=== PATIENT | male | born 1965 | race Caucasian/White ===

== ENCOUNTER 2021-05-10 18:03 | Inpatient (IN) | payer MEDICAID, SELFPAY ==
[2021-05-10] VITALS (11 sets, daily range): BP systolic 119–144; BP diastolic 87–104; PULSE 82–101; RESP 16–24; TEMP 36.2–36.8; O2SAT 92–96; BMI 36.2; BMI 36.5
--- NOTE | 2021-05-10 18:19 | EKG12_ITS ---
Test Reason : CP Blood Pressure : / mmHG Vent. Rate : 095 BPM Atrial Rate : 095 BPM P-R Int : 182 ms QRS Dur : 116 ms QT Int : 374 ms P-R-T Axes : 058 -02 045 degrees QTc Int : 469 ms Normal sinus rhythm Lateral infarct , age undetermined Abnormal ECG Confirmed by PIPER ROBISON, PEPITO ([id number]), editor department CURLY GRIMES ([id number]) on 05/13/2021 10:02:13 AM Referred By: BRI Confirmed By:PEPIOT SALDAÑA MD
[2021-05-10 18:27] LABS: Absolute Lymphocyte Count 2.35 X10^3/uL (0.83-4.51); Absolute Neutrophil Count 8.5 X10^3/uL (2.0-7.7); Basophil# 0.07 X10^3/uL; Basophil% 0.6 % (0-1); Eosinophil# 0.06 X10^3/uL; Eosinophils% 0.5 % (0-5); Hematocrit 50.5 % (40-54); Hemoglobin 16.5 g/dL (13.0-16.5); Lymphocyte # 2.35 X10^3/ul (0.83-4.51); Lymphocyte % 20.1 % (19-41); Mean Corp Hgb Conc 32.7 g/dL (32-36); Mean Corpuscular Hgb 29.9 pg (27.0-32.0); Mean Corpuscular Volume 91.5 fL (80-94); Mean Platelet Vol. 8.3 fl (6.2-12.0); Monocyte# 0.72 X10^3/uL; Monocyte% 6.1 % (0-10); NRBC Flagged by Analyzer 0 % (0-5); Neutrophil # 8.48 X10^3/uL (2.7-7.7); Neutrophil % 72.4 % (47-70); Platelet Count 366 K/mm3 (150-450); RBC Distribution Width CV 13.3 % (11.6-14.6); RBC Distribution Width SD 45.1 fl (35.1-43.9); Red Blood Count 5.52 M/mm3 (4.6-6.2); White Blood Count 11.7 K/mm3 (4.4-11.0)
--- NOTE | 2021-05-10 18:27 | RAD_ITS ---
STUDY: X-RAY CHEST REASON FOR EXAM: Male, 56 years old. chest pain TECHNIQUE: 1 view COMPARISON: None. FINDINGS: Cardiomediastinal silhouette is unremarkable. Costophrenic angles are sharp. Patchy opacities are noted in the bilateral mid to lower lung zones. The trachea is midline. There is no pneumothorax. There are degenerative changes of the bilateral shoulders and the thoracic spine. RAD/Chest 1 View (Portable) IMPRESSION: Patchy opacities in the bilateral mid to lower lung zones, due to pneumonia or aspiration. Electronically Signed: Elton Villareal MD at 19:18 EDT Tel , Service support ,
--- NOTE | 2021-05-10 18:33 | EDS_ITS ---
HPI History of Present Illness Chief Complaint: Chest Pain Informant: patient Narrative Narrative: 56-year-old male presenting with chest pain. Patient states this started this morning while he was working. He states he had persistent pain throughout the day that has been waxing and waning. He has associated shortness of breath, diaphoresis, nausea. He states pain is 10 out of 10. He has not had these symptoms in the past. He is a smoker. He admits to methamphetamine use. Prior similar symptoms: No Recent Illness/Hospitalization: No [facility] Medical History (Updated 05/10/21 @ 19:[address] Sylvie Terry MD) Alcohol abuse Chronic pain Smoker Substance abuse Home Medications NK 05/10/21 [History Last Taken Unknown] Allergy/AdvReac Type Severity Reaction Status Date / Time No Known Allergies Allergy Verified 05/10/21 18:04 Social History Smoking Status: Current every day smoker tobacco type: cigarettes ROS ROS ED Constitutional Constitutional ED: Denies fever(s) Eyes Eyes: Denies change in vision ENT ENT ED: Denies rhinorrhea or sore throat Cardiovascular Cardiovascular: Reports chest pain; Denies palpitations Respiratory/Chest Respiratory/Chest: Reports dyspnea; Denies cough Gastrointestinal Gastrointestinal: Reports nausea; Denies abdominal pain, diarrhea or vomiting Genitourinary Genitourinary ED: Denies dysuria Musculoskeletal Musculoskeletal: Denies myalgias Integumentary Denies rash Neurologic Neurologic: Denies headache(s) Psychiatric Psychiatric: Denies suicidal thoughts EXAM Physical Exam Const Vital Signs: 05/10/21 18:04 05/10/21 18:12 05/10/21 18:43 Temperature 97.4 F L Temperature Source Oral Pulse Rate 97 Respiratory Rate 16 Respiratory Effort Normal Blood Pressure 144/104 H Blood Pressure Mean 117 Pulse Ox 96 94 Oxygen Delivery Method Room Air Nasal Cannula Oxygen Flow Rate (L/min) 2 05/10/21 19:13 Temperature Temperature Source Pulse Rate 89 Respiratory Rate 19 H Respiratory Effort Blood Pressure 138/102 H Blood Pressure Mean 114 Pulse Ox 92 Oxygen Delivery Method Room Air Oxygen Flow Rate (L/min) Positive well nourished and well developed General Appearance ED: well developed HEENT Reports normocephalic and head/scalp atraumatic Eyes PERRL and EOMs intact bilaterally Neck supple General: Negative for tenderness Chest Wall inspection of chest normal Resp normal respiratory effort and clear to auscultation bilaterally Cardio regular rate and regular rhythm GI non-tender and non-distended Palpation: soft; Negative for guarding or rebound tenderness present no CVA tenderness Extremity normal to inspection Neuro oriented x3 Sensorium / Orientation: alert Psych mental status grossly normal MDM MDM MDM Narrative Medical decision making narrative: Patient was given aspirin, morphine, Zofran. On reevaluation, he is feeling improved, chest pain is down to 1 out of 10. Discussed with Dr. Hernandez, patient was given Brilinta and Lovenox. Chest x- ray read by radiology as patchy opacities bilateral mid to lower lungs. Patient has no cough or fever. Procalcitonin and Covid test were ordered and are pending. Discussed with hospitalist for admission. Lab Data Attestation: I reviewed the patient's lab results. Labs: Laboratory Results - last 24 hr 05/10/21 05/10/21 18:21 18:21 WBC 11.7 H RBC 5.52 Hgb 16.5 Hct 50.5 MCV 91.5 MCH 29.9 MCHC 32.7 RDW Std Deviation 45.1 H RDW Coeff of Jayna 13.3 Plt Count 366 MPV 8.3 Immature Gran % (Auto) 0.300 Neut % (Auto) 72.4 H Lymph % (Auto) 20.1 [place] % (Auto) 6.1 Eos % (Auto) 0.5 Baso % (Auto) 0.6 Absolute Neuts (auto) 8.5 H Absolute Lymphs (auto) 2.35 Nucleated RBC % 0 Sodium 134 L Potassium 4.1 Chloride 100 Carbon Dioxide 27.0 Anion Gap 7 BUN 13 Creatinine 0.93 Estim Creat Clear Calc 84.78 Est GFR (MDRD) Af Amer 107 Est GFR (MDRD) Non-Af 89 BUN/Creatinine Ratio 13.9 Glucose 120 H Calcium 9.0 Troponin I High Sens 5677.0 H* Radiography Chest X-Ray - ED: 1 View, Read by ED Physician and Read by Radiologist Diagnostic Testing: Radiology Impression Chest X-Ray 05/10/21 18:27 IMPRESSION: Patchy opacities in the bilateral mid to lower lung zones, due to pneumonia or aspiration. Electronically Signed: Elton Villareal MD at 19:18 EDT Tel , Service support , EKG Initial EKG: Attestation: I personally reviewed and interpreted this EKG as follows: Interpretation: Sinus Rhythm Comments: Slight ST elevation in lead V5 only Discharge Plan Triage Chief Complaint: Chest Pain ED Provider: Sylvie Terry Dx/Rx/DC Orders Clinical Impression: Non-ST elevation [place] (NSTEMI) Prescriptions: No Action NK RF: 0 Primary Care Provider: Tosha Russell NP Referrals: Tosha Russell NP, CONTRACTS ADMINISTRATOR-C [Primary Care Provider] - Disposition Disposition: Acute Care Hospital [facility]
[2021-05-10] MEDS: Aspirin 81 MG TAB.CHEW 324 MG PO (18:40)
[2021-05-10] MEDS: Morphine 4 MG/ML Syringe IV (18:40)
[2021-05-10] MEDS: Ondansetron 4 MG/2 ML Vial IV (18:40)
[2021-05-10 18:48] LABS: Anion Gap 7 (5-15); BUN 13 mg/dL (7-18); BUN/Creat Ratio 13.9 RATIO (10-20); Chloride 100 mmol/L (98-107); Creatinine, Serum 0.93 mg/dL (0.70-1.30); EST Glomerular Filtration Rate 89 mL/min (>60); Est Glom Filt Rate - Afr Amer 107 mL/min (>60); Estimated Creatinine Clearance 84.78 ml/min; Glucose 120 mg/dL (74-106); Potassium 4.1 mmol/L (3.5-5.1); Sodium Level 134 mmol/L (136-145)
[2021-05-10] MEDS: TICAGRELOR 90 MG TABLET 180 MG PO (19:24)
[2021-05-10] MEDS: Enoxaparin 100 MG/ML Syringe SC (19:24)
--- NOTE | 2021-05-10 20:04 | PCM.HP.STD ---
Documented by User: ELVIRA Barba 05/10/21 20:15 HPI - General General Date of Admission: 05/10/21 HPI Narrative KOURTNEY ELIZABETH, is a 56 M who presents with complaints of chest pain. 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 Patient states that he has no medical history and that he has never had chest pain like this before. Patient states the chest pain was sudden onset with a sharp stabbing sensation. Patient denies radiation to arm neck or jaw. Patient does report shortness of breath concurrent with chest pain. Patient denies fever, chills, cough, nausea, vomiting, diarrhea, constipation. [facility]LY [facility], LAT[facility] Medical History (Updated 05/10/21 @ 22:[address] David Hernandez MD) Alcohol abuse Chronic pain Illicit drug use Smoker Substance abuse Home Medications NK 05/10/21 [History Last Taken Unknown] Allergy/AdvReac Type Severity Reaction Status Date / Time No Known Allergies Allergy Verified 05/10/21 18:04 Family History (Updated 05/10/21 @ 20:05 by ELVIRA Barba) Father COPD (chronic obstructive pulmonary disease) Mother Heart disease Hypertension no surgical history Social History (Updated 05/10/21 @ 20:54 by Franny Olmstead) Smoking Status: Heavy Smoker (>10/day) alcohol intake: current alcohol intake frequency: 3 or more drinks per day Alcohol type: beer details: 12 pack/day- beer substance use type: methamphetamine ROS Constitutional Constitutional: Denies anorexia, change in weight, chills, fatigue, fever(s), malaise or weakness Cardiovascular Cardiovascular: Reports chest pain and dyspnea; Denies edema, palpitations or radiating jaw, neck or arm pain Respiratory/Chest Respiratory/Chest: Denies cough or hemoptysis Gastrointestinal Gastrointestinal: Denies abdominal pain, constipation, diarrhea, nausea or vomiting Genitourinary Genitourinary: Denies dysuria Musculoskeletal Musculoskeletal: Denies back pain, extremity pain, joint pain or joint stiffness Integumentary Integumentary: Denies dry skin Neurologic Neurologic: Denies abnormal gait, abnormal speech, confusion, dizziness, focal weakness or headache(s) Psychiatric Psychiatric: Denies anxiety or depression Endocrine Endocrinology: Denies change in body appearance Hematologic/Lymphatic Hematologic/Lymphatic: Denies easy bleeding or easy bruising Vital Signs Vital Signs Vital Signs: 05/10/21 18:04 05/10/21 18:12 05/10/21 18:43 Temperature 97.4 F L Temperature Source Oral Pulse Rate 97 Respiratory Rate 16 Respiratory Effort Normal Blood Pressure 144/104 H Blood Pressure Mean 117 Pulse Ox 96 94 Oxygen Delivery Method Room Air Nasal Cannula Oxygen Flow Rate (L/min) 2 05/10/21 19:13 05/10/21 19:54 Temperature 97.1 F L Temperature Source Temporal Pulse Rate 89 89 Respiratory Rate 19 H 22 H Respiratory Effort Blood Pressure 138/102 H 137/103 H Blood Pressure Mean 114 114 Pulse Ox 92 94 Oxygen Delivery Method Room Air Nasal Cannula Oxygen Flow Rate (L/min) 2 Weight Weight: 238 lb 8.642 oz Body Mass Index (BMI) 36.2 Physical Exam Const alert and oriented x3 General Appearance: cooperative HEENT normocephalic and head/scalp atraumatic Eyes conjunctivae normal and no scleral icterus Neck supple and no JVD General: trachea midline Resp normal respiratory effort and normal air movement Effort and Inspection: tachypneic Auscultation: diminished lung sounds diffuse Cardio regular rate, regular rhythm, S1 normal heart sound and S2 normal heart sound GI normal to inspection, nondistended, normoactive bowel sounds, soft to palpation and non-tender Extremity normal capillary refill and no clubbing, cyanosis or edema General Extremity: no tenderness to palpation of joints or extremities Skin General Skin Exam: no breakdown and turgor normal Lesions: no lesions Rashes: no rashes Neuro no focal motor deficits and no sensory deficits noted Speech: speech normal Motor Exam: Negative for general weakness Psych thought process normal Attitude: agitated Mood & Affect: flat affect Results Lab / Micro Data Result Diagrams: 05/10/21 18:21 05/10/21 18:21 Labs: Laboratory Results - last 24 hr 05/10/21 18:21: WBC 11.7 H, RBC 5.52, Hgb 16.5, Hct 50.5, MCV 91.5, MCH 29.9, MCHC 32.7, RDW Std Deviation 45.1 H, RDW Coeff of Jayna 13.3, Plt Count 366, MPV 8.3, Immature Gran % (Auto) 0.300, Neut % (Auto) 72.4 H, Lymph % (Auto) 20.1, [place] % (Auto) 6.1, Eos % (Auto) 0.5, Baso % (Auto) 0.6, Absolute Neuts (auto) 8.5 H, Absolute Lymphs (auto) 2.35, Nucleated RBC % 0 05/10/21 18:21: Sodium 134 L, Potassium 4.1, Chloride 100, Carbon Dioxide 27.0, Anion Gap 7, BUN 13, Creatinine 0.93, Estim Creat Clear Calc 84.78, Est GFR (MDRD) Af Amer 107, Est GFR (MDRD) Non-Af 89, BUN/Creatinine Ratio 13.9, Glucose 120 H, Calcium 9.0, Troponin I High Sens 5677.0 H* Radiology Impression Chest X-Ray 05/10/21 18:27 IMPRESSION: Patchy opacities in the bilateral mid to lower lung zones, due to pneumonia or aspiration. Electronically Signed: Elton Villareal MD at 19:18 EDT Tel , Service support , Assessment & Plan Assessment/Plan (1) Non-ST elevation [place] (NSTEMI): PLAN: 1. Chest pain -Admit patient to PCU for cardiac monitoring -Cardiology consulted, patient discussed with Dr. Hernandez who plans to take patient to Computer Systems Designer first thing in the morning. -Trend cardiac enzymes, initial value 5677 -CBC and CMP ordered for a.m. -Daily weights -Cardiac diet ordered, n.p.o. at midnight -Encourage incentive spirometry -oxygen per protocol -EKG upon arrival to floor, as needed EKG ordered for arrhythmia or chest pain -Loading dose of Brilinta received in ER along with therapeutic subcu Lovenox, will continue Brilinta 90 mg twice daily 2. Possible pneumonia -Chest x-ray shows possible pneumonia versus aspiration -Due to patient presentation and denial of fever, chills, cough will obtain procalcitonin and Covid test prior to initiation of antibiotics -CBC in a.m., trend white blood cell count 3. Alcohol abuse -CIWA protocol with as needed Ativan per protocol -Multivitamin, folic acid, thiamine ordered 4. Tobacco abuse -Inpatient smoking cessation ordered DVT prophylaxis-SCDs, would recommend starting subcu Lovenox following heart catheterization This patient was seen by ELVIRA Barba under the supervision of Dr. Abreu. Documented by User: Dr. Ángel Abreu MD 05/11/21 00:27 HPI - General General Date of Admission: 05/10/21 [facility] Medical History (Updated 05/10/21 @ 22:[address] David Hernandez MD) Alcohol abuse Chronic pain Illicit drug use Smoker Substance abuse Home Medications NK 05/10/21 [History Last Taken Unknown] Allergy/AdvReac Type Severity Reaction Status Date / Time No Known Allergies Allergy Verified 05/10/21 18:04 Family History (Updated 05/10/21 @ 20:05 by ELVIRA Barba) Father COPD (chronic obstructive pulmonary disease) Mother Heart disease Hypertension Social History (Updated 05/10/21 @ 20:54 by Franny Olmstead) Smoking Status: Heavy Smoker (>10/day) alcohol intake: current alcohol intake frequency: 3 or more drinks per day Alcohol type: beer details: 12 pack/day- beer substance use type: methamphetamine Results Lab / Micro Data Result Diagrams: 05/10/21 18:21 05/10/21 18:21 Charges/Coding Addendum Addendum: Patient was seen and examined independently. I agree with assessment and plan by ELVIRA Barba Patient is a 56-year-old male with a significant history of alcoholism; methamphetamine abuse; and tobacco abuse who presents emergency department with persistent intermittent severe chest pain. A chest pain is located under his left breast. His chest pain does not radiate. He described the chest pain as sharp, pushing and dull. His chest pain started after working. His chest pain was so severe that he left work. 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 Associated with his symptom is shortness of breath lightheadedness and diaphoresis. Physical exam: General: Well-nourished, well-developed, no acute distress Head: Normocephalic, atraumatic, no tenderness Eyes: PERRLA, EOMI ENT, no trauma, moist mucous membranes, no rhinorrhea Neck: Nontender, full range of motion, no spinal tenderness, deformities, step-off CVS: Regular rate and rhythm Respiratory no acute distress, clear to auscultation bilaterally, chest wall nontender, no wheezing Abdomen: Soft, nontender, nondistended, normal bowel sounds, no masses : Deferred Extremities: Nontender full range of motion, no trauma Skin: Normal color, no trauma, abrasions Neuro: Alert, oriented, cranial nerves II through XII grossly intact. Non-STEMI Place on a monitored bed at PCU Impression of chest x-ray by radiology patchy opacities in the bilateral mid to lower lung zones, due to pneumonia or aspiration .Actual CXR image was independently visualized. Diffuse patchy opacities seen. Actual EKG tracing was independently visualized. EKG tracing showed Q waves in lateral leads. Received aspirin 324 mg at the emergency department. Also he received therapy dose of Lovenox and Brilinta. Per cardiology recommendation patient will be started on Brilinta. ASA 81 mg p.o. daily ordered SL NTG 0.4 mg prn as needed for chest pain ordered Morphine as needed for pain ordered We will check lipid panel. ED labs reviewed showed severely elevated high-sensitivity troponin. Serial cardiac enzymes ordered Stat EKG as needed for chest pain We will keep n.p.o. after midnight. Cardiology consult. Elevated blood pressure without diagnosis of hypertension His blood pressure is not within goal. Trend blood pressures for now. Tobacco abuse Counseled Alcohol abuse Counseled. Folic acid; thiamine; multivitamins ordered. Placed on CIWA protocol as needed Ativan. Methamphetamine abuse Counselled Abnormal x-ray No clinical symptoms of pneumonia. Review of Emergency department labs showed only mild elevated white counts. Discussed with ED doc to get procalcitonin and Covid screen. DVT prophylaxis: Not indicated since patient received therapeutic dose of Lovenox. Visit Charges Inpatient E&M: 51933 Init Hosp L3
[2021-05-10 20:39] LABS: Procalcitonin 0.06 ng/mL (0.00-0.09)
--- NOTE | 2021-05-10 20:43 | EKG12_ITS ---
Test Reason : CP ADMIT Blood Pressure : / mmHG Vent. Rate : 097 BPM Atrial Rate : 097 BPM P-R Int : 170 ms QRS Dur : 112 ms QT Int : 378 ms P-R-T Axes : 063 -16 029 degrees QTc Int : 480 ms Normal sinus rhythm Lateral infarct , age undetermined Inferior infarct , age undetermined Abnormal ECG Confirmed by PIPER ROBISON, PEPITO ([id number]), development editor CURLY GRIMES ([id number]) on 05/13/2021 10:20:03 AM Referred By: Confirmed By:PEPITO SALDAÑA MD
[2021-05-10] MEDS: Nitroglycerin (INPATIENT USE) 0.4 MG TAB.SUBL SL (21:52)
--- NOTE | 2021-05-10 22:07 | CM.ED ---
SW Note Referral Source: STEMI Alert Referral Reason: STEMI alert SW responded to STEMI alert for patient. Patient was alert and oriented. Per staff no family present. RN called patient's significant other and updated about patient's procedure. SW offered any additional support or assistance to family. SW will remain available for family if needs arise. Plan: Product Applications Engineer for STEMI and then ICU Dania ACUÑA
--- NOTE | 2021-05-10 22:23 | PCM.CONS.C ---
Assessment & Plan Assessment/Plan (1) Chest pain, unspecified: QUALIFIERS: Ischemic chest pain type: unstable angina pectoris PLAN: He does have chest discomfort which is waxed and waned. It is concerning for unstable angina pectoris. He was noted to have an abnormal troponin I level and abnormal ECGs. Initially at the time of his original emergency department cardiovascular consultation he appeared to be resting comfortably. At that time the plan was to continue to monitor the patient, follow his cardiac enzymes and his ECGs, and subsequently obtain further evaluation was left ventricular wall motion systolic function with a transthoracic echocardiogram as well as obtain further evaluation of his coronary anatomy with a diagnostic cardiac catheterization. He was to continue medical therapy in the interim. However, after being admitted the PCU, he had recurrence of his chest discomfort. A follow-up ECG demonstrated the aforementioned changes concerning for an evolving acute inferior lateral MO/STEMI. Thus after discussion with interventional cardiology a STEMI alert was initiated. The patient has subsequently been brought to the cardiac catheterization laboratory for further evaluation and care. (2) Non-ST elevation MO (NSTEMI): PLAN: The patient does have findings initially thought compatible with a non-ST segment elevation MO. There would be concerns that his original event may have been brought on by a type I event secondary to underlying CAD versus a type II event secondary to supply demand mismatch potentially exacerbated by the use of illicit drugs such as his methamphetamine. As his clinical course has progressed, as noted above, he now appears to have evolved to an ST segment elevation MO. Thus he is continuing medical therapy and has been brought to the cardiac catheterization laboratory for further evaluation and care under the direction of interventional cardiology. (3) HTN (hypertension): QUALIFIERS: Hypertension type: unspecified Qualified Code(s): I10 - Essential (primary) hypertension PLAN: His blood pressure was elevated in the emergency department. He states he has no history of hypertension. His blood pressure will need to be followed and treated accordingly. 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 Again it is unclear whether this may be a contributing factor to his ongoing cardiovascular findings. Addt'l Comments The patient's case has been previously discussed with the patient, his female significant other, Dr. Terry of the [facility] emergency department staff, Dr. Abreu of the [facility] staff, and Dr. Lynch of interventional cardiology. This note was generated using a voice recognition system and there may be incorrect words, spelling or punctuation that were not noted when reviewing the office note prior to saving. HPI Consult Data Date of Consult: 05/10/21 HPI Narrative HPI Narrative: KOURTNEY ELIZABETH, is a 56 year old white male who presents for cardiovascular consultation for evaluation of chest discomfort, abnormal troponin I levels, and an abnormal ECG. The patient states the best of his knowledge she has no cardiovascular history and he does not recall ever undergoing any cardiovascular evaluation. He states today he developed chest discomfort which was substernal. He stated he had numbness in both upper extremities. He felt somewhat short of breath. He was also somewhat diaphoretic. He believes he may have been somewhat nauseated but did not have emesis. He does admit to using methamphetamine yesterday as recreational use. He subsequently presented to the emergency department for further evaluation. There he was noted to have an abnormal troponin I level. His ECG demonstrated sinus rhythm with a lateral MO pattern of indeterminate age. A chest x-ray was performed which demonstrated bilateral lower lobe patchy changes per radiology (please see official report). He was treated by the emergency room staff with a combination of aspirin, morphine sulfate, and Zofran. Status post evaluation of his cardiovascular status he received additional medical therapy with ticagrelor/Brilinta as well as enoxaparin/Lovenox. At the time of the emergency department cardiovascular consultation he appeared to be resting comfortably. Thus, he was subsequently was placed in the PCU for further evaluation and care which was to include from a cardiovascular standpoint transthoracic echocardiogram and diagnostic cardiac catheterization. After he was admitted to the PCU he noted recurrence of his chest discomfort. A repeat ECG was obtained. Based upon the repeat ECG there was concerns of sinus rhythm with ST segment changes concerning for an acute inferior lateral MO/STEMI. He was reevaluated at the bedside. His case was reviewed with Dr. Lynch of interventional cardiology. He concurred with the aforementioned findings. A STEMI alert was subsequently initiated. The patient was recommended for further evaluation with diagnostic cardiac catheterization per the STEMI protocol and he was in agreement with this. Thus he was subsequently taken to the cardiac catheterization laboratory for further evaluation and care under the direction of Dr. Lynch. [facility] Medical History (Updated 05/10/21 @ 22:[address] David Hernandez MD) Alcohol abuse Chronic pain Illicit drug use Smoker Substance abuse Home Medications NK 05/10/21 [History Last Taken Unknown] Allergy/AdvReac Type Severity Reaction Status Date / Time No Known Allergies Allergy Verified 05/10/21 18:04 Family History (Updated 05/10/21 @ 20:05 by Janett Martin NP-C) Father COPD (chronic obstructive pulmonary disease) Mother Heart disease Hypertension Social History (Updated 05/10/21 @ 20:54 by Franny Olmstead) Smoking Status: Heavy Smoker (>10/day) alcohol intake: current alcohol intake frequency: 3 or more drinks per day Alcohol type: beer details: 12 pack/day- beer substance use type: methamphetamine ROS Constitutional Constitutional: Reports as per HPI Eyes Eyes: Reports as per HPI ENT HEENT: Reports as per HPI Cardiovascular Cardiovascular: Reports chest pain, chest pain at rest, diaphoresis, dyspnea and nausea Respiratory/Chest Respiratory/Chest: Reports dyspnea Gastrointestinal Gastrointestinal: Reports as per HPI Genitourinary Genitourinary: Reports as per HPI Musculoskeletal Musculoskeletal: Reports as per HPI Neurologic Neurologic: Reports as per HPI Physical Exam Const alert and oriented x3 Orientation / Consciousness: awake HEENT normocephalic, head/scalp atraumatic and hearing grossly normal bilaterally Eyes PERRL and EOMs intact bilaterally Neck full ROM, supple and no JVD Chest inspection of chest normal Chest Narrative: Palpation of chest: Tenderness to palpation over the left precordial area Resp normal respiratory effort and clear to auscultation bilaterally Cardio regular rate, regular rhythm, S1 normal heart sound and S2 normal heart sound GI normal to inspection, nondistended, normoactive bowel sounds Extremity no pedal edema Skin Skin Narrative: No obvious rash Neuro oriented x3, moves all extremities, no focal motor deficits and no sensory deficits noted Psych mental status grossly normal Procedure Criteria Type of Procedure Procedure Type: Elective Elective Risks - COVID COVID Risk Discussion: The surgeon/proceduralist and patient have discussed in detail the risk of exposure to and/or potential harm posed by the COVID-19 virus with having a surgery/procedure at this time versus the risk of delaying the surgery/procedure. It is not possible to know either the risk of delaying the surgery or procedure or chance of getting an infection with perfect accuracy, but a joint decision was made between the patient and the surgeon/proceduralist to proceed at this time with the scheduled surgery/procedure as indicated on the consent form. Objective Data Vital Signs: Vital Signs Temp Pulse Resp BP Pulse Ox 97.7 F L 101 H 20 H 132/97 H 93 05/10/21 21:56 05/10/21 21:56 05/10/21 21:56 05/10/21 21:56 05/10/21 21:56 Oxygen Flow Rate (L/min) 2 Oxygen Delivery Method Nasal Cannula Weight: 240 lb 4.862 oz Body Mass Index (BMI) 36.5 Lab / Micro Data Result Diagrams: 05/10/21 18:21 05/10/21 18:21 Labs: Laboratory Results - last 24 hr 05/10/21 18:21: WBC 11.7 H, RBC 5.52, Hgb 16.5, Hct 50.5, MCV 91.5, MCH 29.9, MCHC 32.7, RDW Std Deviation 45.1 H, RDW Coeff of Jayna 13.3, Plt Count 366, MPV 8.3, Immature Gran % (Auto) 0.300, Neut % (Auto) 72.4 H, Lymph % (Auto) 20.1, [place] % (Auto) 6.1, Eos % (Auto) 0.5, Baso % (Auto) 0.6, Absolute Neuts (auto) 8.5 H, Absolute Lymphs (auto) 2.35, Nucleated RBC % 0 05/10/21 18:21: Sodium 134 L, Potassium 4.1, Chloride 100, Carbon Dioxide 27.0, Anion Gap 7, BUN 13, Creatinine 0.93, Estim Creat Clear Calc 84.78, Est GFR (MDRD) Af Amer 107, Est GFR (MDRD) Non-Af 89, BUN/Creatinine Ratio 13.9, Glucose 120 H, Calcium 9.0, Troponin I High Sens 5677.0 H* 05/10/21 20:03: Procalcitonin 0.06 Micro: Microbiology 05/10/21 19:25 Mucosa - Nose SARS-CoV-2 Antigen (Rapid) - Final Cardiology Labs/Tests 05/10/21 18:21: WBC 11.7 H, RBC 5.52, Hgb 16.5, Hct 50.5, MCV 91.5, MCH 29.9, MCHC 32.7, Plt Count 366, MPV 8.3, Immature Gran % (Auto) 0.300, Neut % (Auto) 72.4 H, Lymph % (Auto) 20.1, [place] % (Auto) 6.1, Eos % (Auto) 0.5, Baso % (Auto) 0.6, Absolute Neuts (auto) 8.5 H, Nucleated RBC % 0 05/10/21 18:21: Sodium 134 L, Potassium 4.1, Chloride 100, Carbon Dioxide 27.0, Anion Gap 7, BUN 13, Creatinine 0.93, Est GFR (MDRD) Af Amer 107, Est GFR (MDRD) Non-Af 89, BUN/Creatinine Ratio 13.9, Glucose 120 H, Calcium 9.0 Rhythm: Sinus rhythm EKG: As noted above Radiography Diagnostic Testing: Radiology Impression Chest X-Ray 05/10/21 18:27 IMPRESSION: Patchy opacities in the bilateral mid to lower lung zones, due to pneumonia or aspiration. Electronically Signed: Elton Villareal MD at 19:18 EDT Tel , Service support ,
--- NOTE | 2021-05-10 22:42 | NURSING ---
Called report to GREER Morel in ICU.
--- NOTE | 2021-05-10 23:11 | EKG12_ITS ---
Test Reason : CP ADMIT Blood Pressure : / mmHG Vent. Rate : 094 BPM Atrial Rate : 094 BPM P-R Int : 186 ms QRS Dur : 114 ms QT Int : 360 ms P-R-T Axes : 060 011 085 degrees QTc Int : 450 ms Normal sinus rhythm Lateral infarct , age undetermined Inferior infarct , possibly acute ACUTE TX / STEMI Consider right ventricular involvement in acute inferior infarct Abnormal ECG Confirmed by PIPER ROBISON, PEPITO ([id number]), assistant film editor CURLY GRIMES ([id number]) on 05/13/2021 10:20:27 AM Referred By: Confirmed By:PEPITO SALDAÑA MD
--- NOTE | 2021-05-10 23:18 | PCIREPORT_ITS ---
PCI Cardiac Cath Report PCI Report: Procedure performed; 1. Successful percutaneous core intervention of the culprit lesion occluded proximal LAD left circumflex with predilatation and placement of a drug-eluting stent 3 x 26 overlapped by 3 x 18 and achieved excellent result With reduction of stenosis from 100% to 0 and initial GABRIELA 0 flow followed post PCI by GABRIELA III. 2. Placement of TR band to close the right radial artery arteriotomy site 3. Left heart catheterization 4. Use of Integrilin 2 bolus followed by Integrilin infusion for 18 hours/for thrombus in the proximal left circumflex. Preprocedure diagnosis; This patient was seen by Dr. Luciano dowling today when he presented to the ER having symptoms of chest pain typical retrosternal with elevated high sensitive troponin diagnosed with non-ST elevation MT and was taken to the progressive care unit started on Lovenox given 1 mg/kg a total of 100 mg of Lovenox nitroglycerin aspirin Brilinta and while he was in PCU he developed recurrent chest pain EKG showed significant change with ST elevation noted in the inferolateral lead and ST depression was noted in the anterior lead. Based on this clinical presentation and change in the EKG and ongoing symptoms of chest pain was taken as an emergency to the [facility] with a clinical diagnosis of STEMI. From the EKG change likely the lesion could be in the left circumflex. Access; Right radial artery approach with placement of 6 Kazakh Terumo sheath Diagnostic catheter and interventional equipment; 1. 5 Kazakh JL 3.5 2. 5 Kazakh JR4 catheter 3. 3.5 EBU guide catheter 6 Kazakh. 4. 0.014 BMW universal straight 190 cm 5. 0.014 run-through extra floppy 180 cm straight. 6. 2.5 x 15 mm emerge MR balloon 7. 3 x 26 +3 x 18 mm drug-eluting stent/Orsiro Procedure in detail; Patient brought as an emergency to [facility] Access obtained from the right radial artery and a cocktail of verapamil, heparin as well as nitroglycerin was given through the right radial artery The new proceed with the 5 Kazakh JL 3.5 advanced ascending aorta cannulated the left main multiple views of the left coronary system obtained including ST LUCIAN, WRIGHT cranial and caudal views followed by [place] JR4 catheter and selective angiography of right consumer obtained following this cholangiography were studied Culprit lesion identified as occluded proximal left circumflex we proceed with the guide catheter 3.5 EBU guide catheter cannulated the left main angiographic view obtained followed by crossing the lesion using run-through 0.014 wire, predilated the lesion using 2.5 x 50 mm balloon followed by placement of a drug- eluting stent 3 x 26 mm noted there is a thrombus in the distal portion of the stent overlap 3 x 18 stent postdilated up to 16 CELIA and achievement of excellent result angiographically. Symptoms of chest pain resolved and patient remained stable hemodynamically. Please note this patient received 100 mg of Lovenox around 7:00 PM and then taken to the [facility] around 10:00 less than 8-hour there is no indication to add any further anticoagulation at this point and we use Integrilin in this case due to the thrombus at the distal portion of the stent. Findings; 1. Left main normal angiographically bifurcating into LAD and the left circumflex. 2. LAD large vessel reach all the way to the apex, mid LAD there is a sidebranch which is moderate in size with 70% stenosis mid LAD itself has no o bstructive atherosclerosis of around 30% it reach all the way to the apex and has abundant septal branches 3. Left circumflex occluded proximally/culprit lesion for STEMI with successful PCI as described. 4. RCA moderate sized vessel angiographically mid RCA had around 20-30% stenosis 5. Left ventriculogram was performed, EF around 35% with inferobasal and apical hypokinesia, no systolic gradient across aortic valve and no mitral regurgitation. Conclusion; This patient has culprit lesion of occluded proximal circumflex with successful percutaneous catheterization as described The LV systolic function severely reduced which is out of proportion to his coronary lesions. Recommendations; 1. To continue DAPT/Brilinta 90 mg twice daily in addition to low-dose aspirin 81 mg for 1 year 2. Case discussed with the primary regulated program manager Dr. Hernandez will start patient on treatment with a statin, carvedilol, MARY inhibitor in addition to dual antiplatelet therapy 3. Patient advised lifestyle change 4. If he remains stable clinically to consider PCI of the sidebranch diagonal proximal around 70% which can be done as an outpatient in 2 to 3 weeks. Ghada Lycnh MD,FACC,[facility] Interventional cardiology
--- NOTE | 2021-05-10 23:45 | NURSING ---
231- [facility]. Patient assessed and settled. Integrilin drip is on and to run at 2mcg/kg/min according to dr. Lynch. Post cardiac cath EKG is done and sent to Dr. Lynch.
[2021-05-10] MEDS: 0.9% Normal Saline 1,000 ML 150 ML IV (23:54)
[2021-05-10] MEDS: Morphine 2 MG/ML Syringe IV (23:57)
[2021-05-11] VITALS (24 sets, daily range): BP systolic 108–152; BP diastolic 65–104; PULSE 80–99; RESP 12–25; TEMP 36.2–36.9; O2SAT 90–97
[2021-05-11 00:33] LABS: Absolute Lymphocyte Count 2.23 X10^3/uL (0.83-4.51); Absolute Neutrophil Count 12.5 X10^3/uL (2.0-7.7); Basophil# 0.06 X10^3/uL; Basophil% 0.4 % (0-1); Eosinophil# 0.09 X10^3/uL; Eosinophils% 0.6 % (0-5); Hematocrit 49.7 % (40-54); Hemoglobin 16.3 g/dL (13.0-16.5); Lymphocyte # 2.23 X10^3/ul (0.83-4.51); Lymphocyte % 14.1 % (19-41); Mean Corp Hgb Conc 32.8 g/dL (32-36); Mean Corpuscular Hgb 30.4 pg (27.0-32.0); Mean Corpuscular Volume 92.6 fL (80-94); Mean Platelet Vol. 8.4 fl (6.2-12.0); Monocyte# 0.84 X10^3/uL; Monocyte% 5.3 % (0-10); NRBC Flagged by Analyzer 0 % (0-5); Neutrophil # 12.51 X10^3/uL (2.7-7.7); Neutrophil % 79.2 % (47-70); Platelet Count 374 K/mm3 (150-450); RBC Distribution Width CV 13.4 % (11.6-14.6); RBC Distribution Width SD 45.8 fl (35.1-43.9); Red Blood Count 5.37 M/mm3 (4.6-6.2); White Blood Count 15.8 K/mm3 (4.4-11.0)
[2021-05-11 01:15] LABS: Anion Gap 9 (5-15); BUN 12 mg/dL (7-18); BUN/Creat Ratio 13.6 RATIO (10-20); Calcium,Total 8.9 mg/dL (8.5-10.1); Chloride 98 mmol/L (98-107); Creatinine, Serum 0.88 mg/dL (0.70-1.30); EST Glomerular Filtration Rate 94 mL/min (>60); Est Glom Filt Rate - Afr Amer 114 mL/min (>60); Glucose 117 mg/dL (74-106); Potassium 3.9 mmol/L (3.5-5.1); Sodium Level 136 mmol/L (136-145)
--- NOTE | 2021-05-11 02:18 | NURSING ---
Physician Notifications: Dr. Lynch Notifications: [id number]: Post cardiac cath sent to Dr. Lynch 0021: Dr. Lynch responded noted and to hold Lovenox. 0043: Patient is threatening to leave AMA 0045: Dr. Lynch responded to let Dr. Hernandez know due to being a high risk patient 0053: Dr. Hernandez notified and message left on significant other's voicemail 0052: Dr. Lynch responded noted 0151: Patient has agreed to stay until mid morning. Dr. Hernandez Notifications: 0048: Patient threatening to leave AMA after TR band is removed. Will most likely be able to me removed at 1am. Janett Carmona CNP is coming to bedside to speak with patient. 0049: Dr. Hernandez responded all you can do is encourage patient to stay, maybe try to speak with spouse 0052: I called and left message with Franny the significant other. 0137: Patient's TR band is off and dressing applied. I stressed to patient how dangerous it is to leave at this time and that he could bleed out and . Patient states that he is still leaving regardless of risks. 0139: Dr. Hernandez responded patient's decision and thank you for your efforts 0140: Patient's post cath troponin came back >125,000 0150: Patient has now agreed to stay until mid morning 0150: Dr. Hernandez responded noted Dr. Abreu Notifications: 0002: Post Cardiac Cath EKG sent 0002: Dr. Abreu responded noted 0139: Patient states he is leaving AMA now that the TR band is off and dressing is applied. I called and left message for Franny the significant other and notified Dr. Hernandez. I stressed how dangerous it is for him to leave and how he could bleed out and but patient says he is still leaving. 0139: Dr. Abreu responded to let him know when patient leaves. Janett Martin CNP Notifications: 0043: Could you call so I can speak with you about ICU 5 0045: Janett called and I stated that patient is wanting to leave AMA. I stressed the danger of leaving and he still is persitent on leaving. Janett stated that she would be up to assess. 0050: Janett is at bedside assessing and speaking with patient stressing the risks of leaving AMA. 0135: Patient states that he is ready to leave but wants to speak with doctor first 0136: Janett calls back and states she will be up to speak with patient once again. 0145: Janett is at bedside talking with patient once again. Patient has agreed to stay until mid morning 0130: TR band is off and dressing is applied. Site looks good, no drainage, brill, or hematoma. Patient states now that the band is off he is ready to leave. I stated that there are a lot of risks if he were to leave. Risks including bleeding out from puncture site with being on anticoagulants including the Integrilin drip or having a heart attack after his cardiac procedure. I also informed him that he needs to sign AMA form and needs to find his own transportation but should speak with physician about leaving. He agreed to speak with physician before leaving. Janett Martin CNP spoke with patient more in depth about risks and patient agreed to stay until mid morning. Will continue to encourage benefits of staying and continue to monitor closely.
[2021-05-11] MEDS: 0.9% Normal Saline 1,000 ML 150 ML IV (03:07)
[2021-05-11 05:39] LABS: Absolute Lymphocyte Count 2.35 X10^3/uL (0.83-4.51); Absolute Neutrophil Count 7.5 X10^3/uL (2.0-7.7); Basophil# 0.05 X10^3/uL; Basophil% 0.5 % (0-1); Eosinophil# 0.09 X10^3/uL; Eosinophils% 0.8 % (0-5); Hematocrit 47.8 % (40-54); Hemoglobin 16.2 g/dL (13.0-16.5); Lymphocyte # 2.35 X10^3/ul (0.83-4.51); Lymphocyte % 21.7 % (19-41); Mean Corp Hgb Conc 33.9 g/dL (32-36); Mean Corpuscular Volume 91.4 fL (80-94); Mean Platelet Vol. 8.3 fl (6.2-12.0); Monocyte# 0.79 X10^3/uL; Monocyte% 7.3 % (0-10); NRBC Flagged by Analyzer 0 % (0-5); Neutrophil # 7.51 X10^3/uL (2.7-7.7); Neutrophil % 69.2 % (47-70); Platelet Count 361 K/mm3 (150-450); RBC Distribution Width CV 13.5 % (11.6-14.6); RBC Distribution Width SD 45.7 fl (35.1-43.9); Red Blood Count 5.23 M/mm3 (4.6-6.2); White Blood Count 10.8 K/mm3 (4.4-11.0)
[2021-05-11 05:57] LABS: ALB/GLOB Ratio 0.7 RATIO (0.9-2.4); AST(SGOT) 957 U/L (15-37); Alanine Aminotransfer ALT/SGPT 132 U/L (16-61); Albumin, Serum 3.2 g/dL (3.2-5.0); Alkaline Phosphatase 100 U/L (45-117); Anion Gap 7 (5-15); BUN 12 mg/dL (7-18); BUN/Creat Ratio 14.3 RATIO (10-20); Bilirubin, Direct 0.16 mg/dL (0.00-0.30); Calcium,Total 8.3 mg/dL (8.5-10.1); Chloride 96 mmol/L (98-107); Creatinine, Serum 0.84 mg/dL (0.70-1.30); EST Glomerular Filtration Rate 100 mL/min (>60); Est Glom Filt Rate - Afr Amer 122 mL/min (>60); Estimated Creatinine Clearance 93.87 ml/min; Globulin 4.6 g/dL (2.2-4.2); Glucose 112 mg/dL (74-106); Potassium 4.2 mmol/L (3.5-5.1); Protein, Total 7.8 g/dL (6.4-8.2); Sodium Level 133 mmol/L (136-145)
--- NOTE | 2021-05-11 06:00 | EKG12_ITS ---
Test Reason : AM EKG Blood Pressure : / mmHG Vent. Rate : 083 BPM Atrial Rate : 083 BPM P-R Int : 156 ms QRS Dur : 100 ms QT Int : 414 ms P-R-T Axes : 054 -58 066 degrees QTc Int : 486 ms Normal sinus rhythm Left axis deviation Lateral infarct , age undetermined Abnormal ECG Confirmed by JARAD ROBISON, JOSE ([id number]), acquisition editor CURLY GRIMES ([id number]) on 05/13/2021 10:26:56 AM Referred By: AMBER Confirmed By:JOSE ABRAHAM MD
--- NOTE | 2021-05-11 06:05 | NURSING ---
0600- Spoke with significant other Franny on the phone about patient wanting to leave AMA and all the risks of doing so. She asked if she could come in and speak with him and try to get him to stay. I stated that she was welcome to come and speak with him. She stated she was on her way.
[2021-05-11 08:02] LABS: Cholesterol 162 mg/dL (200); High Density Lipoprotein 47 mg/dL; Triglycerides 122 mg/dL; Very Low Density Lipoprotein 24 mg/dL (5-40)
--- NOTE | 2021-05-11 08:30 | PN.CARD_ITS ---
Subjective Subjective Patient seen and evaluated today at bedside, and discussed with the nursing staff and the primary tanyard worker Dr. Hernandez Spouse was at bedside patient is 59 of discharge AGAINST MEDICAL ADVICE Patient had a history of illicit drug use, alcohol abuse and smoking He had no symptoms of active chest pain. Objective Data Vital Signs: Vital Signs Temp Pulse Resp BP Pulse Ox 98.5 F 88 21 H 116/78 94 05/11/21 04:00 05/11/21 07:00 05/11/21 07:00 05/11/21 07:00 05/11/21 07:17 Oxygen Flow Rate (L/min) 2 Oxygen Delivery Method Room Air Weight: 238 lb 12.17 oz Body Mass Index (BMI) 36.5 Intake & Output: Intake and Output for Last 24 Hours 05/09/21 05/10/21 05/11/21 23:59 23:59 23:59 Intake Total 549.2 / 549.2 Output Total 2600 / 2600 Balance -2050.8 / -2050.8 Lab / Micro Data Result Diagrams: 05/11/21 05:30 05/11/21 05:30 Labs: Laboratory Results - last 24 hr 05/10/21 18:21: WBC 11.7 H, RBC 5.52, Hgb 16.5, Hct 50.5, MCV 91.5, MCH 29.9, MCHC 32.7, RDW Std Deviation 45.1 H, RDW Coeff of Jayna 13.3, Plt Count 366, MPV 8.3, Immature Gran % (Auto) 0.300, Neut % (Auto) 72.4 H, Lymph % (Auto) 20.1, Villalba % (Auto) 6.1, Eos % (Auto) 0.5, Baso % (Auto) 0.6, Absolute Neuts (auto) 8.5 H, Absolute Lymphs (auto) 2.35, Nucleated RBC % 0 05/10/21 18:21: Sodium 134 L, Potassium 4.1, Chloride 100, Carbon Dioxide 27.0, Anion Gap 7, BUN 13, Creatinine 0.93, Estim Creat Clear Calc 84.78, Est GFR (MDRD) Af Amer 107, Est GFR (MDRD) Non-Af 89, BUN/Creatinine Ratio 13.9, Glucose 120 H, Calcium 9.0, Troponin I High Sens 5677.0 H* 05/10/21 20:03: Procalcitonin 0.06 05/10/21 21:45: Troponin I High Sens 03780.1 H* 05/11/21 00:25: Sodium 136, Potassium 3.9, Chloride 98, Carbon Dioxide 29.0, Anion Gap 9, BUN 12, Creatinine 0.88, Estim Creat Clear Calc 89.60, Est GFR (MDRD) Af Amer 114, Est GFR (MDRD) Non-Af 94, BUN/Creatinine Ratio 13.6, Glucose 117 H, Calcium 8.9, Troponin I High Sens > 045862.0 H* 05/11/21 00:25: WBC 15.8 H, RBC 5.37, Hgb 16.3, Hct 49.7, MCV 92.6, MCH 30.4, MCHC 32.8, RDW Std Deviation 45.8 H, RDW Coeff of Jayna 13.4, Plt Count 374, MPV 8.4, Immature Gran % (Auto) 0.400, Neut % (Auto) 79.2 H, Lymph % (Auto) 14.1 L, Villalba % (Auto) 5.3, Eos % (Auto) 0.6, Baso % (Auto) 0.4, Absolute Neuts (auto) 12.5 H, Absolute Lymphs (auto) 2.23, Nucleated RBC % 0 05/11/21 05:30: WBC 10.8, RBC 5.23, Hgb 16.2, Hct 47.8, MCV 91.4, MCH 31.0, MCHC 33.9, RDW Std Deviation 45.7 H, RDW Coeff of Jayna 13.5, Plt Count 361, MPV 8.3, Immature Gran % (Auto) 0.500, Neut % (Auto) 69.2, Lymph % (Auto) 21.7, Villalba % (Auto) 7.3, Eos % (Auto) 0.8, Baso % (Auto) 0.5, Absolute Neuts (auto) 7.5, Absolute Lymphs (auto) 2.35, Nucleated RBC % 0 05/11/21 05:30: Sodium 133 L, Potassium 4.2, Chloride 96 L, Carbon Dioxide 30.0, Anion Gap 7, BUN 12, Creatinine 0.84, Estim Creat Clear Calc 93.87, Est GFR (MDRD) Af Amer 122, Est GFR (MDRD) Non-Af 100, BUN/Creatinine Ratio 14.3, Glucose 112 H, Calcium 8.3 L, Total Bilirubin 0.90, Direct Bilirubin 0.16, AST 957 H, ALT 132 H, Alkaline Phosphatase 100, Total Protein 7.8, Albumin 3.2, Globulin 4.6 H, Albumin/Globulin Ratio 0.7 L 05/11/21 05:30: Triglycerides 122, Cholesterol 162, LDL Cholesterol 91, VLDL Cholesterol 24, HDL Cholesterol 47 Micro: Microbiology 05/10/21 19:25 Mucosa - Nose SARS-CoV-2 Antigen (Rapid) - Final Cardiology Labs/Tests 05/10/21 18:21: WBC 11.7 H, RBC 5.52, Hgb 16.5, Hct 50.5, MCV 91.5, MCH 29.9, MCHC 32.7, Plt Count 366, MPV 8.3, Immature Gran % (Auto) 0.300, Neut % (Auto) 72.4 H, Lymph % (Auto) 20.1, Villalba % (Auto) 6.1, Eos % (Auto) 0.5, Baso % (Auto) 0.6, Absolute Neuts (auto) 8.5 H, Nucleated RBC % 0 05/10/21 18:21: Sodium 134 L, Potassium 4.1, Chloride 100, Carbon Dioxide 27.0, Anion Gap 7, BUN 13, Creatinine 0.93, Est GFR (MDRD) Af Amer 107, Est GFR (MDRD) Non-Af 89, BUN/Creatinine Ratio 13.9, Glucose 120 H, Calcium 9.0 05/11/21 00:25: Sodium 136, Potassium 3.9, Chloride 98, Carbon Dioxide 29.0, Anion Gap 9, BUN 12, Creatinine 0.88, Est GFR (MDRD) Af Amer 114, Est GFR (MDRD) Non-Af 94, BUN/Creatinine Ratio 13.6, Glucose 117 H, Calcium 8.9 05/11/21 00:25: WBC 15.8 H, RBC 5.37, Hgb 16.3, Hct 49.7, MCV 92.6, MCH 30.4, MCHC 32.8, Plt Count 374, MPV 8.4, Immature Gran % (Auto) 0.400, Neut % (Auto) 79.2 H, Lymph % (Auto) 14.1 L, Villalba % (Auto) 5.3, Eos % (Auto) 0.6, Baso % (Auto) 0.4, Absolute Neuts (auto) 12.5 H, Nucleated RBC % 0 05/11/21 05:30: WBC 10.8, RBC 5.23, Hgb 16.2, Hct 47.8, MCV 91.4, MCH 31.0, MCHC 33.9, Plt Count 361, MPV 8.3, Immature Gran % (Auto) 0.500, Neut % (Auto) 69.2, Lymph % (Auto) 21.7, Villalba % (Auto) 7.3, Eos % (Auto) 0.8, Baso % (Auto) 0.5, Absolute Neuts (auto) 7.5, Nucleated RBC % 0 05/11/21 05:30: Sodium 133 L, Potassium 4.2, Chloride 96 L, Carbon Dioxide 30.0, Anion Gap 7, BUN 12, Creatinine 0.84, Est GFR (MDRD) Af Amer 122, Est GFR (MDRD) Non-Af 100, BUN/Creatinine Ratio 14.3, Glucose 112 H, Calcium 8.3 L, Total Bilirubin 0.90, Direct Bilirubin 0.16 05/11/21 05:30: Triglycerides 122, Cholesterol 162, LDL Cholesterol 91, VLDL Cholesterol 24, HDL Cholesterol 47 Rhythm: EKG: Evidence of ST elevation noted initially in the inferior leads and lateral. With ST depression noted in V2 V3. Radiography Diagnostic Testing: Radiology Impression Chest X-Ray 05/10/21 18:27 IMPRESSION: Patchy opacities in the bilateral mid to lower lung zones, due to pneumonia or aspiration. Electronically Signed: Elton Villareal MD at 19:18 EDT Tel , Service support , Physical Exam Narrative Patient alert and orientated x3 hall monitor showed underlying normal sinus rhythm with PACs Cardiac examination; S1-S2 regular, no murmur, no systolic or diastolic murmur, no pericardial rub Chest examination; Clear to auscultation bilaterally Examination abdomen; soft no palpable mass Examination lower extremity no clubbing no cyanosis no extremity edema. Assessment & Plan Assessment/Plan (1) Non-ST elevation CO (NSTEMI): PLAN: Patient 56-year-old patient with illicit drug use presented to the ER with symptoms of chest pain has a elevation of cardiac biomarkers and was transferred to PCU where he had worsening of his symptoms of chest pain with significant change in the EKG with ST elevation in the inferior Seen and evaluated by Dr. Hernandez and we brought him to the Immigration Coordinator for cardiac catheterization showed occlusion of a large proximal left circumflex underwent PCI and stenting of the left circumflex On the angiographic film he had LV dysfunction with dilated cardiomyopathy, eje ction fraction around 35% likely alcoholic cardiomyopathy On review of the angiogram also had a lesion in the diagonal branch which is proximal at least 70%. Recommendation plan; 1. Patient to continue on DAPT/Brilinta/low-dose aspirin for 1 year 2. Advised cessation of alcohol and lifestyle change patient also had illicit drug abuse 3. Problem with compliance as patient is insisting of discharge AGAINST MEDICAL ADVICE 4. To set up as an outpatient for PCI of the sidebranch diagonal and also to start on phase 1 of cardiac rehab. 5. Follow-up with the primary tanyard worker Dr. Luciano pena for continuation of cardiac care plan. 6. All cardiac care plan discussed in detail with the patient, nursing staff and spouse. (2) HTN (hypertension): QUALIFIERS: Hypertension type: unspecified Qualified Code(s): I10 - Essential (primary) hypertension (3) Chest pain, unspecified: QUALIFIERS: Ischemic chest pain type: unstable angina pectoris (4) Illicit drug use: (5) STEMI (ST elevation myocardial infarction):
--- NOTE | 2021-05-11 09:08 | PCM.DC ---
Discharge Instructions Diet Discharge Diet: No restrictions Activity Discharge Activity: Return to Normal Activity Weight Bearing Status: Full weight bearing Follow Up Care Test Results: Test results from this visit will be discussed in further detail at your follow-up appointment, if applicable. Discharge Plan Admission Admit Date/Time: 05/10/21 20:03 Primary Reason for Your Visit: acute LA Attending Provider: Donnie Yu Primary Care Provider: Tosha Russell NP Consulting Providers: David Hernandez Instructions Patient Instructions: ED Chest Pain, Noncardiac Discharge Orders/Prescriptions Prescriptions: No Action NK RF: 0 Referrals / Follow Up: Tosha Russell NP, EMPLOYMENT SERVICE SPECIALIST-C [Primary Care Provider] - Disposition Disposition (needs filled in before D/C Order can be placed): Against Medical Advice
--- NOTE | 2021-05-11 09:14 | CRPHASE1 ---
Patient Communication PHII Cardiac Rehab Discussed with Patient:: Yes Guide to Cardiac Rehab Given to Patient:: Yes Cardiac Rehab Facility Choice List Given to Patient:: Yes Choice Program [facility] PHII:: Communication Given to CR Information Technology Auditor:: Ghada Lynch Phase II Cardiac Rehab:: Yes Sessions:: 36 sessions - 3 days/wk, 12 weeks Cardiac Rehabilitation Info Cardiac Rehabilitation Program Information: Cardiac Rehabilitation is important for patients like you who are recovering from a heart problem. Cardiac rehabilitation programs are recognized as integral to the continued care of the patient with coronary heart disease. The cardiac rehabilitation program is designed to optimize a patient's physical, psychological, and social functioning. Health rn transitional care work in cardiac rehabilitation programs and assist you with getting the treatments you need to get stronger and healthier - like exercise, healthy eating habits, and medications. Cardiac rehabilitation has been show to help people with heart problems live longer and have better life enjoyment than people who do not go to cardiac rehabilitation. Please contact the Cardiac Rehabilitation Program at [facility] at in two weeks if you have not heard from them.
--- NOTE | 2021-05-11 09:14 | CRPH1.INSTRU ---
General Education CAD and cardiac anatomy and function:: Patient communicates acknowledgment, Family communicates acknowledgment Explanation of diagnoses and procedures:: Patient communicates acknowledgment, Family communicates acknowledgment Sign/Symptoms of UT:: Patient communicates acknowledgment, Family communicates acknowledgment Antiplatelet therapy: Patient communicates acknowledgment, Family communicates acknowledgment Smoking Patient Nicotine/Smoking Risk Factors Are:: Cigarettes, Illicit drug use Recommendations Include:: Smoking cessation strategies/Smoking packet, Participation in a smoking cessation program, Previous smoker; encourage continued cessation Nicotine/Smoking Response Code:: Patient communicates acknowledgment, Family communicates acknowledgment Dyslipidemia Patient Dyslipidemia Risk Factors Are:: Total Cholesterol, Triglycerides, HDL, LDL Recommendations Include:: Lipid profile provided, Reviewed NCEP/ATP guidelines, Therapeutic Lifestyle Change dietary guidelines Dyslipidemia Response Code:: Patient communicates acknowledgment, Family communicates acknowledgment Overweight/Obesity Patient Overweight/Obesity Risk Factors Are:: Obesity - > or = 30 Recommendations Include:: Weight loss of 5-10%, Reduced calorie diet, Exercise 5-7 times/week Overweight/Obesity:: Patient communicates acknowledgment, Family communicates acknowledgment Hypertension Recommendations Include:: Maintain BP <130/85, DASH dietary guidelines, Decrease/maintain normal body weight, Moderation of ETOH Hypertension:: Patient communicates acknowledgment Diabetes Patient Diabetes Risk Factors Are:: No documented hx of diabetes Metabolic Syndrome Patient Metabolic Syndrome Risk Factors Are [3 of 5]:: Fasting blood sugar > 100 mg/dL, Waist circumference > 35 [female] or 40 [male], Hypertension Recommendations Include:: Reinforce compliance to risk factor modifications, Encouraged follow-up with Primary Care Physician Metabolic Syndrome Response Code:: Patient communicates acknowledgment, Family communicates acknowledgment Sedentary Patient Sedentary Risk Factors Are:: Lack of regular exercise Recommendations Include:: Aerobic exercise 5-7 times/week for 20-30 minutes continuously, Benefits of regular exercise, Discussed home walking program, Monitored Outpatient Cardiac Rehab Sedentary Response Code:: Patient communicates acknowledgment, Family communicates acknowledgment Stress Patient Stress Risk Factors Are:: Patient denies stress as a risk factor
--- NOTE | 2021-05-11 09:15 | NURSING ---
Addendum entered by Alka Solomon 05/11/21 10:26: 0845: Patient refused echo as well Original Note: 05/11/21 0830: Patient and Dr. Lynch spoke about leaving AMA. Patient agreed to stay only if allowed to smoke a cigarette. 0845: This RN spoke to patient and informed him that he is not permitted to smoke on hospital grounds, he would need to sign out AMA if he wants to do that. Patient stated to this RN get this shit off me I am leaving. This RN offered patient a nicotine patch, patient refused. Dr. Yu, Dr. Hernandez both notified of patient leaving AMA. Patient refused to wait for prescriptions to be filled before he leaves, stating I'll wait if I can go smoke. This RN stated that is not possible, he will have to pick them up once they are filled. This RN informed patient it is in his best interest to hop picker the medications and take as prescribed to prevent further heart attacks and reclosure of stented artery. Patient signed AMA forms. 0850: Dr. Yu at bedside to also confirm patient still wants to leave AMA and understand his risks of doing so. Patient still wants to leave. Patient then escorted out by security.
--- NOTE | 2021-05-16 07:35 | DS.PCM_ITS ---
Providers Date of Admission: 05/10/21 Date of Discharge: 05/11/21 Primary Care Physician: ELVIRA Allen Consultations 05/10/21 20:43 Consult: Cardiology Routine Consulting Provider: David Hernandez Reason for Consult: Chest pain EMERGENT Consult: No MD Notified: Yes Date Notified: 05/10/21 Time Notified: 19:58 Method of Notification: Provider Initiated Reason For Visit: NSTEMI Diagnosis Discharge Diagnosis (1) Non-ST elevation [place] (NSTEMI): Status: Acute Code(s): I21.4 - Non-ST elevation (NSTEMI) myocardial infarction (2) HTN (hypertension): Status: Chronic Code(s): I10 - Essential (primary) hypertension Qualifiers: Hypertension type: unspecified Qualified Code(s): I10 - Essential (primary) hypertension (3) Chest pain, unspecified: Status: Acute Code(s): R07.9 - Chest pain, unspecified Qualifiers: Ischemic chest pain type: unstable angina pectoris (4) Illicit drug use: Status: Chronic Code(s): F19.90 - Other psychoactive substance use, unspecified, uncomplicated (5) STEMI (ST elevation myocardial infarction): Status: Acute Code(s): I21.3 - ST elevation (STEMI) myocardial infarction of unspecified site Plan: 1. Acute STEMI #2 occlusive coronary artery disease proximal LAD left circumflex, mid LAD sidebranch #3 nonocclusive coronary artery disease right coronary artery, mid LAD #4 illicit drug use (methamphetamines) #5 noncompliance with medical regimen #6 unspecified personality disorder #7 ischemic cardiomyopathy #8 probable alcohol abuse #9 essential hypertension Medications at Discharge Home Medications NK 05/10/21 Hospital Course Operations None Procedures Cardiac catheterization (With placement of drug-eluting stent in LAD left circumflex artery) Summary of Care Provided Minutes Spent on Discharge: 31 Hospital Course: This 56-year-old white male presented to the emergency room at [facility] with a chief complaint of chest pain, work-up in the emergency room included labs which showed a slightly elevated white blood cell count at 11.7, patient's troponin was elevated at 5677, patient's EKG did not sh ow an acute injury pattern. Patient's chest x-ray showed patchy opacities in the bilateral mid to lower lung zones. The case was discussed with cardiology, patient was admitted to PCU, however patient had recurrence of his chest discomfort and a follow-up EKG demonstrated changes concerning for an evolving acute inferior lateral STEMI, STEMI alert was initiated and the patient went to cardiac [employer] where he was noted to have occlusive coronary artery disease in the circumflex coronary artery along with occlusive disease in the mid LAD sidebranch which was not felt to be a culprit lesion. Patient underwent insertion of a SRINATH in the circumflex artery, he was then admitted to ICU, the following morning, patient became belligerent and demanded to be allowed to smoke outside, when he was told he could not, he decided to sign out AGAINST MEDICAL ADVICE. Patient knew that it was hazardous to do this and I talked with him myself and confirmed that that was his intention. Patient's significant other was in the room with him at the time he made the decision. On 05/11/2021, patient was seen and examined: On examination he appeared in no distress. Vital signs as documented. Skin warm and dry and without overt rashes. Neck without JVD, neck was supple, trachea midline, thyroid was normal. Lungs clear bilaterally, normal air movement was noted. Heart exam notable for regular rhythm, normal sounds and absence of murmurs, rubs or gallops. Abdomen unremarkable and without evidence of organomegaly, masses, or abdominal aortic enlargement. Bowel sounds are present, abdomen is not distended. Extremities nonedematous, no cyanosis was noted, no clubbing was noted. Neuro: Cranial ner ves II through XII are grossly intact, no focal motor deficits were noted, sensation to light touch and pinprick intact, motor exam 5/5 throughout. Psych: Patient is alert and oriented x3, patient appears angry Patient's prescriptions were phoned into [employer] in [facility], the following prescriptions were phoned in: Aspirin 81 mg 1 daily, Brilinta 90 mg 1 twice a day, Lipitor 80 mg 1 daily, lisinopril 10 mg daily, and metoprolol succinate 50 mg daily Additionally, I called the patient's PCP and talked to his nurse practitioner (Tosha Russell) about the patient's hospitalization and the fact that he checked out AMA. Weight / BMI Weight Weight: 108.3 kg Body Mass Index (BMI) 36.5 ABG / Lab / Microbiology Data Result Diagrams: 05/11/21 05:30 05/11/21 05:30 Microbiology: Microbiology 05/10/21 19:25 Mucosa - Nose SARS-CoV-2 Antigen (Rapid) - Final D/C Instructions Discharge Diet: No restrictions Weight Bearing Status: Full weight bearing Meaningful Use Info Meaningful Use Diagnoses (Choose all that apply): AMI AMI/Post PCI/Angioplasty Aspirin given w/in 24hrs of arrival?: Yes ASA at discharge?: Yes Antiplatelet Therapy at Discharge:: Yes Statins at discharge?: Yes Mati/ARB at discharge?: Yes Beta Trini at discharge?: Yes Done w/ Acute OH measure.: Yes Documented LVEF (%): 35 Discharge Plan Admission Admit Date/Time: 05/10/21 20:03 Primary Reason for Your Visit: acute OH Attending Provider: Donnie Yu Primary Care Provider: Tosha Russell NP Consulting Providers: David Hernandez Instructions Patient Instructions: ED Chest Pain, Noncardiac Discharge Orders/Prescriptions Prescriptions: No Action NK RF: 0 Referrals / Follow Up: Tosha Russell NP, [employer]INE [employer]AD[facility] [Primary Care Provider] - Disposition Disposition (needs filled in before D/C Order can be placed): Against Medical Advice Charges/Coding Visit Charges Inpatient E&M: [id number] Disch Hosp
== END 2021-05-11 08:58 | disposition left against medical advice (07) | DRG 174 ==
LOC: ED 19:37 → PCU 20:52 → ICU 05-11 04:14
PROVIDERS: Internal Medicine Cardiovascular Disease; Internal Medicine Interventional Cardiology; Nurse Practitioner Family; Admitting Provider Hospitalist; Emergency Provider Emergency Medicine; PCP Nurse Practitioner Adult Health; Visit Provider Internal Medicine
DX: I21.19 ST elevation (STEMI) myocardial infarction involving other coronary artery of inferior wall (principal); I10 Essential (primary) hypertension; I25.5 Ischemic cardiomyopathy; F17.210 Nicotine dependence, cigarettes, uncomplicated; Z91.19 Patient's noncompliance with other medical treatment and regimen; F10.20 Alcohol dependence, uncomplicated; F15.10 Other stimulant abuse, uncomplicated; I25.10 Atherosclerotic heart disease of native coronary artery without angina pectoris
CPT/HCPCS: 36415; 71045; 80048; 80053; 80061; 80076; 84145; 84484; 85025; 87426; 92941; 93005; 93458; 99152; 99153; 99251; 99285; C1874; J7030; Q9967; A4216; C1725; C1769; C1887; C1894; C9606; G0463; J1327; J1940; J2405

== ENCOUNTER 2021-05-12 13:41 | Observation (INO) | payer MEDICAID, SELFPAY ==
[2021-05-10 20:44] VITALS: BMI 36.5
[2021-05-12] VITALS (23 sets, daily range): BP systolic 70–130; BP diastolic 52–109; PULSE 78–99; RESP 8–24; TEMP 36.6–36.7; O2SAT 92–100; BMI 32.5
--- NOTE | 2021-05-12 13:43 | ED.VIS.CHEST ---
HPI History of Present Illness Chief Complaint: Chest Pain Informant: patient and EMS Onset/Context/Timing Onset: Today (Onset of pain 0500) Activity at onset: sudden and rest Timing: Continuous Quality: Positive for Aching and Pressure Location: Substernal Current Severity: 10 Maximum Severity: 10/10 Worsened By: Exertion Relieved By: Nothing Associated Symptoms: Positive for Nausea, Diaphoresis and Dyspnea Narrative Narrative: Patient is a middle-age male who was seen last week for ST elevation IN involving the circumflex vessel. He reports chest pain started 0500. He had associated symptoms. Squad noted he was in V. tach. They administered Versed and cardioverted him with 100 J. Patient repeat EKG reveals ST elevation inferior leads with depression V2 consistent with a circumflex lesion and concerned he may have occluded his stent. He apparently is not always compliant with his meds. Prior Similar Symptoms: Yes and With Prior IN Recent Illness/Hospitalization: Yes CVD Risk Factors: Positive for Hypertension, Hypercholesterolemia and Smoking; Negative for Diabetes PE Risk Factors: Negative for Recent Travel/Surgery, Recent Immobilization and Prior DVT or PE TAD Risk Factors: Positive for Hypertension; Negative for Marfan's Syndrome and Family History [facility] Medical History Alcohol abuse Chronic pain Illicit drug use Smoker Substance abuse Home Medications NK 05/10/21 [History Last Taken Unknown] Allergy/AdvReac Type Severity Reaction Status Date / Time No Known Allergies Allergy Verified 05/10/21 18:04 Family History Father COPD (chronic obstructive pulmonary disease) Mother Heart disease Hypertension Social History (Updated 05/12/21 @ 13:[address] Morro Marrufo MD) household members: none Smoking Status: Heavy Smoker (>10/day) alcohol intake: current alcohol intake frequency: 3 or more drinks per day Alcohol type: beer details: 12 pack/day- beer substance use type: methamphetamine ROS ROS ED Constitutional Constitutional ED: Denies chills, fever(s), subjective or sweats Eyes Eyes: Denies none, blurry vision or change in vision ENT ENT ED: Denies ear pain or rhinorrhea Cardiovascular Cardiovascular: Denies as per HPI, chest pain, orthopnea or palpitations Respiratory/Chest Respiratory/Chest: Denies cough, dyspnea or orthopnea Gastrointestinal Gastrointestinal: Denies abdominal pain, nausea or vomiting Genitourinary Genitourinary ED: Denies dysuria, hematuria or urinary frequency Musculoskeletal Musculoskeletal: Denies arthralgias, back pain, myalgias or neck pain Integumentary Denies Abrasions or rash Neurologic Neurologic: Denies paresthesias or weakness Hematologic/Lymphatic Hematologic/Lymphatic: Denies easy bleeding or easy bruising EXAM Physical Exam Const Positive well nourished, well developed and obese General Appearance ED: well developed Nutritional Appearance: obese HEENT Reports moist mucous membranes normocephalic Eyes PERRL and EOMs intact bilaterally General Eye ED: Negative for pale conjunctiva or scleral icterus Neck no lymphadenopathy, supple and no JVD Resp normal respiratory effort Effort and Inspection: respiratory distress Cardio regular rate, regular rhythm, S1 normal heart sound and S2 normal heart sound GI normal to inspection, nondistended, normoactive bowel sounds and soft to palpation Back/Spine no CVA tenderness Extremity normal to inspection General Extremety ED: Negative for edema or tenderness General Extremity: Negative for edema Neuro oriented x3, CN's II-XII intact bilaterally and no sensory deficits noted Sensorium / Orientation: awake and alert Psych mental status grossly normal Mood & Affect: depressed Skin no rashes or lesions noted and no wounds Heart Score History: Highly Suspicious ECG: Significant ST-Depression Age: >45 - <65 years Risk Factors: >/= 3 Risk Factors or History of CAD Score: 7 MDM MDM MDM Narrative Medical decision making narrative: First KG there was transmitted field a wide-complex tachycardia suspicious for V. tach. Patient was cardioverted. Repeat EKG reveals concern for circumflex lesion with depression in V2 and ST elevation in lead II, III and aVF. Patient received aspirin 3 hospital Brilinta and heparin. Uncertain how much heparin received C because the IV infused. The field associate was in the ER when patient arrived. He was taken to the County Court Judge. Lab Data Lab results narrative: Labs to be ordered by cardiology Critical Care Time Critical care time (excluding procedures): 30-74 minutes (5 minutes), Including time spent: (History, physical, documentation, review of prehospital EKGs x2), Discussing w/Patient &/or Family/Photo Graphics Librarian, Discussing w/Consultants and Arranging Admission or Transfer Discharge Plan Dx/Rx/DC Orders Clinical Impression: STEMI (ST elevation myocardial infarction) Disposition Disposition: Acute Care Hospital [facility]
--- NOTE | 2021-05-12 13:44 | ED.RN ---
EMS REPORTS UPON ARRIVAL PT WAS IN V-TACH, PT WAS CARDIOVERTED ON SCENE, STEMI SHOWED ON ECG AFTERWARD IN LATERAL LEAD.
--- NOTE | 2021-05-12 13:52 | CM.ED ---
SOCIAL WORK Responded to STEMI alert. Patient taken straight to Policeman. No family present at this time. Will remain available for needs. Doug Hess, CNA PER DIEM, SIEVE MAKER
--- NOTE | 2021-05-12 15:32 | PCIREPORT_ITS ---
PCI Cardiac Cath Report PCI Report: Procedure performed; 1. Left heart catheterization 2. IVUS of the left circumflex 3. PTCA of left circumflex stent using 3.5 x 15 mm, followed by 4 x 20 mm emerge NC balloon. 4. Placement of Perclose to close the right common femoral artery arteriotomy site 5. Placement of TR band to maintain hemostasis of the right radial artery 6. Moderate sedation. Consent; Risk and benefits procedure explained in detail to the patient elected to proceed informed consent obtained. Preprocedure diagnosis; This patient is a 56-year-old, discharged yesterday from [facility] AGAINST MEDICAL ADVICE, patient has STEMI yesterday with occluded proximal circumflex next underwent PCI and stent using drug-eluting stent/Orsiro. According to spouse patient had a fall in the kitchen and she called EMS Has episode of V. tach shocked 1 time and brought into the hospital. Access; 1. Right radial artery approach 2. Right common femoral artery approach. Interventional equipments and catheters; 1. 6 Ghanaian 3.5 EBU guide 2. Run-through wire 3. 5 Ghanaian JR4 diagnostic catheter 4. 0.014 run-through 180 cm wire 5. 3.5 x 15 mm NC emerge balloon 6. 4 x 15 mm NC balloon Procedure in detail; Patient brought as an emergency to the Net Software Architect using 6 Ghanaian 3.5 EBU guide cannulated the left main without difficulty, angiographic view of the left colostomy obtained catheter exchanged for JR4 angiographic view of the right coronary artery. Patency of the left circumflex stent noted, patient had no symptoms of chest pain and remained stable with no evidence of V. tach or ST elevation on the air sampling and monitoring His blood pressure on the lower side he was given bolus of IV fluid which improved the blood pressure and started on a low-dose Levophed Patient was given heparin as well he was given 2 boluses of Integrilin and Integrilin infusion From the history according to the spouse she did not recall that the patient was taken his Brilinta this morning. We will proceed with intravascular ultrasound to the left circumflex stent noted patency of the stent with no evidence of dissection proximally or distally, then will proceed with the balloon dilatation using 3.5 followed by 4.0 x 20 mm emerge NC balloon. Perclose used to close the right common femoral artery arteriotomy site and TR band used to maintain hemostasis of the right radial artery. Patient was given Brilinta 180 mg as well as aspirin Conclusion recommendation; This patient has episode of V. tach, patency of the stent was noted He was started on Integrilin infusion and advised to stay over the night to monitor the medication Also please note this patient has cardiomyopathy with EF in the range of around 35 which is disproportionate to his coronary anatomy. Likely alcoholic cardiomyopathy as he consume alcohol and illicit substance abuse 1. Dual antiplatelet therapy with Brilinta/aspirin for 1 year 2. Patient has episode of V. tach and would recommend to maintain in-hospital monitoring and will need LifeVest prior to discharge 3. Medical therapy in the form of high-dose statin, beta-zakia carvedilol and MARY inhibitor. Ghada Lynch MD,FACC,[facility] etcher machine
--- NOTE | 2021-05-12 15:45 | EKG12_ITS ---
Test Reason : RIGHT-SIDED EKG Blood Pressure : / mmHG Vent. Rate : 093 BPM Atrial Rate : 093 BPM P-R Int : 150 ms QRS Dur : 118 ms QT Int : 404 ms P-R-T Axes : 061 048 -32 degrees QTc Int : 502 ms Sinus rhythm with Premature atrial complexes Low voltage QRS Lateral infarct , age undetermined Inferior-posterior infarct , age undetermined Prolonged QT Abnormal ECG Confirmed by JARAD ROBISON, JOSE ([id number]), deputy editor in chief CRULY GRIMES ([id number]) on 05/13/2021 12:46:59 PM Referred By: Ghada Lynch Confirmed By:JOSE ABRAHAM MD
--- NOTE | 2021-05-12 16:37 | CHAPLAIN ---
Type of Pastoral Visit ___ Initial Visit ___ Follow-up Visit ___ On-call Visit ___ General Patient Visit ___ Spiritual Assessment ___ Family Conference ___ Bereavement _x__ Rapid Response ___ Code Blue ___ Other (describe below) Pastoral Care Referral From ___ Patient ___ Family ___ Nurse ___ Physician ___ Prime Minister ___ Air Pumper _x__ Other (describe below) Sacrament/Intervention ___ Active listening ___ Anointing ___ Sabianism ___ Bereavement ___ Communion ___ Shilpa exploration ___ ___ Life review ___ Prayer ___ Reconciliation ___ Sacrament of Sick ___ Supportive presence ___ Wedding _x__ Other (describe below) Pastoral Comments responded to the stemi alert; patient was taken to Doll Repairer; family was not present at the time; SW was on the unit to follow up
[2021-05-12] MEDS: 0.9% Normal Saline 1,000 ML 75 ML IV (16:40)
--- NOTE | 2021-05-12 16:47 | CRPHASE1 ---
Patient Communication PHII Cardiac Rehab Discussed with Patient:: Yes Guide to Cardiac Rehab Given to Patient:: Yes Cardiac Rehab Facility Choice List Given to Patient:: Yes Choice Program [facility] CR PHII:: Communication Given to CR Choice Program Other:: Communication Given to CR [facility]:: Ghada Lynch Phase II Cardiac Rehab:: Yes Sessions:: 36 sessions - 3 days/wk, 12 weeks - PT RETURN FOR ANGIOPLASTY- IN STENT RESTENOSIS Cardiac Rehabilitation Info Cardiac Rehabilitation Program Information: Cardiac Rehabilitation is important for patients like you who are recovering from a heart problem. Cardiac rehabilitation programs are recognized as integral to the continued care of the patient with coronary heart disease. The cardiac rehabilitation program is designed to optimize a patient's physical, psychological, and social functioning. Health rn progressive care unit work in cardiac rehabilitation programs and assist you with getting the treatments you need to get stronger and healthier - like exercise, healthy eating habits, and medications. Cardiac rehabilitation has been show to help people with heart problems live longer and have better life enjoyment than people who do not go to cardiac rehabilitation. Please contact the Cardiac Rehabilitation Program at [facility] at in two weeks if you have not heard from them.
--- NOTE | 2021-05-12 16:47 | CRPH1.INSTRU ---
General Education CAD and cardiac anatomy and function:: Patient communicates acknowledgment Explanation of diagnoses and procedures:: Patient communicates acknowledgment Sign/Symptoms of W[place]:: Patient communicates acknowledgment Antiplatelet therapy: Patient communicates acknowledgment Smoking Patient Nicotine/Smoking Risk Factors Are:: Cigarettes Recommendations Include:: Smoking cessation strategies/Smoking packet, Participation in a smoking cessation program, Previous smoker; encourage continued cessation Nicotine/Smoking Response Code:: Patient communicates acknowledgment Dyslipidemia Patient Dyslipidemia Risk Factors Are:: Total Cholesterol, Triglycerides, HDL, LDL Recommendations Include:: Lipid profile not available, Reviewed NCEP/ATP guidelines, Therapeutic Lifestyle Change dietary guidelines Dyslipidemia Response Code:: Patient communicates acknowledgment Overweight/Obesity Patient Overweight/Obesity Risk Factors Are:: Obesity - > or = 30 Recommendations Include:: Weight loss of 5-10%, Reduced calorie diet, Exercise 5-7 times/week Overweight/Obesity:: Patient communicates acknowledgment Hypertension Recommendations Include:: DASH dietary guidelines, Decrease/maintain normal body weight, Moderation of ETOH Hypertension:: Patient communicates acknowledgment Heart Disease Patient Heart Disease Risk Factors Are:: Previous cardiac event Heart Disease Response Code:: Patient communicates acknowledgment Diabetes Patient Diabetes Risk Factors Are:: No documented hx of diabetes Metabolic Syndrome Patient Metabolic Syndrome Risk Factors Are [3 of 5]:: Fasting blood sugar > 100 mg/dL, Waist circumference > 35 [female] or 40 [male], Hypertension Recommendations Include:: Encouraged follow-up with Primary Care Physician Metabolic Syndrome Response Code:: Patient communicates acknowledgment Sedentary Patient Sedentary Risk Factors Are:: Lack of regular exercise Recommendations Include:: Aerobic exercise 5-7 times/week for 20-30 minutes continuously, Benefits of regular exercise, Discussed home walking program, Monitored Outpatient Cardiac Rehab Sedentary Response Code:: Patient communicates acknowledgment Stress Patient Stress Risk Factors Are:: Patient denies stress as a risk factor
--- NOTE | 2021-05-12 19:09 | PCM.HP.STD ---
HPI - General General Date of Admission: 05/12/21 HPI Narrative KOURTNEY ELIZABETH, is a 56 M who presented to [facility] on 05/12/2021 complaining of chest pain. He was admitted on 05/10/2021 and had a cardiac stent placed in his circumflex. Today he reports that his chest pain started approximately 5 AM and when the squad arrived he was in V. tach. He was cardioverted with 100 J and a repeat EKG showed ST elevation in the inferior leads with depression in V2 and there was concern that he may have occluded his stent. It appears that he was not compliant with his medications upon discharge. Of note he threatened to leave AGAINST MEDICAL ADVICE multiple times during his initial admission. He was taken emergently to the [facility] during this admission and his circumflex stent was completely patent. He is EF via LV gram was 35%. Per discussion with Dr. Canela they will discharge him with a LifeVest and reevaluate him for an ICD after he has been on appropriate goal-directed therapy. When I attempted the take the history the patient would not interact much and just told me he was feeling like shit and wanted to go home. He was admitted to the ICU for further evaluation. [facility] Medical History Alcohol abuse Chronic pain Illicit drug use Smoker Substance abuse Home Medications NK 05/10/21 [History Last Taken Unknown] Allergy/AdvReac Type Severity Reaction Status Date / Time No Known Allergies Allergy Verified 05/10/21 18:04 Family History Father COPD (chronic obstructive pulmonary disease) Mother Heart disease Hypertension Social History household members: none Smoking Status: Heavy Smoker (>10/day) alcohol intake: current alcohol intake frequency: 3 or more drinks per day Alcohol type: beer details: 12 pack/day- beer substance use type: methamphetamine ROS Review of Systems ROS Unobtainable: other Details: Patient uncooperative Vital Signs Vital Signs Vital Signs: 05/12/21 13:42 05/12/21 15:40 05/12/21 15:45 Temperature 98.0 F Temperature Source Temporal Pulse Rate 97 Respiratory Rate 24 H Respiratory Effort Blood Pressure 114/91 H Blood Pressure Mean 98 Blood Pressure Source Monitor Blood Pressure Position Semi-Fowlers Blood Pressure Location Left Arm Pulse Ox 95 Oxygen Delivery Method Nasal Cannula Nasal Cannula Oxygen Flow Rate (L/min) 2 4 05/12/21 16:00 05/12/21 16:15 05/12/21 16:30 Temperature Temperature Source Pulse Rate 92 90 88 Respiratory Rate 8 L 17 Respiratory Effort Blood Pressure 130/109 H 109/74 98/71 Blood Pressure Mean 116 85 80 Blood Pressure Source Monitor Monitor Monitor Blood Pressure Position Semi-Fowlers Semi-Fowlers Semi-Fowlers Blood Pressure Location Left Arm Left Arm Left Arm Pulse Ox 96 99 100 Oxygen Delivery Method Nasal Cannula Nasal Cannula Nasal Cannula Oxygen Flow Rate (L/min) 4 4 4 05/12/21 16:45 05/12/21 17:00 05/12/21 17:15 Temperature Temperature Source Pulse Rate 88 Respiratory Rate Respiratory Effort Blood Pressure 97/60 Blood Pressure Mean 72 Blood Pressure Source Monitor Monitor Monitor Blood Pressure Position Semi-Fowlers Semi-Fowlers Semi-Fowlers Blood Pressure Location Left Arm Left Arm Left Arm Pulse Ox 99 Oxygen Delivery Method Nasal Cannula Nasal Cannula Nasal Cannula Oxygen Flow Rate (L/min) 4 4 4 05/12/21 17:30 05/12/21 18:00 Temperature Temperature Source Pulse Rate 85 78 Respiratory Rate 17 Respiratory Effort Normal Blood Pressure 95/64 Blood Pressure Mean 74 Blood Pressure Source Monitor Blood Pressure Position Semi-Fowlers Blood Pressure Location Left Arm Pulse Ox 100 96 Oxygen Delivery Method Nasal Cannula Nasal Cannula Oxygen Flow Rate (L/min) 4 4 Weight Weight: 108.86 kg Body Mass Index (BMI) 32.5 Physical Exam Const alert, oriented x3 and well nourished Constitutional Narrative: Obese white male who appears older than stated age, lying in bed, appears comfortable, nontoxic General Appearance: cooperative HEENT normocephalic, head/scalp atraumatic, hearing grossly normal bilaterally and oropharynx normal HEENT Narrative: Moist mucous membranes, Mallampati 3 Eyes PERRL and EOMs intact bilaterally Neck supple Neck Narrative: Trachea midline Resp normal respiratory effort, no retractions and no use of accessory muscles Resp Narrative: Diffusely diminished but clear Cardio regular rate, regular rhythm, S1 normal heart sound, S2 normal heart sound, no murmurs, no rub, no gallops, no clicks and no JVD GI normal to inspection, nondistended, normoactive bowel sounds, soft to palpation, non-tender and non-distended Extremity normal to inspection and no clubbing, cyanosis or edema Peripheral Pulses: Yes pulses 2+ throughout Skin no rashes or lesions noted, no wounds, skin turgor normal, no jaundice, no petechiae and no mottling Skin Narrative: Compression device remains on right forearm status post cath Neuro oriented x3, CN's II-XII intact bilaterally and moves all extremities Sensorium / Orientation: awake and alert Speech: speech normal Psych Psych Narrative: Agitated Assessment & Plan Assessment/Plan (1) Chest pain, unspecified: QUALIFIERS: Ischemic chest pain type: unstable angina pectoris (2) Ventricular tachycardia: (3) CAD (coronary artery disease): (4) Illicit drug use: PLAN: Assessment: Ventricular tachycardia HFrEF-compensated -EF 35% CAD status post circumflex stent 05/10/2021 Illicit drug use Tobacco abuse Plan: -Patient was taken to the [facility]--> circumflex stent patent--> with EF depression plan is for LifeVest at baseline and treatment with goal-directed therapy--> reevaluate EF in 6 weeks as an outpatient--> ICD placement if EF still depressed despite goal-directed therapy -Continue Brilinta and aspirin -Recommend discontinuation of illicit substances -Recommend tobacco cessation -Enoxaparin for DVT prophylaxis -Patient high risk for leaving AMA Charges/Coding Visit Charges Inpatient E&M: 05035 Init Hosp L2
[2021-05-12 20:45] LABS: Absolute Lymphocyte Count 2.84 X10^3/uL (0.83-4.51); Absolute Neutrophil Count 7.2 X10^3/uL (2.0-7.7); Basophil# 0.06 X10^3/uL; Basophil% 0.5 % (0-1); Eosinophil# 0.06 X10^3/uL; Eosinophils% 0.5 % (0-5); Hematocrit 42.6 % (40-54); Hemoglobin 14.2 g/dL (13.0-16.5); Lymphocyte # 2.84 X10^3/ul (0.83-4.51); Lymphocyte % 25.2 % (19-41); Mean Corp Hgb Conc 33.3 g/dL (32-36); Mean Corpuscular Hgb 30.9 pg (27.0-32.0); Mean Corpuscular Volume 92.6 fL (80-94); Mean Platelet Vol. 8.5 fl (6.2-12.0); Monocyte# 0.99 X10^3/uL; Monocyte% 8.8 % (0-10); NRBC Flagged by Analyzer 0 % (0-5); Neutrophil # 7.24 X10^3/uL (2.7-7.7); Neutrophil % 64.4 % (47-70); Platelet Count 307 K/mm3 (150-450); RBC Distribution Width CV 13.8 % (11.6-14.6); RBC Distribution Width SD 46.6 fl (35.1-43.9); White Blood Count 11.3 K/mm3 (4.4-11.0)
--- NOTE | 2021-05-12 20:47 | CT_ITS ---
STUDY: CT CHEST, ABDOMEN T PELVIS WITH CONTRAST REASON FOR EXAM: Male, 56 years old. Condition change RADIATION DOSAGE (If Supplied By Facility): CTDIvol = ( 26.57 ) mGy, DLP = ( 2546.82 ) mGycm TECHNIQUE: Transaxial imaging was performed following intravenous administration of IV 100mL Isovue-370. Multiplanar coronal and sagittal images were reformatted. Individualized dose optimization techniques were used for this CT. COMPARISON: Portable chest exam of 05/10/2021 FINDINGS: CHEST Mild generalized posterior atelectatic changes. Otherwise negative for major consolidation. Interstitial opacities are mildly increased. 5 mm noncalcified nodule of the lingula, image 87 series 2. Negative for pleural effusion. Normal heart and pericardium. Primarily left-sided coronary calcifications. Shotty middle mediastinal and aortopulmonary window lymph nodes. Bilateral shotty hilar lymph nodes which are larger in the inferior right hilum. Negative for pulmonary embolus. Mild calcific plaque and elongation of the thoracic aorta without aneurysm or dissection. There are multi-level degenerative changes of the thoracic spine. ABDOMEN AND PELVIS Normal liver. Normal gallbladder and extrahepatic biliary system. Normal spleen. Normal pancreas. Normal bilateral adrenal glands. Normal right kidney. Normal left kidney. Normal visualized stomach. Normal small intestine. Normal colon. The appendix is visualized and appears normal. Mild calcific plaque of the aorta without aneurysm. Normal inferior vena cava. Normal retroperitoneum. Normal abdominal wall. There are diffuse degenerative changes of the visualized lumbar spine. Normal urinary bladder. There is no pelvic fluid. There is no pelvic lymphadenopathy or mass lesion. There is diffuse atherosclerotic calcification of the pelvic arteries. Normal abdominal wall. No acute bone findings concerning the sacrum, pelvis or hips. Degenerative changes of the hips and sacroiliac joints. CT/CT Chest, Abd, Pel w/Contrast IMPRESSION: Generalized posterior atelectatic changes otherwise negative for consolidation, pleural effusion or other infiltrates. 5 mm noncalcified nodule in the lingula. Nodules of this size require no specific follow-up imaging in a low risk patient. 6-12 months follow-up in a high risk patient. Normal heart size without pericardial effusion. Left-sided coronary calcifications. Negative for pulmonary embolus. Mild atherosclerotic changes without aneurysm. No acute bowel related findings. Negative for obstruction, perforation or inflammatory bowel changes. A normal appendix is identified. No acute renal findings. Negative for hydronephrosis, renal or ureteral stones. Nondistended unremarkable urinary bladder. Unremarkable liver, spleen and pancreas within the nondistended gallbladder. Atherosclerotic changes are mild without aneurysm. Electronically Signed: Jazmín Lawson MD at 22:22 EDT , Service support ,
--- NOTE | 2021-05-12 20:53 | ECHOL_ITS ---
Reason For Study: S/P STEMI Procedure This was a limited 2D transthoracic echocardiogram. The study was technically limited. Exam performed portable in ICU/CCU. Left Ventricle Mildly dilated left ventricle. The 3D full volume ejection fraction is EF 35%-40% %. Right Ventricle Mildly dilated right ventricle. Mild global right ventricular systolic dysfunction. Atria The left atrium is mildly enlarged. Normal right atrium. Mitral Valve The mitral valve is structurally normal. No prolapse or stenosis seen. Trivial mitral valve insufficiency. Tricuspid Valve Normal tricuspid valve. Mild (1+) eccentric tricuspid valve insufficiency. Aortic Valve Normal aortic valve. Pulmonic Valve The pulmonic valve is not well visualized. Great Vessels Normal aortic root. Pericardium/Pleural Trivial pericardial effusion. MMode/2D Measurements & Calculations LVIDd: 5.3 cm IVSd: 0.98 cm LVIDs: 4.5 cm LVPWd: 1.0 cm FS: 14.2 % Doppler Measurements & Calculations TR max nash: 398.7 cm/sec TR max P.6 mmHg ECHO/Echo, Limited Study Interpretation Summary The 3D full volume ejection fraction is EF 35%-40% %. Inferolateral Hypokinesia Mild RV dilatation withmild RV systolic function Mild TR Trivial MR Trivial pericardial effusion Ordering Physician: Ghada Lynch Referring Physician: DAVID ROBERTSON Performed By: Amber Sandoval, RDCS, RVT
[2021-05-12 22:45] LABS: Absolute Neutrophil Count 9.1 X10^3/uL (2.0-7.7); Basophil# 0.07 X10^3/uL; Basophil% 0.5 % (0-1); Eosinophil# 0.08 X10^3/uL; Eosinophils% 0.6 % (0-5); Hematocrit 38.5 % (40-54); Hemoglobin 12.9 g/dL (13.0-16.5); Lymphocyte % 23.3 % (19-41); Mean Corp Hgb Conc 33.5 g/dL (32-36); Mean Corpuscular Hgb 31.1 pg (27.0-32.0); Mean Corpuscular Volume 92.8 fL (80-94); Mean Platelet Vol. 8.6 fl (6.2-12.0); Monocyte# 1.23 X10^3/uL; NRBC Flagged by Analyzer 0 % (0-5); Neutrophil # 9.08 X10^3/uL (2.7-7.7); Platelet Count 327 K/mm3 (150-450); RBC Distribution Width CV 13.8 % (11.6-14.6); RBC Distribution Width SD 46.8 fl (35.1-43.9); Red Blood Count 4.15 M/mm3 (4.6-6.2); White Blood Count 13.7 K/mm3 (4.4-11.0)
--- NOTE | 2021-05-12 23:05 | EKG12_ITS ---
Test Reason : AM EKG LEFT-SIDED Blood Pressure : / mmHG Vent. Rate : 098 BPM Atrial Rate : 098 BPM P-R Int : 148 ms QRS Dur : 118 ms QT Int : 404 ms P-R-T Axes : 061 058 -31 degrees QTc Int : 515 ms Poor data quality, interpretation may be adversely affected Sinus rhythm with Premature atrial complexes Low voltage QRS Lateral infarct , age undetermined Inferior-posterior infarct , age undetermined Confirmed by JARAD ROBISON, JOSE ([id number]), slot editor CURLY GRIMES ([id number]) on 05/13/2021 12:47:22 PM Referred By: Ghada Lynch Confirmed By:JOSE ABRAHAM MD
[2021-05-12 23:32] LABS: Amphetamine Urine VISTA POSITIVE (<1000 ng/mL); Barbiturate Urine VISTA NEGATIVE (< 200 ng/mL); Benzodiazepine Urine VISTA POSITIVE (< 200 ng/mL); Cocaine Urine VISTA NEGATIVE (< 300 ng/mL); Ecstacy Urine VISTA NEGATIVE (< 500 ng/mL); Methadone Urine VISTA NEGATIVE (< 300 ng/mL); PCP Urine VISTA NEGATIVE (< 25 ng/mL); THC Urine VISTA NEGATIVE (< 50 ng/mL); Vista UDS pH Range 6
[2021-05-13] VITALS (11 sets, daily range): BP systolic 103–129; BP diastolic 65–102; PULSE 79–115; RESP 15–29; TEMP 36.8–37; O2SAT 90–97
[2021-05-13] MEDS: MELATONIN 3 MG TABLET PO (01:40)
--- NOTE | 2021-05-13 02:51 | NURSING ---
Pt. to CT from 2129 to 2149
--- NOTE | 2021-05-13 02:54 | NURSING ---
05/13/21 2330 bedside cardiac echo started. Dr. Hernandez and Dr. Lynch also at bedside.
[2021-05-13 04:34] LABS: Hematocrit 35.6 % (40-54); Hemoglobin 11.6 g/dL (13.0-16.5); Mean Corp Hgb Conc 32.6 g/dL (32-36); Mean Corpuscular Hgb 30.5 pg (27.0-32.0); Mean Corpuscular Volume 93.7 fL (80-94); Mean Platelet Vol. 8.8 fl (6.2-12.0); Platelet Count 268 K/mm3 (150-450); RBC Distribution Width CV 13.7 % (11.6-14.6); RBC Distribution Width SD 46.7 fl (35.1-43.9)
[2021-05-13 05:08] LABS: ALB/GLOB Ratio 0.7 RATIO (0.9-2.4); AST(SGOT) 114 U/L (15-37); Alanine Aminotransfer ALT/SGPT 49 U/L (16-61); Alkaline Phosphatase 60 U/L (45-117); Anion Gap 9 (5-15); BUN 17 mg/dL (7-18); BUN/Creat Ratio 27.7 RATIO (10-20); Calcium,Total 5.5 mg/dL (8.5-10.1); Chloride 112 mmol/L (98-107); Cholesterol 79 mg/dL (200); Creatinine, Serum 0.61 mg/dL (0.70-1.30); EST Glomerular Filtration Rate 144 mL/min (>60); Est Glom Filt Rate - Afr Amer 174 mL/min (>60); Estimated Creatinine Clearance 146.65 ml/min; Glucose 70 mg/dL (74-106); High Density Lipoprotein 25 mg/dL; Potassium 2.8 mmol/L (3.5-5.1); Sodium Level 140 mmol/L (136-145); Triglycerides 62 mg/dL; Very Low Density Lipoprotein 12 mg/dL (5-40)
--- NOTE | 2021-05-13 05:55 | RAD_ITS ---
STUDY: X-RAY CHEST REASON FOR EXAM: Male, 56 years old. Post heart cath TECHNIQUE: AP COMPARISON: 05/10/2021 FINDINGS: EKG leads project over the chest. Interstitial and groundglass opacities in the mid-lower lung zones stable since the prior study. No sizable effusion or pneumothorax. There is borderline cardiomegaly. Normal mediastinum and abelardo. Normal visualized pulmonary arteries. Normal visualized aortic arch and descending thoracic aorta. No acute bony process. There is no demonstrated abnormality of the visualized soft tissue structures of the upper abdomen. RAD/Chest 1 View (Portable) IMPRESSION: 1. Stable patchy mid to lower lung zone infiltrates suggesting pneumonia or pulmonary edema. Electronically Signed: Artie Copeland MD (Brooks) at 7:53 EDT , Service support ,
--- NOTE | 2021-05-13 07:24 | EKG12_ITS ---
Test Reason : Blood Pressure : / mmHG Vent. Rate : 121 BPM Atrial Rate : 136 BPM P-R Int : 000 ms QRS Dur : 122 ms QT Int : 404 ms P-R-T Axes : 000 052 -17 degrees QTc Int : 573 ms Poor data quality, interpretation may be adversely affected Atrial fibrillation Lateral infarct , age undetermined-possibly acute/recent Inferior infarct , age undetermined-possibly acute/recent Abnormal ECG Consider Repeat ECG Confirmed by PIPER ROBISON, PEPITO ([id number]), video tape editor CURLY GRIMES ([id number]) on 05/18/2021 1:24:50 PM Referred By: Ghada Lynch Confirmed By:PEPITO SALDAÑA MD
--- NOTE | 2021-05-13 07:47 | NURSING ---
Addendum entered by Robin Quiñones RN 05/13/21 07:48: 05/12/21 at 2350 Original Note: 05/12/[address] Lynch he stated to keep patient on levophed till morning
--- NOTE | 2021-05-13 08:06 | NURSING ---
education provided to patient regarding atrial fibrillation, amiodarone, lovenox, the need for second IV, close cardiac monitoring, and risks of leaving. Patient stated I am going home today, you arent doing anything until I talk to the care program resident, I want to leave. This RN educated patient that if he leaves now he is at risk for developing a clot, which could lead to a stroke and could have cardiac arrest and . Patient stated I understand that, at least I would be at home. This RN paged care program resident at this time.
--- NOTE | 2021-05-13 08:44 | PN.CARD_ITS ---
Subjective Subjective This patient seen this morning at bedside along with the nursing staff in ICU and the medical team Very high risk patient with recurrent MO. 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 fib with RVR. No symptoms of chest pain. Patient is very noncooperative and decided, to discharge himself, AGAINST MEDICAL ADVICE. Repeated advice by myself, medical team and nursing staff regarding the high risk of stroke, recurrent MO, were explained in detail to the patient. Patient pulled out all the wedding transportation driver strips and IV lines and woke out from the intensive care unit. This patient very high risk had a history of alcohol use, smoker and illicit drug abuse. Objective Data Vital Signs: Vital Signs Temp Pulse Resp BP Pulse Ox 98.2 F 105 H 20 H 103/65 95 05/13/21 04:00 05/13/21 07:00 05/13/21 07:00 05/13/21 07:00 05/13/21 07:04 Oxygen Flow Rate (L/min) 4 Oxygen Delivery Method Room Air Weight: 239 lb 6.752 oz Body Mass Index (BMI) 32.5 Intake & Output: Intake and Output for Last 24 Hours 05/11/21 05/12/21 05/13/21 23:59 23:59 23:59 Intake Total 1466.58 / 1480.68 1208.7 / 1208.7 Output Total 2250 / 2250 675 / 675 Balance -783.42 / -769.32 533.7 / 533.7 Lab / Micro Data Result Diagrams: 05/13/21 04:20 05/13/21 04:20 Labs: Laboratory Results - last 24 hr 05/12/21 20:34: WBC 11.3 H, RBC 4.60, Hgb 14.2, Hct 42.6, MCV 92.6, MCH 30.9, MCHC 33.3, RDW Std Deviation 46.6 H, RDW Coeff of Jayna 13.8, Plt Count 307, MPV 8.5, Immature Gran % (Auto) 0.600, Neut % (Auto) 64.4, Lymph % (Auto) 25.2, Rhea % (Auto) 8.8, Eos % (Auto) 0.5, Baso % (Auto) 0.5, Absolute Neuts (auto) 7.2, Absolute Lymphs (auto) 2.84, Nucleated RBC % 0 07/22/21 22:38: WBC 13.7 H, RBC 4.15 L, Hgb 12.9 L, Hct 38.5 L, MCV 92.8, MCH 31.1, MCHC 33.5, RDW Std Deviation 46.8 H, RDW Coeff of Jayna 13.8, Plt Count 327, MPV 8.6, Immature Gran % (Auto) 0.600, Neut % (Auto) 66.0, Lymph % (Auto) 23.3, Rhea % (Auto) 9.0, Eos % (Auto) 0.6, Baso % (Auto) 0.5, Absolute Neuts (auto) 9.1 H, Absolute Lymphs (auto) 3.20, Nucleated RBC % 0 05/12/21 22:55: Urine Opiates Screen NEGATIVE, Urine Methadone Screen NEGATIVE, Ur Barbiturates Screen NEGATIVE, Ur Phencyclidine Scrn NEGATIVE, Ur Amphetamines Screen POSITIVE H, U Methamphetamin-MDMA NEGATIVE, U Benzodiazepines Scrn POSITIVE H, Urine Cocaine Screen NEGATIVE, U Cannabinoids Screen NEGATIVE, Ur Drug Screen Comment 05/13/21 04:20: WBC 11.0, RBC 3.80 L, Hgb 11.6 L, Hct 35.6 L, MCV 93.7, MCH 30.5, MCHC 32.6, RDW Std Deviation 46.7 H, RDW Coeff of Jayna 13.7, Plt Count 268, MPV 8.8 05/13/21 04:20: Sodium 140, Potassium 2.8 L, Chloride 112 H, Carbon Dioxide 19.0 L, Anion Gap 9, BUN 17, Creatinine 0.61 L, Estim Creat Clear Calc 146.65, Est GFR (MDRD) Af Amer 174, Est GFR (MDRD) Non-Af 144, BUN/Creatinine Ratio 27.7 H, Glucose 70 L, Calcium 5.5 L*, Total Bilirubin 0.90, AST 114 H, ALT 49, Alkaline Phosphatase 60, Total Protein 5.0 L, Albumin 2.0 L, Globulin 3.0, Albumin/Globulin Ratio 0.7 L, Triglycerides 62, Cholesterol 79, LDL Cholesterol 42, VLDL Cholesterol 12, HDL Cholesterol 25 L Cardiology Labs/Tests 05/12/21 20:34: WBC 11.3 H, RBC 4.60, Hgb 14.2, Hct 42.6, MCV 92.6, MCH 30.9, MCHC 33.3, Plt Count 307, MPV 8.5, Immature Gran % (Auto) 0.600, Neut % (Auto) 64.4, Lymph % (Auto) 25.2, Rhea % (Auto) 8.8, Eos % (Auto) 0.5, Baso % (Auto) 0.5, Absolute Neuts (auto) 7.2, Nucleated RBC % 0 05/12/21 22:38: WBC 13.7 H, RBC 4.15 L, Hgb 12.9 L, Hct 38.5 L, MCV 92.8, MCH 31.1, MCHC 33.5, Plt Count 327, MPV 8.6, Immature Gran % (Auto) 0.600, Neut % (Auto) 66.0, Lymph % (Auto) 23.3, Rhea % (Auto) 9.0, Eos % (Auto) 0.6, Baso % (Auto) 0.5, Absolute Neuts (auto) 9.1 H, Nucleated RBC % 0 05/13/21 04:20: WBC 11.0, RBC 3.80 L, Hgb 11.6 L, Hct 35.6 L, MCV 93.7, MCH 30.5, MCHC 32.6, Plt Count 268, MPV 8.8 05/13/21 04:20: Sodium 140, Potassium 2.8 L, Chloride 112 H, Carbon Dioxide 19.0 L, Anion Gap 9, BUN 17, Creatinine 0.61 L, Est GFR (MDRD) Af Amer 174, Est GFR (MDRD) Non-Af 144, BUN/Creatinine Ratio 27.7 H, Glucose 70 L, Calcium 5.5 L*, Total Bilirubin 0.90, Triglycerides 62, Cholesterol 79, LDL Cholesterol 42, VLDL Cholesterol 12, HDL Cholesterol 25 L Rhythm: This morning underlying cardiac rhythm is A. fib with RVR EKG: Patient brought in yesterday with episode of V. tach, ST elevation in the inferior and ST-T changes noted in V1 V2 ECHO: Bedside echocardiogram last night showed inferolateral hypokinesia with ejection fraction in the range of around 35% Mild RV dilatation and mild RV systolic dysfunction Stress Test: Cardiac Cath: Chest CT Scan: Patient had CT chest, abdomen and pelvis no evidence of retroperitoneal hematoma or pericardial effusion on the CT chest. Radiography Diagnostic Testing: Radiology Impression Chest/Abdomen/Pelvis CT 05/12/21 20:47 IMPRESSION: Generalized posterior atelectatic changes otherwise negative for consolidation, pleural effusion or other infiltrates. 5 mm noncalcified nodule in the lingula. Nodules of this size require no specific follow-up imaging in a low risk patient. 6-12 months follow-up in a high risk patient. Normal heart size without pericardial effusion. Left-sided coronary calcifications. Negative for pulmonary embolus. Mild atherosclerotic changes without aneurysm. No acute bowel related findings. Negative for obstruction, perforation or inflammatory bowel changes. A normal appendix is identified. No acute renal findings. Negative for hydronephrosis, renal or ureteral stones. Nondistended unremarkable urinary bladder. Unremarkable liver, spleen and pancreas within the nondistended gallbladder. Atherosclerotic changes are mild without aneurysm. Electronically Signed: Jazmín Lawson MD at 22:22 EDT , Service support , Chest X-Ray 05/13/21 05:55 IMPRESSION: 1. Stable patchy mid to lower lung zone infiltrates suggesting pneumonia or pulmonary edema. 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 fib with RVR Cardiac examination S1-S2 is regular there is no murmur Chest examination minimal basilar rales Abdomen soft Right common femoral artery area no hematoma or bruises Right radial artery is patent and palpable No lower extremity edema. Assessment & Plan Assessment/Plan (1) Ventricular tachycardia: PLAN: 56-year-old patient who was initially admitted with non-ST elevation MO and developed symptoms of chest pain, with change in the electrocardiogram/ST?T abnormality and was taken to the [facility] where he had occluded left circumflex underwent PCI and stenting Patient discharged AGAINST MEDICAL ADVICE 2 days and Developed V. tach and brought back to the [facility] where the left circumflex stent is patent underwent intravascular ultrasound and PTCA of the stent And was been monitored in the intensive care unit, has episode of hypotension last night had full work-up with a CT abdomen, pelvis and chest which showed no evidence of a PE, no retroperitoneal hematoma and no evidence of cardiac tamponade This morning his wedding transportation driver showed underlying atrial fibrillation with RVR and very high risk patient with high risk for stroke recommended to start on anticoagulation with Eliquis continue on dual antiplatelet therapy with Brilinta and aspirin and collected in electrolyte because his potassium level was low 2.8. Recommendation and plan; 1. Very high risk patient very uncooperative patient decided discharged AGAINST MEDICAL ADVICE 2. Recommendation was to apply LifeVest due to the risk of sudden cardiac and to reevaluate for ICD implant 3. Patient refused all the cardiac care plan which was set up for him in the intensive care unit and signed for discharged AGAINST MEDICAL ADVICE. 4. Is extremely high risk patient with a risk of sudden cardiac is cardiopulmonary arrest, stroke, high risk for acute in-stent thrombosis due to noncompliance. 5. Primary student union consultant of this patient is Dr. Hernandez (2) CAD (coronary artery disease): (3) STEMI (ST elevation myocardial infarction): (4) Illicit drug use: (5) Chest pain, unspecified: QUALIFIERS: Ischemic chest pain type: unstable angina pectoris (6) HTN (hypertension): QUALIFIERS: Hypertension type: unspecified Qualified Code(s): I10 - Essential (primary) hypertension (7) Non-ST elevation MO (NSTEMI): (8) Atrial fibrillation with RVR:
--- NOTE | 2021-05-13 08:57 | DS.PCM_ITS ---
Providers Date of Admission: 05/12/21 Date of Discharge: 05/13/21 Primary Care Physician: ELVIRA Allen Consultations 05/13/21 07:39 Consult: Manager Knowledge / Pulmonary Medicine Routine Consulting Provider: [facility] Reason for Consult: Afib with RVR, SOB EMERGENT Consult: No MD Notified: Yes Date Notified: 05/13/21 Time Notified: 07:39 Method of Notification: Verbal Reason For Visit: STEMI Diagnosis Discharge Diagnosis (1) Ventricular tachycardia: Status: Acute Code(s): I47.2 - Ventricular tachycardia (2) CAD (coronary artery disease): Status: Acute Code(s): I25.10 - Atherosclerotic heart disease of [place] coronary artery without angina pectoris (3) STEMI (ST elevation myocardial infarction): Status: Acute Code(s): I21.3 - ST elevation (STEMI) myocardial infarction of unspecified site (4) Illicit drug use: Status: Chronic Code(s): F19.90 - Other psychoactive substance use, unspecified, uncomplicated (5) Chest pain, unspecified: Status: Acute Code(s): R07.9 - Chest pain, unspecified Qualifiers: Ischemic chest pain type: unstable angina pectoris (6) HTN (hypertension): Status: Chronic Code(s): I10 - Essential (primary) hypertension Qualifiers: Hypertension type: unspecified Qualified Code(s): I10 - Essential (primary) hypertension (7) Non-ST elevation MT (NSTEMI): Status: Acute Code(s): I21.4 - Non-ST elevation (NSTEMI) myocardial infarction (8) Atrial fibrillation with RVR: Status: Acute Code(s): I48.91 - Unspecified atrial fibrillation Medications at Discharge Home Medications NK 05/10/21 Hospital Course Summary of Care Provided Minutes Spent on Discharge: 50 Hospital Course: 56-year-old male with past medical history of polysubstance use disorder, previously admitted to the hospital on 05/10/21 with chest pain for which he was found to have an inferior STEMI. He underwent cardiac catheterization showed occlusion of large proximal left circumflex for which underwent PCI and stenting of the left circumflex with SRINATH. His EF was 35%, likely secondary to alcoholic cardiomyopathy. Patient signed out AMA on 05/11/21. He presented yesterday, 05/12/21 with chest pain. EMS found him to be in V-tach. He was cardioverted. He was found to have depression in V2. Patient was taken t o the cardiac cath emergently. Left circumflex stent was said to be patent. He had an IVUS of the left circumflex. Patient was brought back to the ICU and monitored overnight. This morning, he was found to be in A. fib with RVR. His potassium was 2.8. Patient was to be started on amiodarone, potassium replaced. He however signed out AMA. Patient was seen at the bedside by myself and Dr. Lynch. We had a long talk with him, advised him to stay to have his electrolytes replaced. We explained that he was currently in A. fib with RVR. I asked patient to tell me about what he thought was a state of condition of his heart. He stated that he knew his heart was 'F... up. Patient ripped out his leads and his IV access from his left wrist, whilst we were in the room talking to him. He signed his AMA forms and walked out. I called his pharmacy- [facility] in [place] to confirm that patient has his medications. He picked up his dual antiplatelets and statin, and beta- zakia on 05/12/21. Physical Exam Narrative Physical exam: General: Alert, Oriented x3, Cooperative, No apparent distress, Well developed HEENT: Atraumatic Oral: Moist Mucosa Neck: Supple Lungs: Clear to auscultation Cardiovascular: HS I+II, regular, no murmurs Abdomen: Bowel Sounds Present, Soft, Non Tender Extremities: No edema Weight / BMI Weight Weight: 108.6 kg Body Mass Index (BMI) 32.5 ABG / Lab / Microbiology Data Result Diagrams: 05/13/21 04:20 05/13/21 04:20 Laboratory: Laboratory Results - last 24 hr 05/12/21 20:34: WBC 11.3 H, RBC 4.60, Hgb 14.2, Hct 42.6, MCV 92.6, MCH 30.9, MCHC 33.3, RDW Std Deviation 46.6 H, RDW Coeff of Jayna 13.8, Plt Count 307, MPV 8.5, Immature Gran % (Auto) 0.600, Neut % (Auto) 64.4, Lymph % (Auto) 25.2, Terrell % (Auto) 8.8, Eos % (Auto) 0.5, Baso % (Auto) 0.5, Absolute Neuts (auto) 7.2, Absolute Lymphs (auto) 2.84, Nucleated RBC % 0 05/12/21 22:38: WBC 13.7 H, RBC 4.15 L, Hgb 12.9 L, Hct 38.5 L, MCV 92.8, MCH 31.1, MCHC 33.5, RDW Std Deviation 46.8 H, RDW Coeff of Jayna 13.8, Plt Count 327, MPV 8.6, Immature Gran % (Auto) 0.600, Neut % (Auto) 66.0, Lymph % (Auto) 23.3, Terrell % (Auto) 9.0, Eos % (Auto) 0.6, Baso % (Auto) 0.5, Absolute Neuts (auto) 9.1 H, Absolute Lymphs (auto) 3.20, Nucleated RBC % 0 05/12/21 22:55: Urine Opiates Screen NEGATIVE, Urine Methadone Screen NEGATIVE, Ur Barbiturates Screen NEGATIVE, Ur Phencyclidine Scrn NEGATIVE, Ur Amphetamines Screen POSITIVE H, U Methamphetamin-MDMA NEGATIVE, U Benzodiazepines Scrn POSITIVE H, Urine Cocaine Screen NEGATIVE, U Cannabinoids Screen NEGATIVE, Ur Drug Screen Comment 05/13/21 04:20: WBC 11.0, RBC 3.80 L, Hgb 11.6 L, Hct 35.6 L, MCV 93.7, MCH 30.5, MCHC 32.6, RDW Std Deviation 46.7 H, RDW Coeff of Jayna 13.7, Plt Count 268, MPV 8.8 05/13/21 04:20: Sodium 140, Potassium 2.8 L, Chloride 112 H, Carbon Dioxide 19.0 L, Anion Gap 9, BUN 17, Creatinine 0.61 L, Estim Creat Clear Calc 146.65, Est GFR (MDRD) Af Amer 174, Est GFR (MDRD) Non-Af 144, BUN/Creatinine Ratio 27.7 H, Glucose 70 L, Calcium 5.5 L*, Total Bilirubin 0.90, AST 114 H, ALT 49, Alkaline Phosphatase 60, Total Protein 5.0 L, Albumin 2.0 L, Globulin 3.0, Albumin/Globulin Ratio 0.7 L, Triglycerides 62, Cholesterol 79, LDL Cholesterol 42, VLDL Cholesterol 12, HDL Cholesterol 25 L Radiography Diagnostic Testing: Radiology Impression Chest/Abdomen/Pelvis CT 05/12/21 20:47 IMPRESSION: Generalized posterior atelectatic changes otherwise negative for consolidation, pleural effusion or other infiltrates. 5 mm noncalcified nodule in the lingula. Nodules of this size require no specific follow-up imaging in a low risk patient. 6-12 months follow-up in a high risk patient. Normal heart size without pericardial effusion. Left-sided coronary calcifications. Negative for pulmonary embolus. Mild atherosclerotic changes without aneurysm. No acute bowel related findings. Negative for obstruction, perforation or inflammatory bowel changes. A normal appendix is identified. No acute renal findings. Negative for hydronephrosis, renal or ureteral stones. Nondistended unremarkable urinary bladder. Unremarkable liver, spleen and pancreas within the nondistended gallbladder. Atherosclerotic changes are mild without aneurysm. Electronically Signed: Jazmín Lawson MD at 22:22 EDT , Service support , Chest X-Ray 05/13/21 05:55 IMPRESSION: 1. Stable patchy mid to lower lung zone infiltrates suggesting pneumonia or pulmonary edema. Electronically Signed: Artie Copeland MD ([place]) at 7:53 EDT , Service support , Meaningful Use Info Meaningful Use Diagnoses (Choose all that apply): None applicable Discharge Plan Admission Admit Date/Time: 05/12/21 17:45 Attending Provider: Ghada Lynch Primary Care Provider: Tosha Russell NP Consulting Providers: Yony Lamar ; Brian Stephens ; Mena De Jesus AGRICULTURAL SYSTEMS SPECIALIST Instructions Patient Instructions: ED Chest Pain, Noncardiac Discharge Orders/Prescriptions Prescriptions: No Action NK RF: 0 Referrals / Follow Up: Tosha Russell NP, AGRICULTURAL SYSTEMS SPECIALIST-C [Primary Care Provider] - Charges/Coding Visit Charges Inpatient E&M: 42597 Disch Hosp
--- NOTE | 2021-05-13 09:03 | NURSING ---
0816 Dr. Lynch and this RN at bedside extensively explaining critical condition and the need to stay in ICU. This patient stated I dont give a F I am not staying here I can't sleep in this bed and want the F out of here. No one will make me stay. 0820 This RN, Dr. Morgan, and Dr. Lynch at bedside extensively educating patient on POC, new atrial fibrillation, need for cardiac medication-amiodarone, potassium chloride, magnesium, and blood thinner medications. Patient pulling off EKG leads, pulse ox, and pulled out IV while this RN and Drs at bedside, Patient verbalizes understanding, states I know I know I am going home I know my risks I know I could stroke and . Patient signed AMA form. Patient walked to main entrance and cab was called by volunteers.
--- NOTE | 2021-05-13 10:00 | EKG12_ITS ---
Test Reason : POST CATH Blood Pressure : / mmHG Vent. Rate : 076 BPM Atrial Rate : 076 BPM P-R Int : 170 ms QRS Dur : 100 ms QT Int : 418 ms P-R-T Axes : 052 -33 036 degrees QTc Int : 470 ms Normal sinus rhythm Left axis deviation Low voltage QRS Lateral infarct , age undetermined Inferior infarct , age undetermined Abnormal ECG No previous ECGs available Confirmed by JARAD ROBISON, JOSE ([id number]), senior technical editor CURLY GRIMES ([id number]) on 05/13/2021 12:50:12 PM Referred By: Ghada Lynch Confirmed By:JOSE ABRAHAM MD
--- NOTE | 2021-05-13 10:36 | CASEMGMT ---
GREER CM Chart review: Patient left AMA before CM could assess patient for needs. Patient was admitted 05/10-05/11 for NSTEMI and left AMA. Patient was given a [employer] savings card. Patient returned 05/12 for STEMI, v-fib. Patient again left AMA 05/13.
--- NOTE | 2021-05-13 11:06 | EKG12_ITS ---
Test Reason : POST STEMI Blood Pressure : / mmHG Vent. Rate : 095 BPM Atrial Rate : 095 BPM P-R Int : 160 ms QRS Dur : 114 ms QT Int : 428 ms P-R-T Axes : 062 051 -54 degrees QTc Int : 537 ms Sinus rhythm with Fusion complexes Inferior-posterior infarct , possibly acute Anterolateral infarct , age undetermined Confirmed by JARAD ROBISON, JOSE ([id number]), staple laster CURLY GRIMES ([id number]) on 05/17/2021 9:46:33 AM Referred By: Ghada Lynch Confirmed By:JOSE ABRAHAM MD
[2021-05-13 13:49] LABS: Magnesium 1.4 mg/dL (1.6-2.6)
--- NOTE | 2021-05-13 15:45 | EKG12_ITS ---
Test Reason : RIGHT-SIDED EKG Blood Pressure : / mmHG Vent. Rate : 082 BPM Atrial Rate : 082 BPM P-R Int : 154 ms QRS Dur : 116 ms QT Int : 442 ms P-R-T Axes : 056 022 -39 degrees QTc Int : 516 ms Normal sinus rhythm Lateral infarct , age undetermined Inferior-posterior infarct , possibly acute Abnormal ECG Confirmed by JARAD ROBISON, JOSE ([id number]), film or videotape editor CURLY GRIMES ([id number]) on 05/13/2021 12:47:42 PM Referred By: Ghada Lynch Confirmed By:JOSE ABRAHAM MD
--- NOTE | 2021-05-23 09:21 | PCI.CARDCATH ---
PCI Cardiac Cath Report PCI Report: This is addendum of dictation on May 12, 2021. 56-year-old patient brought into the [facility], from ER, this patient discharged AGAINST MEDICAL ADVICE from CCU, has episode of V. tach and brought by EMS to the ER With a clinical diagnosis of non-ST elevation SC as he had symptoms of chest pain after stent placed in the circumflex artery. Patient also had alcohol abuse with EF around 35% which is disproportionate to his coronary angiography. Recommended LifeVest prior to discharge. Angiographic view of the left circumflex showed patency of the stent with nonobstructive atherosclerosis of around 20 to 30%, IVUS?intravascular ultrasound of the left circumflex showed no evidence of dissection. We proceed with balloon dilatation 4 mm to the left circumflex stent, with reduction of stenosis to 0% Pre and post GABRIELA-3 flow. No complication in the [facility]. Ghada Lynch MD,FACC,[facility] customs and border protection officer
== END 2021-05-13 08:25 | disposition left against medical advice (07) ==
LOC: ED 13:49 → SDC 14:29 → ICU 14:30 → SDC 18:29 → ICU 05-13 07:01
PROVIDERS: Internal Medicine; Admitting Provider Internal Medicine Interventional Cardiology; Emergency Provider Emergency Medicine; PCP Nurse Practitioner Adult Health; Referring Provider Internal Medicine Interventional Cardiology; Visit Provider Internal Medicine Interventional Cardiology
DX: I21.19 ST elevation (STEMI) myocardial infarction involving other coronary artery of inferior wall (principal); F17.210 Nicotine dependence, cigarettes, uncomplicated; E78.00 Pure hypercholesterolemia, unspecified; G89.29 Other chronic pain; F15.10 Other stimulant abuse, uncomplicated; F10.10 Alcohol abuse, uncomplicated; I25.10 Atherosclerotic heart disease of native coronary artery without angina pectoris; I47.2 Ventricular tachycardia; I50.20 Unspecified systolic (congestive) heart failure; I11.0 Hypertensive heart disease with heart failure; I48.91 Unspecified atrial fibrillation; I25.2 Old myocardial infarction
CPT/HCPCS: 71045; 71260; 74177; 80053; 80061; 80307; 83735; 85025; 85027; 92920; 92978; 93005; 93308; 93454; 96361; 96365; 96366; 96367; 99152; 99153; 99251; 99406; C1892; J7030; J7040; J7050; Q9967; C1725; C1753; C1760; C1769; C1887; C1894; G0463; J0610; J1327; J1940

== ENCOUNTER 2021-07-20 19:59 | Inpatient (IN) | payer MEDICAID, SELFPAY ==
[2021-07-20 20:01] VITALS: BP 92/74; PULSE 140; RESP 20; TEMP 35.9; O2SAT 93; BMI 38.2
[2021-07-20 20:05] VITALS: BP 92/74; PULSE 140; RESP 20; TEMP 35.9; O2SAT 93
--- NOTE | 2021-07-20 21:24 | RAD_ITS ---
HISTORY: chf EXAMINATION/TECHNIQUE: XR Chest 1 View: Portable upright AP chest x-ray COMPARISON: 05/13/21 FINDINGS: LINES/DEVICES: None. LUNGS: Hazy airspace opacities at the right lower lung field, no consolidation or pleural effusion. MEDIASTINUM AND CARDIOVASCULAR STRUCTURES: Cardiomegaly. Central airways and mediastinal contour are unremarkable. BONES AND SOFT TISSUES: No acute bony abnormalities. RAD/Chest 1 View (Portable) IMPRESSION: Cardiomegaly with right basilar airspace disease suspicious for pneumonia. at 2212 Reported and signed by: Reymundo Patino MD Electronically Signed: Reymundo Patino MD at 22:11 EDT Tel , Service support ,
--- NOTE | 2021-07-20 21:24 | EKG12_ITS ---
Test Reason : SOB Blood Pressure : / mmHG Vent. Rate : 136 BPM Atrial Rate : 000 BPM P-R Int : 000 ms QRS Dur : 108 ms QT Int : 338 ms P-R-T Axes : 000 108 -01 degrees QTc Int : 508 ms Supraventricular tachycardia with occasional Premature ventricular complexes Low voltage QRS Borderline ECG Confirmed by JARAD ROBISON, JOSE ([id number]), index editor CURLY GRIMES ([id number]) on 07/25/2021 7:44:02 AM Referred By: ANTONINA Confirmed By:JOSE ABRAHAM MD
--- NOTE | 2021-07-20 21:25 | ED.VIS.DYS ---
HPI History of Present Illness Chief Complaint: Shortness of Breath Informant: patient and family Narrative Narrative: 56-year-old male presents the emergency room with shortness of breath. Patient had a STEMI during the summer months. He signed out AMA. He presented to the [facility] recently with CHF. He finally followed up with cardiology last week. He is a very poor historian. From looking at his chart he has a history of atrial fibrillation as well as ventricular tachycardia. He is on aspirin Plavix and Xarelto. It is noted that he is noncompliant. He notes that he has gained weight of about 30 pounds recently. He notes his legs are very swollen. He notes dyspnea with cough that is nonproductive. No fevers. Patient noted to be hypoxic at rest at 87% PFSH PFSH Medical History Alcohol abuse Atherosclerotic heart disease of [place] coronary artery without angina pectoris Chronic pain Illicit drug use Smoker Substance abuse Home Medications aspirin 81 mg tablet,delayed release 81 mg PO DAILY #90 tab 07/15/21 [Rx Last Taken Unknown] clopidogrel 75 mg tablet 75 mg PO DAILY #90 tab 07/15/21 [Rx Last Taken Unknown] furosemide 40 mg tablet 40 mg PO DAILY #90 tab 07/15/21 [Rx Last Taken Unknown] lisinopril 5 mg tablet 5 mg PO DAILY #90 tab 07/15/21 [Rx Last Taken Unknown] rivaroxaban 20 mg tablet 20 mg PO DAILY #90 tab 07/15/21 [Rx Last Taken Unknown] rosuvastatin 40 mg tablet 40 mg PO DAILY #90 tab 07/15/21 [Rx Last Taken Unknown] Allergy/AdvReac Type Severity Reaction Status Date / Time No Known Allergies Allergy Verified 07/20/21 20:05 Family History Father COPD (chronic obstructive pulmonary disease) Mother Heart disease Hypertension Surgical History Presence of coronary angioplasty implant and graft Presence of stent in coronary artery (~05/11/21) Social History household members: none Smoking Status: Heavy Smoker (>10/day) alcohol intake: current alcohol intake frequency: 3 or more drinks per day Alcohol type: beer details: 12 pack/day- beer substance use type: methamphetamine ROS ROS ED Constitutional Constitutional ED: Denies chills or weight loss Eyes Eyes: Denies change in vision or diplopia ENT ENT ED: Denies ear pain, rhinorrhea or sore throat Cardiovascular Cardiovascular: Reports orthopnea, palpitations, racing heartbeat and other Details: Lower extremity edema ; Denies chest pain Respiratory/Chest Respiratory/Chest: Reports cough, dyspnea, dyspnea on exertion and orthopnea Gastrointestinal Gastrointestinal: Denies abdominal pain, diarrhea, nausea or vomiting Genitourinary Genitourinary ED: Denies dysuria, hematuria or urinary frequency Musculoskeletal Musculoskeletal: Denies arthralgias or myalgias Integumentary Denies abscess or rash Neurologic Neurologic: Denies headache(s) or weakness Psychiatric Psychiatric: Denies anxiety, depression, suicidal ideation or suicidal thoughts Endocrine Endocrinology: Denies polydipsia, polyphagia or polyuria Allergic/Immunologic Allergic/Immunologic ED: Denies mouth swelling, tongue swelling or urticaria EXAM Physical Exam Const Vital Signs: 07/20/21 20:01 07/20/21 20:05 07/20/21 21:12 Temperature 96.7 F L 96.7 F L Temperature Source Temporal Temporal Pulse Rate 140 H 140 H Respiratory Rate 20 H 20 H Respiratory Effort Short of Breath Respiratory Pattern Tachypnea Blood Pressure 92/74 92/74 Blood Pressure Mean 80 80 Pulse Ox 93 93 Oxygen Delivery Method Nasal Cannula Nasal Cannula Oxygen Flow Rate (L/min) 5 5 5 07/20/21 22:17 Temperature Temperature Source Pulse Rate 122 H Respiratory Rate 29 H Respiratory Effort Respiratory Pattern Blood Pressure 102/76 Blood Pressure Mean 84 Pulse Ox 96 Oxygen Delivery Method Room Air Oxygen Flow Rate (L/min) Positive well nourished, well developed and obese General Appearance ED: well developed Nutritional Appearance: obese HEENT Reports normocephalic, head/scalp atraumatic and moist mucous membranes Eyes PERRL and EOMs intact bilaterally Neck no lymphadenopathy, supple and no JVD Resp normal respiratory effort and clear to auscultation bilaterally Cardio no murmurs Rate: tachycardic and other Other Details: Irregularly irregular GI normal to inspection, nondistended, normoactive bowel sounds and non-tender Palpation: soft Back/Spine no CVA tenderness and normal ROM Extremity Extremity Narrative: Bilateral pitting edema to the lower extremities General Extremety ED: Yes edema General Extremity: edema Neuro oriented x3 and CN's II-XII intact bilaterally Sensorium / Orientation: alert Motor Exam: strength 5/5 throughout Psych mental status grossly normal Mood & Affect: Negative for depressed or tearful Skin no rashes or lesions noted and no wounds MDM MDM MDM Narrative Medical decision making narrative: My interpretation of the chest x-ray is congestive heart failure. White count at 7.9. Hemoglobin 13.2 with platelets of 303. INR 3.2 PTT 42.5. Troponin 41 beta natruretic peptide at 1564. Patient received Lasix as well as Cardizem. His blood pressure started to improve as we lowered his heart rate. He will be placed on a Cardizem drip. Plan will be admission into the hospital. Lab Data Attestation: I reviewed the patient's lab results. Labs: Laboratory Results - last 24 hr 07/20/21 07/20/21 07/20/21 21:05 21:05 21:05 WBC 7.9 RBC 4.48 L Hgb 13.2 Hct 41.4 MCV 92.4 MCH 29.5 MCHC 31.9 L RDW Std Deviation 53.8 H RDW Coeff of Jayna 16.1 H Plt Count 303 MPV 9.2 Immature Gran % (Auto) 0.500 Neut % (Auto) 62.3 Lymph % (Auto) 27.4 Wake % (Auto) 7.9 Eos % (Auto) 0.9 Baso % (Auto) 1.0 Absolute Neuts (auto) 4.9 Absolute Lymphs (auto) 2.17 Nucleated RBC % 0 PT 32.3 H INR 3.2 APTT 42.5 H Sodium 130 L Potassium 4.3 Chloride 96 L Carbon Dioxide 24.0 Anion Gap 10 BUN 34 H Creatinine 1.46 H Estim Creat Clear Calc 54.01 Est GFR (MDRD) Af Amer 64 Est GFR (MDRD) Non-Af 53 L BUN/Creatinine Ratio 23.3 H Glucose 95 Calcium 8.5 Magnesium 2.3 Total Bilirubin 1.80 H AST 91 H ALT 514 H Alkaline Phosphatase 142 H Troponin I High Sens 41 B-Natriuretic Peptide Total Protein 7.5 Albumin 2.5 L Globulin 5.0 H Albumin/Globulin Ratio 0.5 L 07/20/21 21:05 WBC RBC Hgb Hct MCV MCH MCHC RDW Std Deviation RDW Coeff of Jayna Plt Count MPV Immature Gran % (Auto) Neut % (Auto) Lymph % (Auto) Wake % (Auto) Eos % (Auto) Baso % (Auto) Absolute Neuts (auto) Absolute Lymphs (auto) Nucleated RBC % PT INR APTT Sodium Potassium Chloride Carbon Dioxide Anion Gap BUN Creatinine Estim Creat Clear Calc Est GFR (MDRD) Af Amer Est GFR (MDRD) Non-Af BUN/Creatinine Ratio Glucose Calcium Magnesium Total Bilirubin AST ALT Alkaline Phosphatase Troponin I High Sens B-Natriuretic Peptide 1564.7 H Total Protein Albumin Globulin Albumin/Globulin Ratio Radiography Diagnostic Testing: Radiology Impression Chest X-Ray 07/20/21 21:24 IMPRESSION: Cardiomegaly with right basilar airspace disease suspicious for pneumonia. at 2212 Reported and signed by: Reymundo Patino MD Electronically Signed: Reymundo Patino MD at 22:11 EDT Tel , Service support , EKG Initial EKG: Attestation: I personally reviewed and interpreted this EKG as follows: Comments: Probable A. fib with a ventricular rate of 136 bpm Discharge Plan Dx/Rx/DC Orders Clinical Impression: Atrial fibrillation with RVR, CHF (congestive heart failure), Acute hypoxemic respiratory failure Disposition Disposition: Acute Care Hospital [facility]
[2021-07-20 21:43] LABS: Absolute Lymphocyte Count 2.17 X10^3/uL (0.83-4.51); Absolute Neutrophil Count 4.9 X10^3/uL (2.0-7.7); Basophil# 0.08 X10^3/uL; Eosinophil# 0.07 X10^3/uL; Eosinophils% 0.9 % (0-5); Hematocrit 41.4 % (40-54); Hemoglobin 13.2 g/dL (13.0-16.5); Lymphocyte # 2.17 X10^3/ul (0.83-4.51); Lymphocyte % 27.4 % (19-41); Mean Corp Hgb Conc 31.9 g/dL (32-36); Mean Corpuscular Hgb 29.5 pg (27.0-32.0); Mean Corpuscular Volume 92.4 fL (80-94); Mean Platelet Vol. 9.2 fl (6.2-12.0); Monocyte# 0.63 X10^3/uL; Monocyte% 7.9 % (0-10); NRBC Flagged by Analyzer 0 % (0-5); Neutrophil # 4.94 X10^3/uL (2.7-7.7); Neutrophil % 62.3 % (47-70); Platelet Count 303 K/mm3 (150-450); RBC Distribution Width CV 16.1 % (11.6-14.6); RBC Distribution Width SD 53.8 fl (35.1-43.9); Red Blood Count 4.48 M/mm3 (4.6-6.2); White Blood Count 7.9 K/mm3 (4.4-11.0)
[2021-07-20 21:49] LABS: International Normalized Ratio 3.2; Prothrombin Time (Protime)PT. 32.3 SECONDS (11.7-14.9)
[2021-07-20 21:50] LABS: Partial Thromboplast Time 42.5 Seconds (24.1-36.2)
[2021-07-20 21:59] LABS: ALB/GLOB Ratio 0.5 RATIO (0.9-2.4); AST(SGOT) 91 U/L (15-37); Alanine Aminotransfer ALT/SGPT 514 U/L (16-61); Albumin, Serum 2.5 g/dL (3.2-5.0); Alkaline Phosphatase 142 U/L (45-117); Anion Gap 10 (5-15); BUN 34 mg/dL (7-18); BUN/Creat Ratio 23.3 RATIO (10-20); Calcium,Total 8.5 mg/dL (8.5-10.1); Chloride 96 mmol/L (98-107); Creatinine, Serum 1.46 mg/dL (0.70-1.30); EST Glomerular Filtration Rate 53 mL/min (>60); Est Glom Filt Rate - Afr Amer 64 mL/min (>60); Estimated Creatinine Clearance 54.01 ml/min; Glucose 95 mg/dL (74-106); Magnesium 2.3 mg/dL (1.6-2.6); Potassium 4.3 mmol/L (3.5-5.1); Protein, Total 7.5 g/dL (6.4-8.2); Sodium Level 130 mmol/L (136-145); Troponin-I HS 41 pg/mL (3.0-78.0)
[2021-07-20] MEDS: dilTIAZem 25 MG/5 ML Vial 10 MG IV BOLUS (22:16)
[2021-07-20 22:17] VITALS: BP 102/76; PULSE 122; RESP 29; O2SAT 96
[2021-07-20] MEDS: Furosemide 100 MG/10 ML Vial 60 MG IV (22:27)
--- NOTE | 2021-07-20 22:41 | HP.PCM.HOS_ITS ---
HPI - General General Date of Admission: 07/20/21 HPI Narrative KOURTNEY ELIZABETH, is a 56 M with a significant history of CAD status post stent; alcoholism; methamphetamine abuse; atrial fibrillation; heart failure with reduced ejection fraction who presents to the emergency department with pro gressively worsening bilateral lower extremity edema and increasing weight. Associated with his symptoms is shortness of breath at rest; orthopnea; paroxysmal nocturnal dyspnea; fatigue;weakness and anorexia. At the emergent department patient was found to be in A. fib with RVR. He was given Cardizem 10 mg IV bolus. His heart rate improved. However his blood pressure dropped. Patient was given 20 mg of Lasix IV at the ED. Of note patient was at [facility] on 05/10/2021 and was diagnosed with non-STEMI at that time. Patient had a drug eluting stent placed in his circumflex. Reportedly at around June of this year she went to [facility] where he was diagnosed with acute CHF. Patient was at [facility] cardiology office on 07/15/2021. [facility] Medical History (Updated 07/21/21 @ 01:[address] Ángel Abreu MD) Alcohol abuse Alcohol abuse Atherosclerotic heart disease of [place] coronary artery without angina pectoris Atrial fibrillation Chronic pain Congestive heart failure (CHF) Coronary artery disease Hypertension Illicit drug use Myocardial infarct Smoker Smoker Substance abuse Substance abuse Home Medications aspirin 81 mg tablet,delayed release 81 mg PO DAILY #90 tab 07/15/21 [Rx Last Taken Unknown] clopidogrel 75 mg PO DAILY 07/21/21 [History Last Taken Unknown] furosemide [Lasix] 40 mg PO DAILY 07/21/21 [History Last Taken Unknown] lisinopril 5 mg PO DAILY 07/21/21 [History Last Taken Unknown] rivaroxaban [Xarelto] 20 mg PO DAILY 07/21/21 [History Last Taken Unknown] rosuvastatin 40 mg PO DAILY 07/21/21 [History Last Taken Unknown] Allergy/AdvReac Type Severity Reaction Status Date / Time No Known Allergies Allergy Verified 07/20/21 20:05 Family History Father COPD (chronic obstructive pulmonary disease) Mother Heart disease Hypertension Surgical History Presence of coronary angioplasty implant and graft Presence of stent in coronary artery (~05/11/21) Social History household members: none Smoking Status: Heavy Smoker (>10/day) alcohol intake: current alcohol intake frequency: 3 or more drinks per day Alcohol type: beer details: 12 pack/day- beer substance use type: methamphetamine ROS ROS Narrative Constitutional: Reports fatigue and weight gain. Denies fever, or chills. Eyes: Denies blurry vision, change in eye color, change in vision, discharge from eye(s), double vision, erythema, eye pain, loss of vision or other HEENT: Denies abnormal hearing, dysphagia, ear pain, epistaxis, headache(s), hearing loss, nasal congestion, nasal discharge, post nasal drip, sinus pressure, sore throat or other Cardiovascular: Reports orthopnea and paroxysmal nocturnal dyspnea. Denies chest pain. Respiratory/Chest: Reports shortness of breath. Denies cough or wheezing. Gastrointestinal: Denies abdominal pain, coffee ground emesis, constipation, diarrhea, dyspepsia, hematemesis, hematochezia, loose stools, melena, nausea, vomiting or other Genitourinary: Denies burning urination, difficulty urinating, dysuria, hematuria, nocturia, urinary frequency, urinary hesitancy, urinary incontinence, urinary urgency or other Musculoskeletal: Denies arthralgias, back pain, joint pain, joint stiffness, joint swelling, myalgias, neck pain or other Neurologic: Denies abnormal gait, abnormal speech, confusion, disequilibrium, dizziness, focal weakness, headache(s), numbness, paresthesias, seizure-like activity, seizures, syncope, tingling, tremor(s) or other Psychiatric: Denies anxiety, depression, homicidal ideation, suicidal ideation or other Endocrinology: Denies change in body appearance, cold intolerance, excessive sweating, heat intolerance, polydipsia, polyuria or other Hematologic/Lymphatic: Denies anemia, easy bleeding, easy bruising, lymph adenopathy or other Integumentary: Denies rashes Allergic/Immunologic: Denies rhinitis, hives, eczema, asthma or other Vital Signs Vital Signs Vital Signs: 07/20/21 20:01 07/20/21 20:05 07/20/21 21:12 Temperature 96.7 F L 96.7 F L Temperature Source Temporal Temporal Pulse Rate 140 H 140 H Respiratory Rate 20 H 20 H Respiratory Effort Short of Breath Respiratory Pattern Tachypnea Blood Pressure 92/74 92/74 Blood Pressure Mean 80 80 Pulse Ox 93 93 Oxygen Delivery Method Nasal Cannula Nasal Cannula Oxygen Flow Rate (L/min) 5 5 5 07/20/21 22:17 Temperature Temperature Source Pulse Rate 122 H Respiratory Rate 29 H Respiratory Effort Respiratory Pattern Blood Pressure 102/76 Blood Pressure Mean 84 Pulse Ox 96 Oxygen Delivery Method Room Air Oxygen Flow Rate (L/min) Weight Weight: 114.305 kg Body Mass Index (BMI) 38.2 Physical Exam Narrative Physical exam: General: Well-nourished, well-developed. Head: Normocephalic, atraumatic, no tenderness Eyes: PERRLA, EOMI ENT, no trauma, moist mucous membranes, no rhinorrhea Neck: Nontender, full range of motion, no spinal tenderness, deformities, step- off CVS: Tachycardia; irregularly irregular rate and rhythm. S1-S2 present. No murmur, gallop or rub. Respiratory : Tachypnea; coarse breath sounds. Abdomen: Soft, nontender, nondistended, normal bowel sounds, no masses : Deferred Back: Nontender, no CVA tenderness, no midline spinal tenderness, deformities, step-offs Extremities: 4+ bilateral lower extremity edema; full range of motion. Skin: Normal color, no trauma, abrasions Neuro: Alert, oriented, cranial nerves II through XII grossly intact. Psychiatry: Normal mood. Normal affect. Not depressed. Not anxious. Results Lab / Micro Data Result Diagrams: 07/20/21 21:05 07/20/21 21:05 Labs: Laboratory Results - last 24 hr 07/20/21 21:05: WBC 7.9, RBC 4.48 L, Hgb 13.2, Hct 41.4, MCV 92.4, MCH 29.5, MCHC 31.9 L, RDW Std Deviation 53.8 H, RDW Coeff of Jayna 16.1 H, Plt Count 303, MPV 9.2, Immature Gran % (Auto) 0.500, Neut % (Auto) 62.3, Lymph % (Auto) 27.4, [place] % (Auto) 7.9, Eos % (Auto) 0.9, Baso % (Auto) 1.0, Absolute Neuts (auto) 4.9, Absolute Lymphs (auto) 2.17, Nucleated RBC % 0 07/20/21 21:05: PT 32.3 H, INR 3.2, APTT 42.5 H 07/20/21 21:05: Sodium 130 L, Potassium 4.3, Chloride 96 L, Carbon Dioxide 24.0, Anion Gap 10, BUN 34 H, Creatinine 1.46 H, Estim Creat Clear Calc 54.01, Est GFR (MDRD) Af Amer 64, Est GFR (MDRD) Non-Af 53 L, BUN/Creatinine Ratio 23.3 H, Glucose 95, Calcium 8.5, Magnesium 2.3, Total Bilirubin 1.80 H, AST 91 H, ALT 514 H, Alkaline Phosphatase 142 H, Troponin I High Sens 41, Total Protein 7.5, Albumin 2.5 L, Globulin 5.0 H, Albumin/Globulin Ratio 0.5 L 07/20/21 21:05: B-Natriuretic Peptide 1564.7 H Radiology Impression Chest X-Ray 07/20/21 21:24 IMPRESSION: Cardiomegaly with right basilar airspace disease suspicious for pneumonia. at 2212 Reported and signed by: Reymundo Patino MD Electronically Signed: Reymundo Patino MD at 22:11 EDT Tel , Service support , Assessment & Plan Assessment/Plan (1) HTN (hypertension): QUALIFIERS: Hypertension type: unspecified Qualified Code(s): I10 - Essential (primary) hypertension (2) Atrial fibrillation with RVR: (3) Acute heart failure: PLAN: Acute Exacerbation of heart failure with reduced ejection fraction 05/23/2021: Per addendum to cardiology notes: LifeVest was recommended prior to previous discharge. Cardiology catheterization report on 05/10/2021: Patient had occluded proximal circumflex for which he had PCI with drug-eluting stent. Per cardiology notes patient is a candidate for PCI of sidebranch diagonal proximal artery. Patient left hospital AGAINST MEDICAL ADVICE. On 05/12/2021 the circumflex a rtery occluded and patient had balloon dilatation. At the soil engineer note ejection fraction is 35% which is disproportionate to his coronary anatomy. Reduced ejection fraction attributed to likely alcoholic cardiomyopathy and a probable illicit substance abuse. Echocardiogram on 05/12/2021 showed ejection fraction of 35 patient to 40%. Mild eccentric tricuspid valve insufficiency. Mild RV dilatation with mild RV systolic function. Impression of chest x-ray by radiology: Cardiomegaly with right basilar airspace disease suspicious for pneumonia. Actual chest x-ray image independently inter preted showed bilateral pneumonia with some consolidation at the right base. Patient with no leukocytosis or fever. Pneumonia is ruled out. Place on monitored bed at the progressive care unit Weight on admission to the floor; and then daily Strict I&O's Emergency department labs reviewed sodium of 130 and potassium of 4.3. BNP was 1564.7 Initially plan of Emergency Department was to give Lasix 60 mg IV push. However patient blood pressure was soft so he received 20 mg IV Lasix. Also he received Cardizem IV push at emergent department for A. fib RVR. Discussed with on-call cardiology and will put patient on Lasix drip if systolic blood pressure remains above 90. BiPAP ordered. Monitor electrolytes and renal function Trend blood pressure Titrate diuretics and heart failure/blood pressure medications with blood pressure. Kerlix roll and vinny wrap to bilateral lower extremities Fluid restriction of 1500 mls daily 2 g cardiac diet. Resume beta-zakia when blood pressure is stable. A. fib with RVR Place on PCU on telemetry Magnesium is 2.3. Potassium is 4.3. Continue home a Xarelto. Received Cardizem IV bolus in the emergency department. Because of concomitant heart failure and soft blood pressures digoxin IV ordered. BRIEN Creatinine presentation is 1.46. Baseline creatinine is less than 1. Likely cardiorenal syndrome. Lasix as above. Trend BMP. On home Lasix. Resume when creatinine improves. Hyponatremia Likely secondary to congestive heart failure. Of note patient reports a significant reduction in her drinking habit for which beer potomania may be unlikely. Lasix as above. Trend BMP. Alcoholism Report that previously he is to drink about 30 beers per day. Report that he has significantly reduced drinking. Patient does not think that he will go into withdrawal at this time. [facility] protocol ordered. Tobacco abuse Counseled. DVT prophylaxis: Not indicated since patient is on Xarelto. Charges/Coding Visit Charges Inpatient E&M: 35917 Init Hosp L3
[2021-07-20 22:58] VITALS: BP 100/72; PULSE 105; RESP 27; TEMP 36.6; O2SAT 97
[2021-07-20 23:08] VITALS: BP 98/77; PULSE 102; RESP 28; O2SAT 97
--- NOTE | 2021-07-20 23:43 | PCS.PANDOC ---
PANDEMIC DOCUMENTATION INITIATED: Date: 06/06/2021 Time: 190
[2021-07-20 23:48] VITALS: BMI 39.8
[2021-07-21] VITALS (26 sets, daily range): BP systolic 92–114; BP diastolic 68–84; PULSE 77–132; RESP 14–31; TEMP 35.9–36.7; O2SAT 87–100
[2021-07-21] MEDS: Furosemide 500 MG in Empty Viaflex 50 mL 1 EACH CONT INF (00:19)
[2021-07-21] MEDS: Digoxin 250 MCG/ML Ampul 375 MCG IV (00:44)
[2021-07-21] MEDS: 0.9% Saline Lock 10 ML Syringe IV ×4 (00:45→22:05)
--- NOTE | 2021-07-21 00:47 | CPS ---
Patient was started on BiPAP at 12/6 per physician's telephone order. Noted on this pressure though, was significant decreased tidal volumes ranging in the low 200s. IPAP was increased with little resolve. Patient therefore tried on AVAPS which also didn't help with patient's apneas and decreased tidal volumes. DRY CANS BACK TENDER placed patient on 08/08 with a backup rate of 16 to help with decreased tidal volumes and apneic events observed in sleep. Possible reasons for apneas could relate to patient saying he used meth within the day prior to coming in. Patient with no noted sleep apnea history. DRY CANS BACK TENDER will monitor overnight on these settings.
[2021-07-21] MEDS: Digoxin 250 MCG/ML Ampul IV ×2 (05:23→12:02)
[2021-07-21 06:35] LABS: ALB/GLOB Ratio 0.5 RATIO (0.9-2.4); AST(SGOT) 73 U/L (15-37); Alanine Aminotransfer ALT/SGPT 469 U/L (16-61); Albumin, Serum 2.5 g/dL (3.2-5.0); Alkaline Phosphatase 139 U/L (45-117); Anion Gap 11 (5-15); BUN 33 mg/dL (7-18); BUN/Creat Ratio 23.2 RATIO (10-20); Calcium,Total 8.5 mg/dL (8.5-10.1); Chloride 96 mmol/L (98-107); Creatinine, Serum 1.42 mg/dL (0.70-1.30); EST Glomerular Filtration Rate 55 mL/min (>60); Est Glom Filt Rate - Afr Amer 66 mL/min (>60); Estimated Creatinine Clearance 55.53 ml/min; Globulin 4.8 g/dL (2.2-4.2); Glucose 89 mg/dL (74-106); Potassium 3.8 mmol/L (3.5-5.1); Protein, Total 7.3 g/dL (6.4-8.2); Sodium Level 130 mmol/L (136-145)
[2021-07-21] MEDS: Metoprolol(XL)Succ 25 MG Tablet 12.5 MG PO (09:11)
[2021-07-21] MEDS: Clopidogrel Bisulfate 75 MG Tablet PO (09:12)
[2021-07-21] MEDS: Aspirin E.C. 81 MG Tablet PO (09:12)
--- NOTE | 2021-07-21 11:35 | CASEMGMT ---
[place] assessment: Face to Face with patient for initial transition planning/care coordination assessment. [place] introduced self and role at [facility], pt voices understanding and consents to assessment. Pt is sitting up on side of bed in no distress on 2L nc at this time. Pt is A/Ox4 and answers all questions appropriately. Care providers, pharmacy, and demographics verified. Presentation: Pt c/o increased SOB over last several days, swollen legs and 12 lbs weight gain Admitting dx: Acute on Chronic resp failure w/ reduced EF PCP: BEBE Russell in [place] Specialists: Pt states no current specialists. Preferred Pharmacy: [facility] [place] Insurance: [facility] Prescription Benefit: [facility] Living Will/HPOA: Pt states does not have LW/HPOA and declines AD info. LNOK: Franny Gordon, sig other Living Arrangements: Pt states lives with sig other in 1 story home and states no concerns at home. Pt is independent with ADL's. Transportation: Pt states drives self and states no transportation concerns. DME/HHC: Pt states has a oxygen concentrator 'from a friend' and wears it when he feels like it. Pt states no need for any further DME. Pt states no hx of HHC or SNF. Pt states no concerns with going home at time of discharge. Pt states is retired. Pt states smokes 1/2 pack cigarettes daily and occasionally drinks ETOH. Pt states has recently cut down ETOH use. Pt states no further concerns/needs. CM to follow for home oxygen qualification and any further discharge planning/needs. Pt Goal: Home Plan: [place]
--- NOTE | 2021-07-21 13:02 | PCM.PN.HOSP ---
Documented by User: Marty HOLLINS 07/21/21 13:15 Subjective Subjective Patient is a 56-year-old male comfortably resting in bed. Unable to have discussion with patient as patient was deeply asleep upon my examination and did not awaken when prompted. Objective Data Objective Data Vital Signs: Vital Signs Temp Pulse Resp BP Pulse Ox 97.6 F L 91 18 102/82 H 96 07/21/21 09:10 07/21/21 12:02 07/21/21 09:10 07/21/21 12:01 07/21/21 09:10 Oxygen Flow Rate (L/min) 2 Oxygen Delivery Method Nasal Cannula Weight: 263 lb 0.183 oz Body Mass Index (BMI) 39.8 Intake & Output: Intake and Output for Last 24 Hours 07/19/21 07/20/21 07/21/21 23:59 23:59 23:59 Intake Total 414.33 / 414.33 Output Total 1450 / 1450 Balance -1035.67 / -1035.67 Lab / Micro Data Result Diagrams: 07/20/21 21:05 07/21/21 05:40 Labs: Laboratory Results - last 24 hr 07/20/21 21:05: WBC 7.9, RBC 4.48 L, Hgb 13.2, Hct 41.4, MCV 92.4, MCH 29.5, MCHC 31.9 L, RDW Std Deviation 53.8 H, RDW Coeff of Jayna 16.1 H, Plt Count 303, MPV 9.2, Immature Gran % (Auto) 0.500, Neut % (Auto) 62.3, Lymph % (Auto) 27.4, [place] % (Auto) 7.9, Eos % (Auto) 0.9, Baso % (Auto) 1.0, Absolute Neuts (auto) 4.9, Absolute Lymphs (auto) 2.17, Nucleated RBC % 0 07/20/21 21:05: PT 32.3 H, INR 3.2, APTT 42.5 H 07/20/21 21:05: Sodium 130 L, Potassium 4.3, Chloride 96 L, Carbon Dioxide 24.0, Anion Gap 10, BUN 34 H, Creatinine 1.46 H, Estim Creat Clear Calc 54.01, Est GFR (MDRD) Af Amer 64, Est GFR (MDRD) Non-Af 53 L, BUN/Creatinine Ratio 23.3 H, Glucose 95, Calcium 8.5, Magnesium 2.3, Total Bilirubin 1.80 H, AST 91 H, ALT 514 H, Alkaline Phosphatase 142 H, Troponin I High Sens 41, Total Protein 7.5, Albumin 2.5 L, Globulin 5.0 H, Albumin/Globulin Ratio 0.5 L 07/20/21 21:05: B-Natriuretic Peptide 1564.7 H 07/21/21 05:40: Sodium 130 L, Potassium 3.8, Chloride 96 L, Carbon Dioxide 23.0, Anion Gap 11, BUN 33 H, Creatinine 1.42 H, Estim Creat Clear Calc 55.53, Est GFR (MDRD) Af Amer 66, Est GFR (MDRD) Non-Af 55 L, BUN/Creatinine Ratio 23.2 H, Glucose 89, Calcium 8.5, Total Bilirubin 1.70 H, AST 73 H, ALT 469 H, Alkaline Phosphatase 139 H, Total Protein 7.3, Albumin 2.5 L, Globulin 4.8 H, Albumin/Globulin Ratio 0.5 L Radiography Diagnostic Testing: Radiology Impression Chest X-Ray 07/20/21 21:24 IMPRESSION: Cardiomegaly with right basilar airspace disease suspicious for pneumonia. at 2212 Reported and signed by: Reymundo Patino MD Electronically Signed: Reymundo Patino MD at 22:11 EDT Tel , Service support , Physical Exam Const alert, oriented x3 and no apparent distress HEENT head/scalp atraumatic and moist oral mucous membranes Head and Scalp: normocephalic Eyes PERRL, EOMs intact bilaterally and conjunctivae normal Neck no lymphadenopathy, supple and no JVD Resp normal respiratory effort, normal air movement, no retractions and no use of accessory muscles Auscultation: diminished lung sounds Cardio regular rate, regular rhythm, no murmurs and no JVD GI normal to inspection, nondistended, normoactive bowel sounds, soft to palpation and non-tender Extremity normal to inspection, full ROM and no clubbing, cyanosis or edema Skin no rashes or lesions noted, no wounds and skin turgor normal Neuro CN's II-XII intact bilaterally Psych affect normal Assessment & Plan Assessment/Plan (1) Acute heart failure: (2) CHF (congestive heart failure): PLAN: Day 1 Discharge planning: Current plan is for patient to discharge home when medically ready. 1) acute on chronic CHF exacerbation with reduced EF On admission BNP was elevated to 1564.7. Chest x-ray admission demonstrated cardiomegaly with blunting of the right costophrenic angle and diffuse pulmonary congestion. Echocardiogram obtained on 05/13/2021 demonstrated an EF of 35%. Currently satting 90% on 2 L via nasal cannula. Home medication regimen includes Lasix 40 mg p.o. daily and lisinopril 5 mg p.o. daily. Not currently on beta-zakia at home. Plan; BiPAP ordered, O2 per protocol, continue Lasix drip, metoprolol succinate 12.5 mg p.o. twice daily ordered, hold lisinopril. 2) A. fib with RVR Magnesium and potassium within normal limits. Patient on Xarelto for anticoagulation. Not currently on any rate controlling medications. 3) BRIEN Creatinine currently 1.42, 1.46 on admission. Likely secondary to cardiorenal syndrome. Continue to trend BMP. 4) hyponatremia Likely secondary to #1. Continue to trend BMP. 5) alcoholism Patient reported drinking about 30 beers per day on admission, although endorses that he had significantly reduce his drinking as of late. CIWA protocol initiated. 6) tobacco abuse Cessation encouraged. DVT prophylaxis - Xarelto Patient seen by Marty Moore PA-C, under the supervision of Dr. Kilpatrick. Documented by User: Dr. Delma Kilpatrick DO 07/21/21 18:04 Subjective Subjective This patient was seen in conjunction with GUNJAN Mccormack. The following represents my independent history and physical examination. Please see below for addendum of the above. Patient is sleeping and will not wake up for my exam. Per nursing he has been fine earlier. He has a known history of leaving AMA and not wanting to talk to clinical staff. Objective Data Lab / Micro Data Result Diagrams: 07/20/21 21:05 07/21/21 05:40 Physical Exam Const Constitutional Narrative: Patient is lying in bed sleeping, appears comfortable, nontoxic Nutritional Appearance: overweight HEENT head/scalp atraumatic Head and Scalp: normocephalic Resp normal respiratory effort, no retractions and no use of accessory muscles Resp Narrative: Bilateral scattered crackles Auscultation: crackles Cardio regular rate, regular rhythm, S1 normal heart sound, S2 normal heart sound, no murmurs, no rub, no gallops, no clicks and no JVD GI normal to inspection, nondistended, normoactive bowel sounds, soft to palpation, non-tender and non-distended Extremity Extremity Narrative: 1-2+ bilateral lower extremity pitting edema, no cyanosis or clubbing, feet are extremely dirty General Extremity: edema Peripheral Pulses: Yes pulses 2+ throughout Neuro Neuro Narrative: Sleeping and unable to examine Assessment & Plan Assessment/Plan (1) Acute heart failure: (2) Atrial fibrillation with RVR: (3) BRIEN (acute kidney injury): (4) Transaminitis: PLAN: Assessment: Acute on chronic HFrEF -EF is 35% on 05/13/2021 New onset A. fib with RVR BRIEN Hyponatremia Transaminitis Hyperbilirubinemia History of ventricular tachycardia CAD status post PCI 05/10/2021 Hyperlipidemia Illicit drug use Tobacco abuse Medical noncompliance Plan: Continue Lasix drip but increase to 10 Increase beta-zakia from 12.5 to 25 mg twice daily Suspect cardiorenal syndrome and passive hepatic congestion secondary to heart failure with regards to elevated serum creatinine and transaminases Check urine tox screen Supplemental oxygen as needed Monitor closely for alcohol withdrawal Continue Xarelto If patient still having tachycardia consider cardiology consultation Repeat echocardiogram If LFTs do not improve with diuresis and decreasing passive congestion would consider further work-up ALT is markedly elevated over AST Charges/Coding Visit Charges Inpatient E&M: 39022 Subs Hosp L2
[2021-07-21] MEDS: Rivaroxaban 20 MG Tablet PO (18:26)
[2021-07-21] MEDS: Atorvastatin Calcium 80 MG Tablet PO (20:43)
[2021-07-21] MEDS: Metoprolol(XL)Succ 25 MG Tablet PO (20:43)
--- NOTE | 2021-07-21 22:02 | CPS ---
Patient transitioned to AVAPS BiPAP mode for increased SOB on regular BiPAP settings. Patient explains that he continues to gasp for air. EVENT SECURITY OFFICER noted periods of shallowing breathing with sleep and waking with gasping respirations.
[2021-07-21] MEDS: MELATONIN 3 MG TABLET PO (22:05)
[2021-07-21] MEDS: LORazepam 2 MG/ML Syringe IV (22:05)
[2021-07-21 22:31] LABS: Amphetamine Urine VISTA POSITIVE (<1000 ng/mL); Barbiturate Urine VISTA NEGATIVE (< 200 ng/mL); Benzodiazepine Urine VISTA NEGATIVE (< 200 ng/mL); Cocaine Urine VISTA NEGATIVE (< 300 ng/mL); Ecstacy Urine VISTA NEGATIVE (< 500 ng/mL); Methadone Urine VISTA NEGATIVE (< 300 ng/mL); PCP Urine VISTA NEGATIVE (< 25 ng/mL); THC Urine VISTA NEGATIVE (< 50 ng/mL); Vista UDS pH Range 5
[2021-07-22] VITALS (9 sets, daily range): BP systolic 99–133; BP diastolic 61–99; PULSE 75–136; RESP 14–18; TEMP 36.4–36.8; O2SAT 92–100
[2021-07-22] MEDS: Metoprolol Tartrate 5 MG/5 ML Vial IV (01:18)
[2021-07-22] MEDS: 0.9% Saline Lock 10 ML Syringe IV (01:18)
[2021-07-22 07:36] LABS: Absolute Lymphocyte Count 2.38 X10^3/uL (0.83-4.51); Absolute Neutrophil Count 5.8 X10^3/uL (2.0-7.7); Basophil# 0.05 X10^3/uL; Basophil% 0.6 % (0-1); Eosinophil# 0.06 X10^3/uL; Eosinophils% 0.7 % (0-5); Hemoglobin 13.1 g/dL (13.0-16.5); Lymphocyte # 2.38 X10^3/ul (0.83-4.51); Lymphocyte % 26.3 % (19-41); Mean Corpuscular Hgb 29.5 pg (27.0-32.0); Mean Corpuscular Volume 92.3 fL (80-94); Mean Platelet Vol. 9.2 fl (6.2-12.0); Monocyte# 0.69 X10^3/uL; Monocyte% 7.6 % (0-10); NRBC Flagged by Analyzer 0 % (0-5); Neutrophil # 5.84 X10^3/uL (2.7-7.7); Neutrophil % 64.5 % (47-70); Platelet Count 290 K/mm3 (150-450); RBC Distribution Width CV 15.9 % (11.6-14.6); RBC Distribution Width SD 53.2 fl (35.1-43.9); Red Blood Count 4.44 M/mm3 (4.6-6.2); White Blood Count 9.1 K/mm3 (4.4-11.0)
[2021-07-22 07:59] LABS: Anion Gap 9 (5-15); BUN 31 mg/dL (7-18); BUN/Creat Ratio 21.7 RATIO (10-20); Calcium,Total 8.7 mg/dL (8.5-10.1); Chloride 94 mmol/L (98-107); Creatinine, Serum 1.43 mg/dL (0.70-1.30); EST Glomerular Filtration Rate 54 mL/min (>60); Est Glom Filt Rate - Afr Amer 66 mL/min (>60); Estimated Creatinine Clearance 55.14 ml/min; Glucose 70 mg/dL (74-106); Potassium 3.3 mmol/L (3.5-5.1); Sodium Level 133 mmol/L (136-145)
[2021-07-22] MEDS: Aspirin E.C. 81 MG Tablet PO (09:31)
[2021-07-22] MEDS: Metoprolol(XL)Succ 25 MG Tablet PO (09:31)
[2021-07-22] MEDS: Clopidogrel Bisulfate 75 MG Tablet PO (09:31)
--- NOTE | 2021-07-22 11:03 | DCINST_ITS ---
Discharge Instructions Diet Discharge Diet: No restrictions Activity Discharge Activity: Return to Normal Activity Weight Bearing Status: Weight bearing as tolerated Dressing / Incision Call your doctor if you observe: Fever of 101 or Higher, Numbness or Tingling, Shortness of breath, Dizziness, Chest pain, Increased palpitations (irregular heartbeat) and Calf discomfort Follow Up Care Please Follow Up With: Primary care provider When: Within the next two weeks. Test Results: Test results from this visit will be discussed in further detail at your follow-up appointment, if applicable. Discharge Plan Admission Admit Date/Time: 07/20/21 22:29 Primary Reason for Your Visit: Shortness of breath and cough Attending Provider: Manas Kam Primary Care Provider: Tosha Russell NP Discharge Orders/Prescriptions Prescriptions: New metoprolol succinate [Toprol XL] 50 mg tablet extended release 24 hr 50 mg PO BID Qty: 60 RF: 0 furosemide [Lasix] 40 mg tablet 40 mg PO BID Qty: 60 RF: 0 Continued aspirin [Adult Low Dose Aspirin] 81 mg tablet,delayed release (DR/EC) 81 mg PO DAILY Qty: 90 RF: 3 clopidogrel 75 mg tablet 75 mg PO DAILY RF: 0 lisinopril 5 mg tablet 5 mg PO DAILY RF: 0 rosuvastatin 40 mg tablet 40 mg PO DAILY RF: 0 Xarelto 20 mg tablet 20 mg PO DAILY RF: 0 Discontinued furosemide [Lasix] 40 mg tablet 40 mg PO DAILY RF: 0 Referrals / Follow Up: Tosha Russell NP, MANUFACTURING QUALITY MANAGER-C [Primary Care Provider] - Within 2 Weeks Disposition Disposition (needs filled in before D/C Order can be placed): Home, Self Care
--- NOTE | 2021-07-22 11:25 | CASEMGMT ---
Per physicians, pt is non-adherent most of time with meds, diet, etc. Pt has concentrator at home from friend and wears when he feels it's necessary. Pt is not willing for nursing to complete oxygen testing and states he is fine with his oxygen at home. Pt is anxious to leave and declines need for any further resources. Munira BUTTERFIELD CM
--- NOTE | 2021-07-22 13:35 | DS.PCM_ITS ---
Documented by User: Marty HOLLINS 07/22/21 13:42 Providers Date of Admission: 07/20/21 Primary Care Physician: ELVIRA Allen Reason For Visit: ACUTE ON CHRNOIC HEART FAILURE WITH REDUCED EF; Diagnosis Discharge Diagnosis (1) Acute heart failure: Status: Acute Code(s): I50.9 - Heart failure, unspecified (2) Atrial fibrillation with RVR: Status: Acute Code(s): I48.91 - Unspecified atrial fibrillation (3) BRIEN (acute kidney injury): Status: Acute Code(s): N17.9 - Acute kidney failure, unspecified (4) Transaminitis: Status: Acute Code(s): R74.01 - Elevation of levels of liver transaminase levels Medications at Discharge Home Medications aspirin 81 mg tablet,delayed release 81 mg PO DAILY #90 tab 07/15/21 Xarelto 20 mg PO DAILY 07/21/21 clopidogrel 75 mg PO DAILY 07/21/21 lisinopril 5 mg PO DAILY 07/21/21 rosuvastatin 40 mg PO DAILY 07/21/21 furosemide [Lasix] 40 mg PO BID #60 tab 07/22/21 metoprolol succinate [Toprol XL] 50 mg PO BID #60 tab 07/22/21 spironolactone 25 mg PO DAILY #30 tab 07/22/21 Hospital Course Procedures Transthoracic echo Summary of Care Provided Minutes Spent on Discharge: 35 Hospital Course: Disposition: Patient to be discharged home.. 1) acute on chronic CHF exacerbation with reduced EF Advised patient that he should remain admitted for continued administration of IV medications, however patient requested to leave today due to prior obligations. Attempted to obtain new echocardiogram, however patient was uncooperative and evaluation was not able to be obtained. On admission BNP was elevated to 1564.7. Chest x-ray admission demonstrated cardiomegaly with blunting of the right costophrenic angle and diffuse pulmonary congestion. Echocardiogram obtained on 05/13/2021 demonstrated an EF of 35%. Currently satting 90% on 2 L via nasal cannula. Home medication regimen includes Lasix 40 mg p.o. daily and lisinopril 5 mg p.o. daily. Not currently on beta-zakia at home. Plan; patient discharged back home, Toprol 50 mg p.o. twice daily initiated, Lasix 40 mg p.o. twice daily initiated, low-dose aspirin initiated per cardiology, patient to follow-up with primary care provider and cardiology within the next 2 weeks. 2) A. fib with RVR Magnesium and potassium within normal limits. Patient on Xarelto for anticoagulation. Plan; as above. 3) BRIEN Creatinine currently 1.42, 1.46 on admission. Likely secondary to cardiorenal syndrome. 4) hyponatremia Likely secondary to #1, currently 133. 5) alcoholism Patient reported drinking about 30 beers per day on admission, although endorses that he had significantly reduce his drinking as of late. 6) tobacco abuse Cessation encouraged. Patient seen by Marty Moore PA-C, under the supervision of Dr. Kam. Physical Exam Const alert, oriented x3 and no apparent distress HEENT normocephalic, head/scalp atraumatic and hearing grossly normal bilaterally Eyes PERRL, EOMs intact bilaterally and conjunctivae normal Neck no lymphadenopathy, supple and no JVD Resp normal respiratory effort, normal air movement and no retractions Auscultation: diminished lung sounds Cardio regular rate, regular rhythm, no murmurs and no JVD GI normal to inspection, nondistended, normoactive bowel sounds, soft to palpation and non-tender Extremity normal to inspection, full ROM and no clubbing, cyanosis or edema Skin no wounds and skin turgor normal Neuro CN's II-XII intact bilaterally Psych affect normal Weight / BMI Weight Weight: 263 lb 0.183 oz Body Mass Index (BMI) 39.8 ABG / Lab / Microbiology Data Result Diagrams: 07/22/21 06:35 07/22/21 06:35 Laboratory: Laboratory Results - last 24 hr 07/21/21 21:51: Urine Opiates Screen NEGATIVE, Urine Methadone Screen NEGATIVE, Ur Barbiturates Screen NEGATIVE, Ur Phencyclidine Scrn NEGATIVE, Ur Amphetamines Screen POSITIVE H, U Methamphetamin-MDMA NEGATIVE, U Benzodiazepines Scrn NEGATIVE, Urine Cocaine Screen NEGATIVE, U Cannabinoids Screen NEGATIVE, Ur Drug Screen Comment 07/22/21 06:35: WBC 9.1, RBC 4.44 L, Hgb 13.1, Hct 41.0, MCV 92.3, MCH 29.5, MCHC 32.0, RDW Std Deviation 53.2 H, RDW Coeff of Jayna 15.9 H, Plt Count 290, MPV 9.2, Immature Gran % (Auto) 0.300, Neut % (Auto) 64.5, Lymph % (Auto) 26.3, [place] % (Auto) 7.6, Eos % (Auto) 0.7, Baso % (Auto) 0.6, Absolute Neuts (auto) 5.8, Absolute Lymphs (auto) 2.38, Nucleated RBC % 0 07/22/21 06:35: Sodium 133 L, Potassium 3.3 L, Chloride 94 L, Carbon Dioxide 30.0, Anion Gap 9, BUN 31 H, Creatinine 1.43 H, Estim Creat Clear Calc 55.14, Est GFR (MDRD) Af Amer 66, Est GFR (MDRD) Non-Af 54 L, BUN/Creatinine Ratio 21.7 H, Glucose 70 L, Calcium 8.7, Magnesium 2.0 D/C Instructions Discharge Diet: No restrictions Weight Bearing Status: Weight bearing as tolerated Call your doctor if you observe: Fever of 101 or Higher, Numbness or Tingling, Shortness of breath, Dizziness, Chest pain, Increased palpitations (irregular heartbeat) and Calf discomfort Please Follow Up With: Primary care provider When: Within the next two weeks. Meaningful Use Info Meaningful Use Diagnoses (Choose all that apply): CHF CHF MARY/ARB ordered at discharge?: Yes Documented LVEF (%): 40 Discharge Plan Admission Admit Date/Time: 07/20/21 22:29 Primary Reason for Your Visit: Shortness of breath and cough Attending Provider: Manas Kam Primary Care Provider: Tosha Russell INFORMATICS PHYSICIAN LIAISON Discharge Orders/Prescriptions Prescriptions: New metoprolol succinate [Toprol XL] 50 mg tablet extended release 24 hr 50 mg PO BID Qty: 60 RF: 0 furosemide [Lasix] 40 mg tablet 40 mg PO BID Qty: 60 RF: 0 spironolactone 25 mg tablet 25 mg PO DAILY Qty: 30 RF: 0 Continued aspirin [Adult Low Dose Aspirin] 81 mg tablet,delayed release (DR/EC) 81 mg PO DAILY Qty: 90 RF: 3 clopidogrel 75 mg tablet 75 mg PO DAILY RF: 0 lisinopril 5 mg tablet 5 mg PO DAILY RF: 0 rosuvastatin 40 mg tablet 40 mg PO DAILY RF: 0 Xarelto 20 mg tablet 20 mg PO DAILY RF: 0 Discontinued furosemide [Lasix] 40 mg tablet 40 mg PO DAILY RF: 0 Referrals / Follow Up: Tosha Russell INFORMATICS PHYSICIAN LIAISON, INFORMATICS PHYSICIAN LIAISON-C [Primary Care Provider] - 08/02/21 9:00 am Disposition Disposition (needs filled in before D/C Order can be placed): Home, Self Care Documented by User: Dr. Manas Kam MD 07/22/21 17:15 Providers Date of Admission: 07/20/21 Reason For Visit: ACUTE ON CHRNOIC HEART FAILURE WITH REDUCED EF; Medications at Discharge Home Medications aspirin 81 mg tablet,delayed release 81 mg PO DAILY #90 tab 07/15/21 Xarelto 20 mg PO DAILY 07/21/21 clopidogrel 75 mg PO DAILY 07/21/21 lisinopril 5 mg PO DAILY 07/21/21 rosuvastatin 40 mg PO DAILY 07/21/21 furosemide [Lasix] 40 mg PO BID #60 tab 07/22/21 metoprolol succinate [Toprol XL] 50 mg PO BID #60 tab 07/22/21 spironolactone 25 mg PO DAILY #30 tab 07/22/21 Hospital Course Summary of Care Provided Hospital Course: This patient was seen in conjunction with GUNJAN Fletcher. I have independently interviewed and examined the patient and reviewed pertinent history, examination findings, laboratory and plan of management. I have reviewed the note and agree with the documented findings with the few addition al points. In brief, patient is admitted for shortness of breath, pulmonary congestion, leg edema and elevated BNP consistent with acute on chronic systolic heart failure. Patient had 2D echo in April 2021 shows EF 35%. Patient was started on Lasix drip and was well diuresed. Lungs clear. Patient wanted to go home although was advised 1 more day of IV diuresis. Patient discharged on Lasix 40 mg p.o. twice daily along with spironolactone 25 mg daily to compensate for hypokalemia and diuresis and CHF, NYHA stage III, EF 35%. Other comorbidities include A. fib with RVR. Heart rate is controlled. Electrolytes are in normal range. On Xarelto. Acute kidney injury probably related to CHF: Advised to monitor electrolytes and kidney function with PCP. If continued elevated worse, need nephrology consult as an outpatient. Discharge medication reconciliation done. Discharge follow-up instructions completed. Discharge process discussed with the patient and all questions were answered to patient's satisfaction. Total time spent, exact 35 minutes on discharge meds reconciliation, exa mination, coordination of care with nurses and ancillary staff, review of imaging and blood test and discussion with the patient on follow-up instructions I have discussed my assessment with GUNJAN Fletcher and orders have been reviewed. Physical Exam Narrative Seen and examined. Patient was on Lasix drip discontinued in the morning. General: Alert, Oriented x3, Cooperative HEENT: Atraumatic, PERRLA, EOMI, Normocephalic Oral: No Gingival or Mucosal Lesions/ Ulcerations Neck: Supple, No JVD, Negative Carotid Bruits Lungs: Air entry diminished in bilateral lung bases. No crepitation/rhonchi Cardiovascular: Regular rate, Regular Rhythm, Normal S1, Normal S2, No murmurs Abdomen: Bowel Sounds Present, Soft, Non Tender, Non-Distended : No renal angle tenderness. No suprapubic tenderness. Extremities: Bilateral leg below-knee pitting edema, Capillary Refill Less than 3 Seconds Skin: No rashes, No breakdown Musculoskeletal: No Tenderness to Palpation of Joints or Extremities Neurological: Cranial nerves II-XII grossly intact, DTR 2+/4 and Symmetrical, Neuro grossly intact Psych/Mental Status: Normal Affect, Appropriate. ABG / Lab / Microbiology Data Result Diagrams: 07/22/21 06:35 07/22/21 06:35 Discharge Plan Admission Admit Date/Time: 07/20/21 22:29 Primary Reason for Your Visit: Shortness of breath and cough Attending Provider: Manas Kam Primary Care Provider: Tosha Russell NP Discharge Orders/Prescriptions Prescriptions: New metoprolol succinate [Toprol XL] 50 mg tablet extended release 24 hr 50 mg PO BID Qty: 60 RF: 0 furosemide [Lasix] 40 mg tablet 40 mg PO BID Qty: 60 RF: 0 spironolactone 25 mg tablet 25 mg PO DAILY Qty: 30 RF: 0 Continued aspirin [Adult Low Dose Aspirin] 81 mg tablet,delayed release (DR/EC) 81 mg PO DAILY Qty: 90 RF: 3 clopidogrel 75 mg tablet 75 mg PO DAILY RF: 0 lisinopril 5 mg tablet 5 mg PO DAILY RF: 0 rosuvastatin 40 mg tablet 40 mg PO DAILY RF: 0 Xarelto 20 mg tablet 20 mg PO DAILY RF: 0 Discontinued furosemide [Lasix] 40 mg tablet 40 mg PO DAILY RF: 0 Referrals / Follow Up: Tosha Russell NP, INFORMATICS PHYSICIAN LIAISON-C [Primary Care Provider] - 08/02/21 9:00 am Disposition Disposition (needs filled in before D/C Order can be placed): Home, Self Care Charges/Coding Visit Charges Inpatient E&M: 22539 Disch Hosp
== END 2021-07-22 13:04 | disposition home or self-care (01) | DRG 194 ==
LOC: ED 22:13 → PCU 07-21 04:08
PROVIDERS: Internal Medicine; Physician Assistant; Admitting Provider Hospitalist; Emergency Provider Emergency Medicine; PCP Nurse Practitioner Adult Health; Visit Provider Internal Medicine
DX: I13.0 Hypertensive heart and chronic kidney disease with heart failure and stage 1 through stage 4 chronic kidney disease, or unspecified chronic kidney disease (principal); I50.23 Acute on chronic systolic (congestive) heart failure; N17.9 Acute kidney failure, unspecified; I48.91 Unspecified atrial fibrillation; I25.2 Old myocardial infarction; I25.10 Atherosclerotic heart disease of native coronary artery without angina pectoris; F17.200 Nicotine dependence, unspecified, uncomplicated; F10.20 Alcohol dependence, uncomplicated; E87.1 Hypo-osmolality and hyponatremia; E87.6 Hypokalemia; R74.01 Elevation of levels of liver transaminase levels; F15.10 Other stimulant abuse, uncomplicated; Z79.899 Other long term (current) drug therapy; Z79.02 Long term (current) use of antithrombotics/antiplatelets; Z79.01 Long term (current) use of anticoagulants; Z79.82 Long term (current) use of aspirin; Z91.19 Patient's noncompliance with other medical treatment and regimen
CPT/HCPCS: 36415; 71045; 80048; 80053; 80307; 83735; 83880; 84484; 85025; 85610; 85730; 93005; 94002; 97802; 99285; 99406; A4216; J1940

== ENCOUNTER 2021-07-23 23:18 | Inpatient (IN) | payer MEDICAID, SELFPAY ==
[2021-07-23 23:19] VITALS: PULSE 92; RESP 20; TEMP 36.2; O2SAT 78; BMI 38.9
[2021-07-23 23:22] VITALS: PULSE 92; RESP 20; TEMP 36.2; O2SAT 100
[2021-07-24] VITALS (17 sets, daily range): BP systolic 91–140; BP diastolic 56–116; PULSE 67–130; RESP 14–20; TEMP 36.4–37.1; O2SAT 93–100; BMI 38.6
--- NOTE | 2021-07-24 00:01 | EKG12_ITS ---
Test Reason : SOB Blood Pressure : / mmHG Vent. Rate : 100 BPM Atrial Rate : 278 BPM P-R Int : 000 ms QRS Dur : 114 ms QT Int : 286 ms P-R-T Axes : 000 121 220 degrees QTc Int : 368 ms Atrial flutter with variable A-V block with premature ventricular or aberrantly conducted complexes Nonspecific ST and T wave abnormality Abnormal ECG Confirmed by PIPER ROBISON, PEPITO ([id number]), film and video editor CURLY GRIMES ([id number]) on 07/25/2021 1:26:39 PM Referred By: ILSA Confirmed By:PEPITO SALDAÑA MD
--- NOTE | 2021-07-24 00:10 | EDS_ITS ---
HPI History of Present Illness Chief Complaint: Shortness of Breath Informant: patient and spouse/S.O. Onset/Context/Timing Onset: Days Context: gradual Timing: Continuous Current Severity: Mild Maximum Severity: Mild Associated Symptoms Chest Pain: Positive for None Narrative Narrative: 56-year-old male history of NC in April. He has 2 cardiac stents. He also has hypertension and high cholesterol renal insufficiency. Patient has been very compliant with his medications according to his significant other. He has a known history congestive heart failure with an EF of 35% on his last echocardiogram. He states he had increased swelling in his legs. He was admitted within the last week for similar symptoms. He denies chest pain or fever and denies having Covid. He is never had a DVT or PE. He denies any hemoptysis. PE Risk Factors: Positive for Recent immobilization; Negative for Cancer, OCP + Smoking + > 35, Prior DVT or PE, Recent surgery and Recent travel Prior similar symptoms: Yes Recent Illness/Hospitalization: Yes [facility] Medical History Acute heart failure BRIEN (acute kidney injury) Alcohol abuse Alcohol abuse Atherosclerotic heart disease of [place] coronary artery without angina pectoris Atrial fibrillation Atrial fibrillation with RVR CHF (congestive heart failure) Chronic pain Congestive heart failure (CHF) Coronary artery disease HTN (hypertension) Hypertension Illicit drug use Myocardial infarct Smoker Smoker Substance abuse Substance abuse Transaminitis Home Medications aspirin 81 mg tablet,delayed release 81 mg PO DAILY #90 tab 07/15/21 [Rx Last Taken Unknown] Xarelto 20 mg PO DAILY 07/21/21 [History Last Taken Unknown] clopidogrel 75 mg PO DAILY 07/21/21 [History Last Taken Unknown] lisinopril 5 mg PO DAILY 07/21/21 [History Last Taken Unknown] rosuvastatin 40 mg PO DAILY 07/21/21 [History Last Taken Unknown] furosemide [Lasix] 40 mg PO BID #60 tab 07/22/21 [Rx Last Taken Unknown] metoprolol succinate [Toprol XL] 50 mg PO BID #60 tab 07/22/21 [Rx Last Taken Unknown] spironolactone 25 mg PO DAILY #30 tab 07/22/21 [Rx Last Taken Unknown] Allergy/AdvReac Type Severity Reaction Status Date / Time No Known Allergies Allergy Verified 07/20/21 20:05 Family History Father COPD (chronic obstructive pulmonary disease) Mother Heart disease Hypertension Surgical History Presence of coronary angioplasty implant and graft Presence of stent in coronary artery (~05/11/21) Social History household members: none Smoking Status: Heavy Smoker (>10/day) alcohol intake: current alcohol intake frequency: 3 or more drinks per day Alcohol type: beer details: 12 pack/day- beer substance use type: methamphetamine ROS ROS ED ROS Narrative Denies recent illness. Shortness of breath and leg swelling. Review of Systems ROS Unobtainable: Denies due to encephalopathy Constitutional Constitutional ED: Denies chills or fever(s) Eyes Eyes: Denies change in vision ENT ENT ED: Denies ear pain Cardiovascular Cardiovascular: Denies chest pain Respiratory/Chest Respiratory/Chest: Reports dyspnea Gastrointestinal Gastrointestinal: Denies abdominal pain, diarrhea, nausea or vomiting Genitourinary Genitourinary ED: Denies dysuria Musculoskeletal Musculoskeletal: Denies myalgias Integumentary Denies rash Neurologic Neurologic: Denies headache(s) Psychiatric Psychiatric: Denies depression Endocrine Endocrinology: Denies polyuria Hematologic/Lymphatic Hematologic/Lymphatic: Denies easy bruising Allergic/Immunologic Allergic/Immunologic ED: Denies urticaria EXAM Physical Exam Narrative Exam Narrative: Middle-age male no acute distress. Initial presentation his pulse ox is 78% on room air he is hypoxic. He is not on home O2. HEENT exam unremarkable. Neck nontender no JVD. No lymphadenopathy. Lungs coarse breath sounds but clear bilaterally. Heart regular rhythm rate about 90 I do not appreciate any murmur. Abdomen soft nontender. Moving all 4 extremities. 1+ pitting edema both lower extremities. Equal symmetrical. Calves are nontender. No cords. Neurologically is awake and alert with no focal motor deficits. Const Vital Signs: 07/23/21 23:19 07/23/21 23:22 07/24/21 00:13 Temperature 97.2 F L 97.2 F L Temperature Source Temporal Temporal Pulse Rate 92 92 92 Respiratory Rate 20 H 20 H 18 Respiratory Effort Blood Pressure Blood Pressure Mean Pulse Ox 78 100 Oxygen Delivery Method Room Air Nasal Cannula Oxygen Flow Rate (L/min) 4 07/24/21 01:03 07/24/21 01:06 07/24/21 02:00 Temperature Temperature Source Pulse Rate 92 78 Respiratory Rate 16 16 Respiratory Effort Short of Breath Blood Pressure 104/74 107/78 Blood Pressure Mean 84 87 Pulse Ox 100 Oxygen Delivery Method Nasal Cannula Room Air Room Air Oxygen Flow Rate (L/min) 4 4 Positive well nourished and well developed; Negative for cachectic, contractures or unkempt General Appearance ED: well developed and NAD; Negative for unkempt, cachectic or contractures Nutritional Appearance: Negative for cachectic HEENT Reports moist mucous membranes atraumatic; Negative for trauma Eyes PERRL and EOMs intact bilaterally Neck no lymphadenopathy, supple, no meningeal signs and no JVD General: Negative for tenderness Resp normal respiratory effort and clear to auscultation bilaterally Auscultation: Negative for rales, rhonchi or wheezes Cardio regular rate, regular rhythm, S1 normal heart sound, S2 normal heart sound and no murmurs GI non-tender, non-distended and no masses Auscultation: normoactive bowel sounds Palpation: soft; Negative for tender, guarding or rebound tenderness present Back/Spine normal to inspection Extremity Negative for normal to inspection Extremity Narrative: 1+ pitting edema bilaterally. Nontender. General Extremety ED: Yes edema; Negative for tenderness General Extremity: edema Neuro oriented x3 Sensorium / Orientation: alert, oriented to person, oriented to place and oriented to time; Negative for orientation impaired, confused or lethargic Motor Exam: strength 5/5 throughout Psych mental status grossly normal Appearance: Negative for unkempt Thought Process: normal thought process Skin Lesions: no lesions Rashes: no rashes MDM MDM MDM Narrative Medical decision making narrative: 56-year-old male prior NC with cardiac stents. Noncompliant with his meds. Probably also has underlying COPD. Presents dyspneic, hypoxic. Undergoing cardiac and pulmonary work-up. He will be treated with aerosols. Repeat exam minimal change. Patient requires oxygen also need to be set up for home. I think most of this problem is congestive heart failure. He has been noncompliant with his medications. He will be treated with Lasix here. There is also a question about pneumonia on chest x-ray. My interpretation of this is not pneumonia. He is got no white count no fever. Skin a similar recent chest x-ray. I will speak to the hospitalist about admission. Lab Data Attestation: I reviewed the patient's lab results. Lab results narrative: CBC shows a white count 8.4. Hemoglobin 11.7. Electrolytes sodium 131 potassium 3.1. Gap of 8. Creatinine 1.38. Glucose 97. Troponin is 64. BNP is elevated at 1762. Patient is on Coumadin his INR is elevated at 4.0. Labs: Laboratory Results - last 24 hr 07/24/21 07/24/21 07/24/21 00:25 00:25 00:25 WBC 8.4 RBC 4.00 L Hgb 11.7 L Hct 36.9 L MCV 92.3 MCH 29.3 MCHC 31.7 L RDW Std Deviation 53.1 H RDW Coeff of Jayna 15.9 H Plt Count 241 MPV 9.2 Immature Gran % (Auto) 0.400 Neut % (Auto) 62.6 Lymph % (Auto) 27.9 [place] % (Auto) 7.5 Eos % (Auto) 0.8 Baso % (Auto) 0.8 Absolute Neuts (auto) 5.3 Absolute Lymphs (auto) 2.34 Nucleated RBC % 0 PT INR Sodium 131 L Potassium 3.1 L Chloride 95 L Carbon Dioxide 28.0 Anion Gap 8 BUN 29 H Creatinine 1.38 H Estim Creat Clear Calc 57.14 Est GFR (MDRD) Af Amer 68 Est GFR (MDRD) Non-Af 56 L BUN/Creatinine Ratio 21.0 H Glucose 97 Calcium 8.5 Troponin I High Sens 64 B-Natriuretic Peptide 1762.9 H 07/24/21 00:25 WBC RBC Hgb Hct MCV MCH MCHC RDW Std Deviation RDW Coeff of Jayna Plt Count MPV Immature Gran % (Auto) Neut % (Auto) Lymph % (Auto) [place] % (Auto) Eos % (Auto) Baso % (Auto) Absolute Neuts (auto) Absolute Lymphs (auto) Nucleated RBC % PT 37.8 H INR 4.0 H* Sodium Potassium Chloride Carbon Dioxide Anion Gap BUN Creatinine Estim Creat Clear Calc Est GFR (MDRD) Af Amer Est GFR (MDRD) Non-Af BUN/Creatinine Ratio Glucose Calcium Troponin I High Sens B-Natriuretic Peptide Radiography Chest X-Ray - ED: 1 View, Read by ED Physician, Heart, Lungs, Mediastinum, Bony Structures, No Acute Disease and Chronic Changes Diagnostic Testing: Radiology Impression Chest X-Ray 07/24/21 00:29 IMPRESSION: Bibasilar pneumonia. Electronically Signed: David Lobato MD at 0:45 EDT Tel , Service support , Portable single view chest x-ray shows chronic changes. Radiologist's reading is bibasilar pneumonia I would disagree with that. Rhythm Strip Rhythm Strip: Sinus Rhythm Rate: 100 Ectopy: PVC(s) EKG Initial EKG: Attestation: I personally reviewed and interpreted this EKG as follows: Interpretation: Sinus Rhythm and No Acute Injury Pattern Comments: Sinus rhythm rate of 100 with PVCs. The EKG machine is read this is atrial flutter with general think that this is. Similar to a recent EKG . Prior EKG tracings: available for review Prior: Unchanged Discharge Plan Triage Chief Complaint: Shortness of Breath ED Provider: Krystian Lynn Dx/Rx/DC Orders Clinical Impression: Hypoxia, CHF (congestive heart failure), History of atherosclerotic heart disease, Non-compliance, COPD exacerbation Prescriptions: No Action aspirin [Adult Low Dose Aspirin] 81 mg tablet,delayed release (DR/EC) 81 mg PO DAILY Qty: 90 RF: 3 clopidogrel 75 mg tablet 75 mg PO DAILY RF: 0 lisinopril 5 mg tablet 5 mg PO DAILY RF: 0 rosuvastatin 40 mg tablet 40 mg PO DAILY RF: 0 Xarelto 20 mg tablet 20 mg PO DAILY RF: 0 metoprolol succinate [Toprol XL] 50 mg tablet extended release 24 hr 50 mg PO BID Qty: 60 RF: 0 furosemide [Lasix] 40 mg tablet 40 mg PO BID Qty: 60 RF: 0 spironolactone 25 mg tablet 25 mg PO DAILY Qty: 30 RF: 0 Primary Care Provider: Tosha Russell NP Referrals: Tosha Russell NP, BI DATA ARCHITECT-C [Primary Care Provider] - Disposition Disposition: Acute Care [facility]
[2021-07-24] MEDS: Albuterol 2.5 MG/3 ML VIAL.NEB. INHALATION (00:13)
[2021-07-24] MEDS: Ipratropium/Albuterol Sulfate 3 ML AMPUL.NEB INHALATION (00:13)
--- NOTE | 2021-07-24 00:29 | RAD_ITS ---
STUDY: X-RAY CHEST REASON FOR EXAM: Male, 56 years old. Chest pain TECHNIQUE: Portable, upright, AP chest radiograph COMPARISON: 07/20/2021 FINDINGS: Right basilar consolidative opacity. There is no demonstrated pleural abnormality. There is borderline cardiomegaly. Normal mediastinum and abelardo. Normal visualized pulmonary arteries. Normal visualized aortic arch and descending thoracic aorta. There are diffuse degenerative changes of the visualized thoracic spine. There is degenerative osteoarthritis of the bilateral shoulders. There is no demonstrated abnormality of the visualized soft tissue structures of the upper abdomen. RAD/Chest 1 View (Portable) IMPRESSION: Bibasilar pneumonia. Electronically Signed: David Lobato MD at 0:45 EDT Tel , Service support ,
[2021-07-24 00:35] LABS: Absolute Lymphocyte Count 2.34 X10^3/uL (0.83-4.51); Absolute Neutrophil Count 5.3 X10^3/uL (2.0-7.7); Basophil# 0.07 X10^3/uL; Basophil% 0.8 % (0-1); Eosinophil# 0.07 X10^3/uL; Eosinophils% 0.8 % (0-5); Hematocrit 36.9 % (40-54); Hemoglobin 11.7 g/dL (13.0-16.5); Lymphocyte # 2.34 X10^3/ul (0.83-4.51); Lymphocyte % 27.9 % (19-41); Mean Corp Hgb Conc 31.7 g/dL (32-36); Mean Corpuscular Hgb 29.3 pg (27.0-32.0); Mean Corpuscular Volume 92.3 fL (80-94); Mean Platelet Vol. 9.2 fl (6.2-12.0); Monocyte# 0.63 X10^3/uL; Monocyte% 7.5 % (0-10); NRBC Flagged by Analyzer 0 % (0-5); Neutrophil # 5.25 X10^3/uL (2.7-7.7); Neutrophil % 62.6 % (47-70); Platelet Count 241 K/mm3 (150-450); RBC Distribution Width CV 15.9 % (11.6-14.6); RBC Distribution Width SD 53.1 fl (35.1-43.9); White Blood Count 8.4 K/mm3 (4.4-11.0)
[2021-07-24 00:45] LABS: Prothrombin Time (Protime)PT. 37.8 SECONDS (11.7-14.9)
[2021-07-24 00:53] LABS: BNP,B-Type NATRIURETIC PEPTIDE 1762.9 pg/mL (0-100)
[2021-07-24 00:57] LABS: Anion Gap 8 (5-15); BUN 29 mg/dL (7-18); Calcium,Total 8.5 mg/dL (8.5-10.1); Chloride 95 mmol/L (98-107); Creatinine, Serum 1.38 mg/dL (0.70-1.30); EST Glomerular Filtration Rate 56 mL/min (>60); Est Glom Filt Rate - Afr Amer 68 mL/min (>60); Estimated Creatinine Clearance 57.14 ml/min; Glucose 97 mg/dL (74-106); Potassium 3.1 mmol/L (3.5-5.1); Sodium Level 131 mmol/L (136-145); Troponin-I HS 64 pg/mL (3.0-78.0)
[2021-07-24] MEDS: MethylPREDNISolone 125 MG/2 ML Vial IV (03:15)
[2021-07-24] MEDS: Furosemide 100 MG/10 ML Vial 40 MG IV (03:16)
--- NOTE | 2021-07-24 03:26 | HP.PCM.HOS_ITS ---
HPI - General General Date of Admission: 07/24/21 Date of Service: 07/24/21 Chief Complaint: Shortness of breath HPI Narrative KOURTNEY ELIZABETH, is a 56 M with a significant history of CAD status post stent; alcoholism; methamphetamine abuse; atrial fibrillation; heart failure with reduced ejection fraction who presents to the emergency department with progressively worsening SOB that re-occurred a day before this presentation. Associated with his symptoms is fatigue; weakness; orthopnea and paroxysmal nocturnal dyspnea. He reports about 30 pounds weight gain within 3 days. Patient was too short of breath that he borrowed a friend home oxygen to use. Patient is an alcoholic but he has reduced significantly the amount of alcohol he takes. Also he has cut down his use of methamphetamine and tobacco. His significant other reports that patient has episodes of confusion and staring. Patient was admitted to hospital on 07/20/2021 and discharged on 07/22/2021 for heart failure with reduced EF and Afib with RVR. [facility], [facility] Medical History (Updated 07/24/21 @ 04:[address] Ángel Abreu MD) Acute heart failure BRIEN (acute kidney injury) Alcohol abuse Alcohol abuse Atherosclerotic heart disease of [place] coronary artery without angina pectoris Atrial fibrillation Atrial fibrillation with RVR CHF (congestive heart failure) Chronic pain Congestive heart failure (CHF) Coronary artery disease HTN (hypertension) Hypertension Illicit drug use Myocardial infarct Smoker Smoker Substance abuse Substance abuse Transaminitis Home Medications aspirin 81 mg tablet,delayed release 81 mg PO DAILY #90 tab 07/15/21 [Rx Last Taken Unknown] Xarelto 20 mg PO DAILY 07/21/21 [History Last Taken Unknown] clopidogrel 75 mg PO DAILY 07/21/21 [History Last Taken Unknown] lisinopril 5 mg PO DAILY 07/21/21 [History Last Taken Unknown] rosuvastatin 40 mg PO DAILY 07/21/21 [History Last Taken Unknown] furosemide [Lasix] 40 mg PO BID #60 tab 07/22/21 [Rx Last Taken Unknown] metoprolol succinate [Toprol XL] 50 mg PO BID #60 tab 07/22/21 [Rx Last Taken Unknown] spironolactone 25 mg PO DAILY #30 tab 07/22/21 [Rx Last Taken Unknown] Allergy/AdvReac Type Severity Reaction Status Date / Time No Known Allergies Allergy Verified 07/20/21 20:05 Family History Father COPD (chronic obstructive pulmonary disease) Mother Heart disease Hypertension Surgical History Presence of coronary angioplasty implant and graft Presence of stent in coronary artery (~05/11/21) Social History household members: none Smoking Status: Heavy Smoker (>10/day) alcohol intake: current alcohol intake frequency: 3 or more drinks per day Alcohol type: beer details: 12 pack/day- beer substance use type: methamphetamine ROS ROS Narrative Constitutional: Reports fatigue and increasing weight. Denies fever, chills. Eyes: Denies blurry vision, change in eye color, change in vision, discharge from eye(s), double vision, erythema, eye pain, loss of vision or other HEENT: Denies abnormal hearing, dysphagia, ear pain, epistaxis, headache(s), hearing loss, nasal congestion, nasal discharge, post nasal drip, sinus pressure, sore throat or other Cardiovascular: Denies chest pain or palpitations. Reports dyspnea on exertion, orthopnea and paroxysmal nocturnal dyspnea. Reports edema of legs. Respiratory/Chest: Reports cough, phlegm production, shortness of breath. Denies wheezes Gastrointestinal: Denies abdominal pain, coffee ground emesis, constipation, diarrhea, dyspepsia, hematemesis, hematochezia, loose stools, melena, nausea, vomiting or other Genitourinary: Denies burning urination, difficulty urinating, dysuria, hematuria, nocturia, urinary frequency, urinary hesitancy, urinary incontinence, urinary urgency or other Musculoskeletal: Denies arthralgias, back pain, joint pain, joint stiffness, joint swelling, myalgias, neck pain or other Neurologic: Denies abnormal gait, abnormal speech, confusion, disequilibrium, dizziness, focal weakness, headache(s), numbness, paresthesias, seizure-like activity, seizures, syncope, tingling, tremor(s) or other Psychiatric: Denies anxiety, depression, homicidal ideation, suicidal ideation or other Endocrinology: Denies change in body appearance, cold intolerance, excessive sweating, heat intolerance, polydipsia, polyuria or other Hematologic/Lymphatic: Denies anemia, easy bleeding, easy bruising, lymphadenopathy or other Integumentary: Denies rashes Allergic/Immunologic: Denies rhinitis, hives, eczema, asthma or other Vital Signs Vital Signs Vital Signs: 07/23/21 23:19 07/23/21 23:22 07/24/21 00:13 Temperature 97.2 F L 97.2 F L Temperature Source Temporal Temporal Pulse Rate 92 92 92 Respiratory Rate 20 H 20 H 18 Respiratory Effort Blood Pressure Blood Pressure Mean Pulse Ox 78 100 Oxygen Delivery Method Room Air Nasal Cannula Oxygen Flow Rate (L/min) 4 07/24/21 01:03 07/24/21 01:06 07/24/21 02:00 Temperature Temperature Source Pulse Rate 92 78 Respiratory Rate 16 16 Respiratory Effort Short of Breath Blood Pressure 104/74 107/78 Blood Pressure Mean 84 87 Pulse Ox 100 Oxygen Delivery Method Nasal Cannula Room Air Room Air Oxygen Flow Rate (L/min) 4 4 07/24/21 03:20 Temperature 98.2 F Temperature Source Temporal Pulse Rate 92 Respiratory Rate 16 Respiratory Effort Blood Pressure 91/66 Blood Pressure Mean 74 Pulse Ox 95 Oxygen Delivery Method Nasal Cannula Oxygen Flow Rate (L/min) 4 Weight Weight: 116.3 kg Body Mass Index (BMI) 38.9 Physical Exam Narrative Physical exam: General: Well-nourished, well-developed. Head: Normocephalic, atraumatic, no tenderness Eyes: PERRLA, EOMI ENT, no trauma, moist mucous membranes, no rhinorrhea Neck: Nontender, full range of motion, no spinal tenderness, deformities, step- off CVS: Regular rate and rhythm. S1-S2 present. No murmur, gallop or rub. Respiratory : Tachypnea, bibasilar Rales, chest wall nontender, no wheezing Abdomen: Soft, nontender, nondistended, normal bowel sounds, no masses : Deferred Back: Nontender, no CVA tenderness, no midline spinal tenderness, deformities, step-offs Extremities: Nontender full range of motion, no trauma Skin: Normal color, no trauma, abrasions Neuro: Alert, oriented, cranial nerves II through XII grossly intact. Psychiatry: Normal mood. Normal affect. Not depressed. Not anxious. Results Lab / Micro Data Result Diagrams: 07/24/21 00:25 07/24/21 00:25 Labs: Laboratory Results - last 24 hr 07/24/21 00:25: WBC 8.4, RBC 4.00 L, Hgb 11.7 L, Hct 36.9 L, MCV 92.3, MCH 29.3, MCHC 31.7 L, RDW Std Deviation 53.1 H, RDW Coeff of Jayna 15.9 H, Plt Count 241, MPV 9.2, Immature Gran % (Auto) 0.400, Neut % (Auto) 62.6, Lymph % (Auto) 27.9, [place] % (Auto) 7.5, Eos % (Auto) 0.8, Baso % (Auto) 0.8, Absolute Neuts (auto) 5.3, Absolute Lymphs (auto) 2.34, Nucleated RBC % 0 07/24/21 00:25: Sodium 131 L, Potassium 3.1 L, Chloride 95 L, Carbon Dioxide 28.0, Anion Gap 8, BUN 29 H, Creatinine 1.38 H, Estim Creat Clear Calc 57.14, Est GFR (MDRD) Af Amer 68, Est GFR (MDRD) Non-Af 56 L, BUN/Creatinine Ratio 21.0 H, Glucose 97, Calcium 8.5, Troponin I High Sens 64 07/24/21 00:25: B-Natriuretic Peptide 1762.9 H 07/24/21 00:25: PT 37.8 H, INR 4.0 H* Micro: Microbiology 07/24/21 00:25 Interface Orders SARS-CoV-2 Antigen (Rapid) - Final Rhythm Strip Rhythm Strip: Sinus Rhythm Rate: 100 Ectopy: PVC(s) Radiology Impression Chest X-Ray 07/24/21 00:29 IMPRESSION: Bibasilar pneumonia. Electronically Signed: David Lobato MD at 0:45 EDT Tel , Service support , Assessment & Plan Assessment/Plan (1) Respiratory failure with hypoxia: QUALIFIERS: Chronicity: acute Qualified Code(s): J96.01 - Acute respiratory failure with hypoxia (2) CHF (congestive heart failure): QUALIFIERS: Heart failure type: systolic Heart failure chronicity: acute on chronic Qualified Code(s): I50.23 - Acute on chronic systolic (congestive) heart failure (3) Tobacco abuse: PLAN: Acute respiratory failure secondary to acute on chronic systolic heart failure Patient with oxygen saturation of 78% on room air at emergency department and with respiratory rate of 20. 05/23/2021: Per addendum to cardiology notes: LifeVest was recommended prior to previous discharge. Cardiology catheterization report on 05/10/2021: Patient had occluded proximal circumflex for which he had PCI with drug-eluting stent. Per cardiology notes patient is a candidate for PCI of sidebranch diagonal proximal artery. Patient left hospital AGAINST MEDICAL ADVICE. On 05/12/2021 the circumflex artery occluded and patient had balloon dilatation. At the harness repairer note ejection fraction is 35% which is disproportionate to his coronary anatomy. Reduced ejection fraction attributed to likely alcoholic cardiomyopathy and a probable illicit substance abuse. Echocardiogram on 05/12/2021 showed ejection fraction of 35 patient to 40%. Mild eccentric tricuspid valve insufficiency. Mild RV dilatation with mild RV systolic function. Impression of chest x-ray by radiology: Bibasilar pneumonia. Actual chest x-ray image independently interpreted showed bilateral opacity with some consolidation at the right base. Patient with no leukocytosis or fever. Pneumonia is ruled out. Place on monitored bed at the progressive care unit Weight on admission to the floor; and then daily Strict I&O's Emergency department labs reviewed sodium of 130 and potassium of 4.3. BNP was 1762.9. His BNP ON 07/20/2021 was 1564.7. Received Lasix 40 mg IV push at emergency department. Discussed emergent department to give potassium since patient potassium is 3.1. Because of marginal blood pressure will start patient on Lasix drip. Hold Lasix drip for systolic blood pressure of less than 90. Monitor electrolytes and renal function Trend blood pressure Titrate diuretics and heart failure/blood pressure medications with blood pressure. Kerlix roll and vinny wrap to bilateral lower extremities Fluid restriction of 1500 mls daily 2 g cardiac diet. Resume beta-zakia when blood pressure is stable. Elevated INR. INR on presentation was 4.0 We will check CMP to assess liver biochemistry. Trend INR. Hypokalemia Potassium of 3.1 on presentation. Discussed with ED doc to replace. Trend CMP. Potassium supplementation ordered. Check magnesium. A. fib Ventricular rate EKG 100. Resume home metoprolol. Place on PCU on telemetry Replace potassium. Continue home a Xarelto. BRIEN Creatinine presentation is 1.38. Baseline creatinine is less than 1. Likely cardiorenal syndrome. Lasix as above. Trend CMP. On home lisinopril. Resume when creatinine improves. Hyponatremia Sodium presentation was 131 Likely secondary to congestive heart failure. Lasix as above. Trend BMP. Alcoholism Reports a significant reduction. Drank 2 beers in the last week. Less likely to withdrawal. Counseled. Tobacco abuse Counseled. Declined nicotine patch. Elevated INR. INR on presentation was We will check CMP to assess liver biochemistry. Trend INR. DVT prophylaxis: Not indicated since patient is on Xarelto. Charges/Coding Visit Charges Inpatient E&M: 63435 Init Hosp L3
[2021-07-24] MEDS: Potassium Chloride Oral Tablet 20 MEQ 60 MEQ PO (03:27)
--- NOTE | 2021-07-24 04:05 | ECHOLC_ITS ---
Reason For Study: SOB Procedure This was a limited 2D transthoracic echocardiogram. The study was technically difficult. Exam performed portable in patient room. Left Ventricle Normal LV size. The estimated ejection fraction is 15 %. There is severe global hypokinesis of the left ventricle. Right Ventricle Normal RV size. Normal systolic function. Atria Normal left atrium. Normal right atrium. Mitral Valve Normal mitral valve. Tricuspid Valve Normal tricuspid valve. Aortic Valve The aortic valve is not well visualized. Pulmonic Valve The pulmonic valve is not well visualized. Great Vessels Normal aortic root. Pericardium/Pleural No pericardial effusion. Medication Diluted definity 2ml given slow IV push to enhance endocardial definition. MMode/2D Measurements & Calculations LVIDd: 5.7 cm IVSd: 1.3 cm Ao root diam: 3.6 cm LVIDs: 5.4 cm LVPWd: 0.83 cm FS: 5.7 % LA dimension(2D): 5.0 cm Doppler Measurements & Calculations TR max nash: 260.9 cm/sec TR max P.3 mmHg ECHO/Echo Limited w/Contrast Interpretation Summary Normal LV size. The estimated ejection fraction is 15 %. There is severe global hypokinesis of the left ventricle. Compared to previous study, the left ventricular systolic function has worsened .. Contrast injection was performed. Ordering Physician: Ángel Abreu Referring Physician: Tosha Russell Performed By: Carly Edward RDCS
[2021-07-24] MEDS: Furosemide 500 MG in Empty Viaflex 50 mL 1 EACH CONT INF (04:32)
--- NOTE | 2021-07-24 04:32 | PCS.PANDOC ---
PANDEMIC DOCUMENTATION INITIATED: Date: 06/06/2021 Time: 190
[2021-07-24] MEDS: guaiFENesin 1,200 MG Tablet 1200 MG PO ×2 (04:42→21:41)
[2021-07-24] MEDS: BENZOCAINE/MENTHOL 1 LOZENGE 2 LOZENGE MUCOUS MEM (04:42)
[2021-07-24 08:08] LABS: Prothrombin Time (Protime)PT. 30.1 SECONDS (11.7-14.9)
[2021-07-24 08:38] LABS: Magnesium 1.9 mg/dL (1.6-2.6)
[2021-07-24] MEDS: Potassium Chloride Oral Tablet 20 MEQ 40 MEQ PO (10:03)
[2021-07-24 10:21] LABS: ALB/GLOB Ratio 0.5 RATIO (0.9-2.4); AST(SGOT) 39 U/L (15-37); Alanine Aminotransfer ALT/SGPT 261 U/L (16-61); Albumin, Serum 2.6 g/dL (3.2-5.0); Alkaline Phosphatase 130 U/L (45-117); Anion Gap 10 (5-15); BUN 29 mg/dL (7-18); BUN/Creat Ratio 20.7 RATIO (10-20); Calcium,Total 8.5 mg/dL (8.5-10.1); Chloride 93 mmol/L (98-107); EST Glomerular Filtration Rate 56 mL/min (>60); Est Glom Filt Rate - Afr Amer 67 mL/min (>60); Estimated Creatinine Clearance 56.32 ml/min; Globulin 4.9 g/dL (2.2-4.2); Glucose 148 mg/dL (74-106); Potassium 3.2 mmol/L (3.5-5.1); Protein, Total 7.5 g/dL (6.4-8.2); Sodium Level 132 mmol/L (136-145)
--- NOTE | 2021-07-24 11:58 | PN.HOSP_ITS ---
Documented by User: Marty HOLLINS 07/24/21 12:02 Hospitalist Note Patient is a 56-year-old male who was admitted to [facility] on 07/24/2021 with a chief complaint of shortness of breath due to acute on chronic systolic heart failure. Of note, patient was recently admitted for the same and discharged 2 days ago prior to course of treatment being complete. Patient reports that he needed to leave early last admission due to having an appointment he could not mess. Continue with Lasix drip and fluid restriction. Resume metoprolol when blood pressure stabilized. Patient seen by Marty Moore PA-C, under the supervision of Dr. Kam. Documented by User: Dr. Manas Kam MD 07/24/21 13:43 Hospitalist Note Patient was readmitted as patient was told to stay further but he did not agree. At the time of discharge patient was on Lasix drip which was transitioned to intermittent IV Lasix bolus. Patient was admitted to be discharged. Continue Lasix drip 5 mg/h. Heart failure core measures including intake and output, fluid restriction less than 1500 mL, daily weight monitoring, kidney and electrolytes monitoring
[2021-07-24] MEDS: Rivaroxaban 20 MG Tablet PO (16:39)
[2021-07-24] MEDS: 0.9% Saline Lock 10 ML Syringe IV (17:27)
--- NOTE | 2021-07-24 20:13 | CPS ---
bipap is on and pt will take mask off and put back on when sob
[2021-07-24] MEDS: Atorvastatin Calcium 80 MG Tablet PO (21:41)
[2021-07-24] MEDS: MELATONIN 3 MG TABLET PO (21:48)
[2021-07-25] VITALS (16 sets, daily range): BP systolic 92–124; BP diastolic 66–90; PULSE 60–124; RESP 14–20; TEMP 36.4–36.6; O2SAT 92–100
--- NOTE | 2021-07-25 05:37 | NURSING ---
Pt is refusing bed alarm, despite being fall risk yells angrily at staff if put in use, states he needs to sit up to urinate. Has been taking o2 off and on as needed. Refuses to leave in place. Encouraged pt to call for assistance when up. Pt remains noncompliant
[2021-07-25 06:54] LABS: Absolute Neutrophil Count 8.5 X10^3/uL (2.0-7.7); Basophil# 0.01 X10^3/uL; Basophil% 0.1 % (0-1); Hematocrit 33.7 % (40-54); Hemoglobin 10.9 g/dL (13.0-16.5); Lymphocyte % 18.4 % (19-41); Mean Corp Hgb Conc 32.3 g/dL (32-36); Mean Corpuscular Hgb 29.5 pg (27.0-32.0); Mean Corpuscular Volume 91.3 fL (80-94); Mean Platelet Vol. 9.3 fl (6.2-12.0); Monocyte# 0.71 X10^3/uL; Monocyte% 6.2 % (0-10); NRBC Flagged by Analyzer 0 % (0-5); Neutrophil # 8.52 X10^3/uL (2.7-7.7); Neutrophil % 74.9 % (47-70); Platelet Count 243 K/mm3 (150-450); RBC Distribution Width SD 53.1 fl (35.1-43.9); Red Blood Count 3.69 M/mm3 (4.6-6.2); White Blood Count 11.4 K/mm3 (4.4-11.0)
[2021-07-25 07:11] LABS: International Normalized Ratio 3.5; Prothrombin Time (Protime)PT. 34.3 SECONDS (11.7-14.9)
[2021-07-25 07:31] LABS: Anion Gap 7 (5-15); BUN 37 mg/dL (7-18); BUN/Creat Ratio 25.7 RATIO (10-20); Calcium,Total 8.6 mg/dL (8.5-10.1); Chloride 96 mmol/L (98-107); Creatinine, Serum 1.44 mg/dL (0.70-1.30); EST Glomerular Filtration Rate 54 mL/min (>60); Est Glom Filt Rate - Afr Amer 65 mL/min (>60); Estimated Creatinine Clearance 54.76 ml/min; Glucose 117 mg/dL (74-106); Potassium 3.7 mmol/L (3.5-5.1); Sodium Level 132 mmol/L (136-145)
[2021-07-25] MEDS: Metoprolol(XL)Succ 50 MG Tablet PO ×2 (09:56→21:59)
[2021-07-25] MEDS: Aspirin E.C. 81 MG Tablet PO (09:56)
[2021-07-25] MEDS: Clopidogrel Bisulfate 75 MG Tablet PO (09:56)
[2021-07-25] MEDS: guaiFENesin 1,200 MG Tablet 1200 MG PO ×2 (09:56→21:55)
--- NOTE | 2021-07-25 11:01 | CASEMGMT ---
Pt qualifies for palliative referral per [facility] palliative screening tool and Dr. Castro is agreeable to referral. Referral faxed to palliative. Munira BUTTERFIELD CM
--- NOTE | 2021-07-25 11:06 | PN.HOSP_ITS ---
Documented by User: Marty HOLLINS 07/25/21 11:27 Subjective Subjective Patient is a 56-year-old male comfortably resting in bed, alert and orient x3. Patient reports improvement in his shortness of breath from admission. Denies development of any new symptoms overnight. Denies chest pain, palpitations, hemoptysis, sputum production, fever, chills, N/V/D. Objective Data Objective Data Vital Signs: Vital Signs Temp Pulse Resp BP Pulse Ox 97.5 F L 102 H 18 96/74 98 07/25/21 09:40 07/25/21 09:56 07/25/21 09:40 07/25/21 09:56 07/25/21 09:45 Oxygen Flow Rate (L/min) 11 Oxygen Delivery Method Room Air Weight: 253 lb 15.56 oz Body Mass Index (BMI) 38.6 Intake & Output: Intake and Output for Last 24 Hours 07/23/21 07/24/21 07/25/21 23:59 23:59 23:59 Intake Total 740 / 1140 600 / 600 Output Total 1150 / 1150 Balance -410 / -10 600 / 600 Lab / Micro Data Result Diagrams: 07/25/21 06:15 07/25/21 06:15 Labs: Laboratory Results - last 24 hr 07/25/21 06:15: PT 34.3 H, INR 3.5 07/25/21 06:15: WBC 11.4 H, RBC 3.69 L, Hgb 10.9 L, Hct 33.7 L, MCV 91.3, MCH 29.5, MCHC 32.3, RDW Std Deviation 53.1 H, RDW Coeff of Jayna 16.0 H, Plt Count 243, MPV 9.3, Immature Gran % (Auto) 0.400, Neut % (Auto) 74.9 H, Lymph % (Auto) 18.4 L, [place] % (Auto) 6.2, Eos % (Auto) 0.0, Baso % (Auto) 0.1, Absolute Neuts (auto) 8.5 H, Absolute Lymphs (auto) 2.10, Nucleated RBC % 0 07/25/21 06:15: Sodium 132 L, Potassium 3.7, Chloride 96 L, Carbon Dioxide 29.0, Anion Gap 7, BUN 37 H, Creatinine 1.44 H, Estim Creat Clear Calc 54.76, Est GFR (MDRD) Af Amer 65, Est GFR (MDRD) Non-Af 54 L, BUN/Creatinine Ratio 25.7 H, Glucose 117 H, Calcium 8.6 Micro: Microbiology 07/24/21 00:25 Interface Orders SARS-CoV-2 Antigen (Rapid) - Final Rhythm Strip Rhythm Strip: Sinus Rhythm Rate: 100 Ectopy: PVC(s) Physical Exam Const alert, oriented x3 and no apparent distress HEENT head/scalp atraumatic and moist oral mucous membranes Head and Scalp: normocephalic Eyes PERRL, EOMs intact bilaterally and conjunctivae normal Neck no lymphadenopathy, supple and no JVD Resp normal respiratory effort, no retractions, no use of accessory muscles and clear to auscultation bilaterally Cardio no murmurs and no JVD Rate: tachycardic Rhythm: abnormal rhythm GI normal to inspection, nondistended, normoactive bowel sounds, soft to palpation and non-tender Extremity normal to inspection, full ROM and no clubbing, cyanosis or edema Skin no rashes or lesions noted, no wounds, skin turgor normal and no jaundice Neuro CN's II-XII intact bilaterally Psych affect normal Assessment & Plan Assessment/Plan (1) Tobacco abuse: (2) Respiratory failure with hypoxia: QUALIFIERS: Chronicity: acute Qualified Code(s): J96.01 - Acute respiratory failure with hypoxia (3) Hypoxia: (4) CHF (congestive heart failure): QUALIFIERS: Heart failure chronicity: acute on chronic Heart failure type: systolic Qualified Code(s): I50.23 - Acute on chronic systolic (congestive) heart failure (5) History of atherosclerotic heart disease: (6) Non-compliance: (7) COPD exacerbation: PLAN: Day 2 Discharge planning: Patient to discharge home when medically ready. 1) acute respiratory failure secondary to acute on chronic systolic heart failure Currently satting 98% on room air, patient's heart rate has been elevated off the day although his metoprolol was put on hold due to hypotension. Echocardiogram from 05/11 demonstrates an EF of 40% and no mention of diastolic dysfunction. Home medication regimen includes Lasix daily, lisinopril and metoprolol. Patient does not wear oxygen at home. Plan; remain admitted for cardiac monitoring, continue Lasix drip, metoprolol continued, lisinopril continue, spironolactone. 2) elevated INR Resolved, currently 3.5. 3) hypokalemia Resolved, currently 3.7. 4) atrial fibrillation Heart rate has been elevated due to metoprolol being held from admission due to hypotension, metoprolol has since been continued for rate control. Patient is on Xarelto for anticoagulation. 5) BRIEN Currently 1.4, likely secondary to #1, continue to trend BMP 6) hyponatremia Currently 132, continue to trend BMP. DVT prophylaxis - Xarelto Patient seen by Marty Moore PA-C, under the supervision of Dr. Castro. Documented by User: Dr. Akiko Castro MD 07/25/21 15:49 Objective Data Lab / Micro Data Result Diagrams: 07/25/21 06:15 07/25/21 06:15 Charges/Coding Addendum Addendum: Patient seen by Marty Moore PA-C under my supervision. Patient seen and examined. He was sitting up in bed and had no complaints. He was on Lasix drip. He felt his breathing was improving. He had no new complai nts and review of systems otherwise negative. O/E: Const alert, oriented x3 and no apparent distress HEENT head/scalp atraumatic and moist oral mucous membranes Head and Scalp: normocephalic Eyes PERRL, EOMs intact bilaterally and conjunctivae normal Neck no lymphadenopathy, supple and no JVD Resp normal respiratory effort, no retractions, no use of accessory muscles and clear to auscultation bilaterally Cardio no murmurs and no JVD Rate: tachycardic Rhythm: abnormal rhythm GI normal to inspection, nondistended, normoactive bowel sounds, soft to palpation and non-tender Extremity normal to inspection, full ROM and no clubbing, cyanosis or edema Skin no rashes or lesions noted, no wounds, skin turgor normal and no jaundice Neuro CN's II-XII intact bilaterally Psych affect normal Patient is being managed for acute hypoxic respiratory failure due to acute on chronic heart failure with reduced ejection fraction. He has known EF of 40%. Patient is on Lasix drip. Continue metoprolol and lisinopril as well as spironolactone. His elevated INR has resolved and is down to 3.5 now. Hypok alemia is also resolved. On metoprolol for A. fib. On Xarelto for anticoagulation for A. fib. Has mild hyponatremia of 132 and will monitor. To wean off of Lasix drip by tomorrow and convert to oral Lasix. Rest as per Marty Moore PA-C's note, which I have reviewed and endorsed. Visit Charges Inpatient E&M: 78434 Subs Hosp L3
--- NOTE | 2021-07-25 15:33 | CASEMGMT ---
[place] Readmission Review: 05/10 -05/11/21 NSTEMI (left AMA) 05/12 -05/13/21 STEMI (left AMA) 07/20 - 07/22/21 Acute CHF, Afib, BRIEN Current: A/C Systolic CHF, acute respiratory failure Pt with hx of ETOH and drug abuse, admissions as noted above, and nonadherence to medical regimen. Pt has declined testing for home O2 on index visit. Pt was provided a [employer] savings card a 05/11/21 and is noted to now be on Plavix and Xarelto. Pt uses O2 from a friend's concentrator when he feels he needs it. Pt had a follow-up appointment from 08/02 at 0900 made prior to index discharge with his PCP Elda Russell NP but pt was readmitted prior to this appointment. Pt reported on index admission to take 6-7 pills each day but was not familiar with the medications themselves. Will continue to monitor and assist with DC needs as identified. Mitesh Figueroa RN CM
[2021-07-25] MEDS: Rivaroxaban 20 MG Tablet PO (16:55)
[2021-07-25] MEDS: 0.9% Saline Lock 10 ML Syringe IV (16:55)
[2021-07-25] MEDS: Atorvastatin Calcium 80 MG Tablet PO (21:51)
[2021-07-25] MEDS: LORazepam 0.5 MG Tablet PO (21:51)
[2021-07-25] MEDS: Furosemide 40 MG Tablet PO (21:59)
[2021-07-26] VITALS (17 sets, daily range): BP systolic 85–108; BP diastolic 64–89; PULSE 80–114; RESP 18–20; TEMP 36.5–36.9; O2SAT 80–98
[2021-07-26 07:22] LABS: International Normalized Ratio 3.8; Prothrombin Time (Protime)PT. 36.4 SECONDS (11.7-14.9)
[2021-07-26 07:54] LABS: Anion Gap 8 (5-15); BUN 51 mg/dL (7-18); BUN/Creat Ratio 33.3 RATIO (10-20); Calcium,Total 8.6 mg/dL (8.5-10.1); Chloride 97 mmol/L (98-107); Creatinine, Serum 1.53 mg/dL (0.70-1.30); EST Glomerular Filtration Rate 50 mL/min (>60); Est Glom Filt Rate - Afr Amer 61 mL/min (>60); Estimated Creatinine Clearance 51.54 ml/min; Glucose 88 mg/dL (74-106); Potassium 3.5 mmol/L (3.5-5.1); Sodium Level 134 mmol/L (136-145)
[2021-07-26 09:51] LABS: Absolute Lymphocyte Count 3.44 X10^3/uL (0.83-4.51); Absolute Neutrophil Count 7.5 X10^3/uL (2.0-7.7); Basophil# 0.04 X10^3/uL; Basophil% 0.3 % (0-1); Eosinophil# 0.02 X10^3/uL; Eosinophils% 0.2 % (0-5); Hematocrit 33.9 % (40-54); Hemoglobin 10.9 g/dL (13.0-16.5); Lymphocyte # 3.44 X10^3/ul (0.83-4.51); Lymphocyte % 28.8 % (19-41); Mean Corp Hgb Conc 32.2 g/dL (32-36); Mean Corpuscular Hgb 29.5 pg (27.0-32.0); Mean Corpuscular Volume 91.9 fL (80-94); Mean Platelet Vol. 9.5 fl (6.2-12.0); Monocyte# 0.94 X10^3/uL; Monocyte% 7.9 % (0-10); NRBC Flagged by Analyzer 0 % (0-5); Neutrophil # 7.45 X10^3/uL (2.7-7.7); Neutrophil % 62.4 % (47-70); Platelet Count 277 K/mm3 (150-450); RBC Distribution Width CV 16.1 % (11.6-14.6); RBC Distribution Width SD 53.8 fl (35.1-43.9); Red Blood Count 3.69 M/mm3 (4.6-6.2); White Blood Count 11.9 K/mm3 (4.4-11.0)
[2021-07-26] MEDS: guaiFENesin 1,200 MG Tablet 1200 MG PO ×2 (10:38→22:19)
[2021-07-26] MEDS: Furosemide 40 MG Tablet PO (10:38)
[2021-07-26] MEDS: Clopidogrel Bisulfate 75 MG Tablet PO (10:38)
[2021-07-26] MEDS: Aspirin E.C. 81 MG Tablet PO (10:38)
[2021-07-26] MEDS: Metoprolol(XL)Succ 50 MG Tablet PO ×2 (10:38→22:19)
[2021-07-26] MEDS: Spironolactone 25 MG Tablet PO (10:38)
[2021-07-26] MEDS: Lisinopril 5 MG Tablet PO (10:38)
--- NOTE | 2021-07-26 11:34 | CON.PCM.PA_ITS ---
Assessment & Plan Assessment/Plan (1) DEAN (dyspnea on exertion): (2) CHF (congestive heart failure): QUALIFIERS: Heart failure type: systolic Heart failure chronicity: acute on chronic Qualified Code(s): I50.23 - Acute on chronic sys tolic (congestive) heart failure (3) Respiratory failure with hypoxia: QUALIFIERS: Chronicity: acute Qualified Code(s): J96.01 - Acute respiratory failure with hypoxia (4) CAD (coronary artery disease): QUALIFIERS: Coronary Disease-Associated Artery/Lesion type: [place] artery [place] vs. transplanted heart: [place] heart Associated angina: without angina Qualified Code(s): I25.10 - Atherosclerotic heart disease of [place] coronary artery without angina pectoris (5) Presence of stent in coronary artery: (6) Illicit drug use: (7) Alcohol abuse: (8) Tobacco abuse: (9) Non-compliance: PLAN: 56-year-old male with history of CAD, stents, EF of 15%, presented for the second time this month with complaints of increased shortness of breath and lower extremity edema. Being treated for CHF exacerbation and respiratory failure. History of methamphetamine and alcohol abuse. 1. DEAN/CHF exacerbation/acute on chronic hypoxemic respiratory failure: Being diuresed, history of noncompliance. Educated on diet, however patient falling asleep. He would qualify for palliative care given his symptoms, even would qualify for hospice with an EF of 15%. He declines, does not seem interested in services at this time. He would like us to call his significant other to see if she has any input.\ 2. CAD status post stent/alcohol abuse/tobacco abuse/methamphetamine use/noncompliance: Complicates overall care, management, recovery, and prognosis. Patient would have to be compliant with primary care visits to enroll in palliative. With his history of current illicit drug use and alcohol abuse, we would be limited on medications to treat his shortness of breath. I did suggest treating underlying cause with control of his CHF, this would be ideal but patient expresses little interest. Thank you for the opportunity to participate in this patient's care, please do not hesitate to contact [facility] with any further questions or concerns. Palliative direct line is [phone]. We will follow have liaison contact his significant other to discuss further. Greater than 50% of F2F visit dedicated to education and counseling of palliative care services, medications, comorbid conditions and potential assistance with management, and plan of care moving forward. Start time: 1134 End time: 1201 HPI Consult Data Date of Consult: 07/26/21 HPI Narrative HPI Narrative: KOURTNEY ELIZABETH, is a 56 M who presents to [facility] 07/24/2021 after being discharged 07/22/2021 with complaints of increased shortness of breath. He refused walking oximetry testing while in the hospital his last admission and was treated for A. fib RVR and acute CHF exacerbation. Patient has been using a friend's concentrator at home. Patient has significant cardiac history with CAD s/p 2 stents and an EF of 15%. He also complained of increased lower extremity edema. Other pertinent history include atrial fibrillation, substance (meth) and alcohol abuse, current smoker, and hype rtension. Currently drinking around a 12 pack of beer per day and using methamphetamine intermittently. BNP 1700+. Hyponatremic at 130. His blood pressures have been on the lower side. He was admitted to PCU for further evaluation and management. Patient is being treated for an acute CHF exacerbation and receiving IV Lasix drip. After review of cardiology and past hospital stay notes, patient was recommended a LifeVest. He did have a cardiac cath in April 2021 that showed an occluded proximal circumflex for which he had PCI with drug-eluting stent, however he left AGAINST MEDICAL ADVICE. On , the circumflex artery occluded and patient had balloon dilation. He was thought to have alcoholic/illicit substance abuse cardiomyopathy. Patient is anticoagulated on Xarelto. Patient seen and examined. Resting comfortably upon entering room, took a minute to wake up and discuss reason for visit. Explained palliative services, including benefits and limitations. He did not seem interested in answering any of my questions about his symptoms. Says he is short of breath but he is handling it. Asking me to call his significant other for more information as he would like to go back to sleep. He did say he is not having any nausea or vomiting. No signs of withdrawal. Spoke with nursing staff as well. [facility] Medical History (Updated 07/26/21 @ 11:57 by Catina Smalls, BEBE-C) Acute heart failure BRIEN (acute kidney injury) Alcohol abuse Alcohol abuse Atherosclerotic heart disease of [place] coronary artery without angina pectoris Atrial fibrillation Atrial fibrillation with RVR CHF (congestive heart failure) Chronic pain Congestive heart failure (CHF) Coronary artery disease HTN (hypertension) Hypertension Illicit drug use Myocardial infarct Smoker Smoker Substance abuse Substance abuse Transaminitis Home Medications aspirin 81 mg tablet,delayed release 81 mg PO DAILY #90 tab 07/15/21 [Rx Last Taken Unknown] Xarelto 20 mg PO DAILY 07/21/21 [History Last Taken Unknown] clopidogrel 75 mg PO DAILY 07/21/21 [History Last Taken Unknown] lisinopril 5 mg PO DAILY 07/21/21 [History Last Taken Unknown] rosuvastatin 40 mg PO DAILY 07/21/21 [History Last Taken Unknown] furosemide [Lasix] 40 mg PO BID #60 tab 07/22/21 [Rx Last Taken Unknown] metoprolol succinate [Toprol XL] 50 mg PO BID #60 tab 07/22/21 [Rx Last Taken Unknown] spironolactone 25 mg PO DAILY #30 tab 07/22/21 [Rx Last Taken Unknown] Allergy/AdvReac Type Severity Reaction Status Date / Time No Known Allergies Allergy Verified 07/20/21 20:05 Family History Father COPD (chronic obstructive pulmonary disease) Mother Heart disease Hypertension Surgical History Presence of coronary angioplasty implant and graft Presence of stent in coronary artery (~05/11/21) Social History household members: none Smoking Status: Heavy Smoker (>10/day) alcohol intake: current alcohol intake frequency: 3 or more drinks per day Alcohol type: beer details: 12 pack/day- beer substance use type: methamphetamine ROS ROS Narrative Review of systems otherwise negative from a constitutional, HEENT, respiratory, cardiovascular, GI, genitourinary, musculoskeletal, skin, neurologic, psychiatric and hematologic system unless stated above. Physical Exam Narrative Limited secondary to cooperation Const oriented x3 and no apparent distress General Appearance: cooperative and disheveled Nutritional Appearance: obese HEENT normocephalic and head/scalp atraumatic Neck supple Chest inspection of chest normal Resp Effort and Inspection: able to speak in complete sentences and symmetric chest movement Auscultation: rhonchi and diminished lung sounds; Negative for wheezes Cardio regular rate, S1 normal heart sound and S2 normal heart sound Rhythm: abnormal rhythm irregularly irregular GI GI Narrative: Abdominal obesity distention, prolonged expiration Extremity General Extremity: edema bilateral (pitting 2-3+) Skin Skin Narrative: some mild cyanosis to toes Neuro moves all extremities Neuro Narrative: limited exam 2/2 uncooperative Psych Speech: normal speech
[2021-07-26] MEDS: Ipratropium/Albuterol Sulfate 3 ML AMPUL.NEB INHALATION (12:12)
--- NOTE | 2021-07-26 12:49 | PCM.PN.HOSP ---
Documented by User: Marty HOLLINS 07/26/21 13:03 Subjective Subjective Patient is a 56-year-old male lying in bed, alert and oriented x3. Patient is complaining of shortness of breath and appears to be in acute distress. Patient noncompliant with oxygen supplementation. Objective Data Objective Data Vital Signs: Vital Signs Temp Pulse Resp BP Pulse Ox 97.8 F 106 H 20 H 105/71 80 07/26/21 09:25 07/26/21 12:13 07/26/21 12:13 07/26/21 10:38 07/26/21 09:59 Oxygen Flow Rate (L/min) 10 Oxygen Delivery Method Venturi Mask Weight: 253 lb 15.56 oz Body Mass Index (BMI) 38.6 Intake & Output: Intake and Output for Last 24 Hours 07/24/21 07/25/21 07/26/21 23:59 23:59 23:59 Intake Total 740 / 1140 620.72 / 620.72 0 / 0 Output Total 1150 / 1150 1250 / 1250 600 / 600 Balance -410 / -10 -629.28 / -629.28 -600 / -600 Lab / Micro Data Result Diagrams: 07/26/21 06:00 07/26/21 06:00 Labs: Laboratory Results - last 24 hr 07/26/21 06:00: PT 36.4 H, INR 3.8 07/26/21 06:00: Sodium 134 L, Potassium 3.5, Chloride 97 L, Carbon Dioxide 29.0, Anion Gap 8, BUN 51 H, Creatinine 1.53 H, Estim Creat Clear Calc 51.54, Est GFR (MDRD) Af Amer 61, Est GFR (MDRD) Non-Af 50 L, BUN/Creatinine Ratio 33.3 H, Glucose 88, Calcium 8.6 07/26/21 06:00: WBC 11.9 H, RBC 3.69 L, Hgb 10.9 L, Hct 33.9 L, MCV 91.9, MCH 29.5, MCHC 32.2, RDW Std Deviation 53.8 H, RDW Coeff of Jayna 16.1 H, Plt Count 277, MPV 9.5, Immature Gran % (Auto) 0.400, Neut % (Auto) 62.4, Lymph % (Auto) 28.8, [place] % (Auto) 7.9, Eos % (Auto) 0.2, Baso % (Auto) 0.3, Absolute Neuts (auto) 7.5, Absolute Lymphs (auto) 3.44, Nucleated RBC % 0 Micro: Microbiology 07/26/21 10:19 Stool Stool Occult Blood (JIMBO) - Final Occult Blood Positive 07/24/21 00:25 Interface Orders SARS-CoV-2 Antigen (Rapid) - Final Rhythm Strip Rhythm Strip: Sinus Rhythm Rate: 100 Ectopy: PVC(s) Physical Exam Const alert and oriented x3 General Appearance: in distress Positive for mild and uncooperative HEENT head/scalp atraumatic, moist oral mucous membranes and oropharynx normal Head and Scalp: normocephalic Eyes PERRL, EOMs intact bilaterally and conjunctivae normal Neck no lymphadenopathy, supple and no JVD Resp normal respiratory effort, no retractions, no use of accessory muscles and clear to auscultation bilaterally Cardio no murmurs and no JVD Rate: tachycardic Rhythm: regular rhythm Peripheral Pulses: pulses 2+ throughout GI normal to inspection, nondistended, normoactive bowel sounds, soft to palpation and non-tender Extremity normal to inspection, full ROM and no clubbing, cyanosis or edema Skin no rashes or lesions noted, no wounds, skin turgor normal and no jaundice Neuro CN's II-XII intact bilaterally Psych Attitude: agitated Assessment & Plan Assessment/Plan (1) Tobacco abuse: (2) Respiratory failure with hypoxia: QUALIFIERS: Chronicity: acute Qualified Code(s): J96.01 - Acute respiratory failure with hypoxia (3) Hypoxia: (4) CHF (congestive heart failure): QUALIFIERS: Heart failure chronicity: acute on chronic Heart failure type: systolic Qualified Code(s): I50.23 - Acute on chronic systolic (congestive) heart failure (5) History of atherosclerotic heart disease: (6) Non-compliance: (7) COPD exacerbation: PLAN: Day 3 Discharge planning: Patient to discharge home when medically ready. 1) acute respiratory failure secondary to acute on chronic systolic heart failure Currently satting 98% on room air, patient's heart rate has been elevated off the day although his metoprolol was put on hold due to hypotension. Echocardiogram from 05/11 demonstrates an EF of 40% and no mention of diastolic dysfunction. Home medication regimen includes Lasix daily, lisinopril and metoprolol. Patient does not wear oxygen at home. Plan; remain admitted for cardiac monitoring, Lasix drip discontinued, transition to Lasix 40 mg p.o. twice daily, metoprolol continued, lisinopril continue, spironolactone. 2) hematochezia/melena Patient endorses the passage of dark tarry stool this morning. Patient is stool occult positive. Iron studies ordered, GI consult obtained. Xarelto held. 3) elevated INR Resolved, currently 3.8. 4) hypokalemia Resolved, currently 3.5. 5) atrial fibrillation Heart rate has been elevated due to metoprolol being held from admission due to hypotension, metoprolol has since been continued for rate control. Patient is on Xarelto for anticoagulation. 6) BRIEN Currently 1.5, likely secondary to #1, continue to trend BMP 7) hyponatremia Currently 132, continue to trend BMP. DVT prophylaxis - Xarelto discontinued due to #2 Patient seen by Marty Moore PA-C, under the supervision of Dr. Castro. Documented by User: Dr. Akiko Castro MD 07/26/21 14:53 Objective Data Lab / Micro Data Result Diagrams: 07/26/21 06:00 07/26/21 06:00 Charges/Coding Addendum Addendum: Patient seen by Marty Moore PA-C under my supervision. Patient seen and examined. He complains of having some dark stools overnight and this morning. He denies any lightheadedness or dizziness, chest pain or palpitations, nausea vomiting or diarrhea. Review of symptoms otherwise negative. She denies having any history of rectal bleeding. He is on Xarelto. O/E: Const alert, oriented x3 and no apparent distress HEENT head/scalp atraumatic and moist oral mucous membranes Head and Scalp: normocephalic Eyes PERRL, EOMs intact bilaterally and conjunctivae normal Neck no lymphadenopathy, supple and no JVD Resp normal respiratory effort, no retractions, no use of accessory muscles and clear to auscultation bilaterally Cardio no murmurs and no JVD Rate: tachycardic Rhythm: abnormal rhythm GI normal to inspection, nondistended, normoactive bowel sounds, soft to palpation and non-tender Extremity normal to inspection, full ROM and no clubbing, cyanosis or edema Skin no rashes or lesions noted, no wounds, skin turgor normal and no jaundice Neuro CN's II-XII intact bilaterally Psych affect normal We will hold patient Xarelto and aspirin and consult GI. His INR was elevated on admission and is 3.8 today. Continue metoprolol. Patient was weaned off of Lasix drip yesterday and is now on oral Lasix. Continue Lasix and lisinopril as well as high intensity statin and spironolactone. Await GI recommendations. Patient's hemoglobin is remained stable and is 10.9 today. Fecal occult blood is also positive. Patient now on room air. Titrate oxygen to maintain saturation above 90%. Rest as per Marty Moore PA-C's note, which I have reviewed and endorsed. Visit Charges Inpatient E&M: 55366 Subs Hosp L2
[2021-07-26 13:30] LABS: Iron 74 ug/dL (65-175); Iron Binding Capacity,Total 387 ug/dL (250-450); PERCENT IRON SATURATION 19.1 % (15.0-55.0)
--- NOTE | 2021-07-26 18:13 | EX.PCM.CON.G ---
HPI Consult Data Date of Consult: 07/26/21 HPI Narrative HPI Narrative: KOURTNEY ELIZABETH, is a 56 M who presents with a significant history of CAD status post stent; alcoholism; methamphetamine abuse; atrial fibrillation; heart failure with reduced ejection fraction who presents to the emergency department with progressively worsening SOB that re-occurred a day before this presentation. Associated with his symptoms is fatigue; weakness; orthopnea and paroxysmal nocturnal dyspnea. He reports about 30 pounds weight gain within 3 days. Patient was too short of breath that he borrowed a friend home oxygen to use. Patient is an alcoholic but he has reduced significantly the amount of alcohol he takes. Also he has cut down his use of methamphetamine and tobacco. His significant other reports that patient has episodes of confusion and staring. Patient was admitted to hospital on 07/20/2021 and discharged on 07/22/2021 for heart failure with reduced EF and Afib with RVR. I was called to see him because he had multiple episodes of hematochezia. He does take Xarelto, aspirin and Plavix. He had a CT scan abdomen pelvis recently that showed a normal liver. Normal gallbladder and extrahepatic biliary system. Normal spleen. Normal pancreas. [facility] Medical History (Updated 07/26/21 @ 11:57 by Catina Smalls, BEBE-C) Acute heart failure BRIEN (acute kidney injury) Alcohol abuse Alcohol abuse Atherosclerotic heart disease of [place] coronary artery without angina pectoris Atrial fibrillation Atrial fibrillation with RVR CHF (congestive heart failure) Chronic pain Congestive heart failure (CHF) Coronary artery disease HTN (hypertension) Hypertension Illicit drug use Myocardial infarct Smoker Smoker Substance abuse Substance abuse Transaminitis Home Medications aspirin 81 mg tablet,delayed release 81 mg PO DAILY #90 tab 07/15/21 [Rx Last Taken Unknown] Xarelto 20 mg PO DAILY 07/21/21 [History Last Taken Unknown] clopidogrel 75 mg PO DAILY 07/21/21 [History Last Taken Unknown] lisinopril 5 mg PO DAILY 07/21/21 [History Last Taken Unknown] rosuvastatin 40 mg PO DAILY 07/21/21 [History Last Taken Unknown] furosemide [Lasix] 40 mg PO BID #60 tab 07/22/21 [Rx Last Taken Unknown] metoprolol succinate [Toprol XL] 50 mg PO BID #60 tab 07/22/21 [Rx Last Taken Unknown] spironolactone 25 mg PO DAILY #30 tab 07/22/21 [Rx Last Taken Unknown] Allergy/AdvReac Type Severity Reaction Status Date / Time No Known Allergies Allergy Verified 07/20/21 20:05 Family History Father COPD (chronic obstructive pulmonary disease) Mother Heart disease Hypertension Surgical History Presence of coronary angioplasty implant and graft Presence of stent in coronary artery (~05/11/21) Social History household members: none Smoking Status: Heavy Smoker (>10/day) alcohol intake: current alcohol intake frequency: 3 or more drinks per day Alcohol type: beer details: 12 pack/day- beer substance use type: methamphetamine ROS Review of Systems ROS Unobtainable: other Constitutional Constitutional: Denies fatigue, fever(s), poor appetite, weight gain or weight loss ENT HEENT: Denies mouth lesions Cardiovascular Cardiovascular: Denies abdominal bloating, abdominal edema or abdominal pain Respiratory/Chest Respiratory/Chest: Denies change in mental status, change in phlegm color, chest congestion or chest tightness Gastrointestinal Gastrointestinal: Denies belching, bloating, change in bowel habits, change in stool character, chewing difficulty, coffee ground emesis, constipation, cramping, diarrhea, dyspepsia, dysphagia, early satiety, excessive flatus, fecal incontinence, heartburn, hematemesis, hematochezia, hemorrhoids, loose stools, melena, nausea, odynophagia, rectal bleeding, tenesmus, vomiting or weight changes Genitourinary Genitourinary: Denies abdominal discomfort, burning urination or itching Musculoskeletal Musculoskeletal: Reports as per HPI; Denies muscle weakness or myalgias Integumentary Integumentary: Denies jaundice Neurologic Neurologic: Denies lack of coordination or weakness Psychiatric Psychiatric: Denies confusion, depression, memory loss, mood swings, paranoia or suicidal ideation Endocrine Endocrinology: Denies systems reviewed and no addt'l complaints, except as documented Hematologic/Lymphatic Hematologic/Lymphatic: Denies anemia, easy bleeding, easy bruising or lymphadenopathy Allergic/Immunologic Allergic/Immunologic: Denies systems reviewed and no addt'l complaints, except as documented Physical Exam Const alert General Appearance: cooperative Orientation / Consciousness: oriented to person HEENT hearing grossly normal bilaterally Head and Scalp: normal to inspection Face and Sinus: face symmetric Nose: external nose normal Mouth: oral and palatal mucosa normal Eyes conjunctivae normal General Eye: normal appearance of both eyes Neck full ROM General: normal visual inspection Lymph Lymphatic: no lymphadenopathy noted Chest inspection of chest normal and palpation of chest normal Chest: symmetrical chest wall rise Resp normal respiratory effort Effort and Inspection: able to speak in complete sentences Cardio regular rate GI non-distended Percussion: normal to percussion Rectal Exam: deferred Neuro Speech: speech normal Gait (Neuro): normal gait Lab / Micro Data Result Diagrams: 07/26/21 06:00 07/26/21 06:00 Labs: Laboratory Results - last 24 hr 07/26/21 06:00: PT 36.4 H, INR 3.8 07/26/21 06:00: Sodium 134 L, Potassium 3.5, Chloride 97 L, Carbon Dioxide 29.0, Anion Gap 8, BUN 51 H, Creatinine 1.53 H, Estim Creat Clear Calc 51.54, Est GFR (MDRD) Af Amer 61, Est GFR (MDRD) Non-Af 50 L, BUN/Creatinine Ratio 33.3 H, Glucose 88, Calcium 8.6 07/26/21 06:00: WBC 11.9 H, RBC 3.69 L, Hgb 10.9 L, Hct 33.9 L, MCV 91.9, MCH 29.5, MCHC 32.2, RDW Std Deviation 53.8 H, RDW Coeff of Jayna 16.1 H, Plt Count 277, MPV 9.5, Immature Gran % (Auto) 0.400, Neut % (Auto) 62.4, Lymph % (Auto) 28.8, [place] % (Auto) 7.9, Eos % (Auto) 0.2, Baso % (Auto) 0.3, Absolute Neuts (auto) 7.5, Absolute Lymphs (auto) 3.44, Nucleated RBC % 0 07/26/21 06:00: Iron 74, TIBC 387, Iron Saturation 19.1 Micro: Microbiology 07/26/21 10:19 Stool Stool Occult Blood (JIMBO) - Final Occult Blood Positive Rhythm Strip Rhythm Strip: Sinus Rhythm Rate: 100 Ectopy: PVC(s)
[2021-07-26] MEDS: 0.9% Normal Saline 1,000 ML 15 ML IV (20:19)
[2021-07-26] MEDS: Bisacodyl 5 MG Tablet 20 MG PO (20:19)
[2021-07-26] MEDS: 0.9% Saline Lock 10 ML Syringe IV (20:20)
[2021-07-26] MEDS: Electrolyte Solution/Peg's 4000 ML PO (20:43)
[2021-07-26] MEDS: Atorvastatin Calcium 80 MG Tablet PO (22:19)
[2021-07-26 23:22] LABS: Magnesium 2.1 mg/dL (1.6-2.6); Phosphorus 3.5 mg/dL (2.5-4.9); Potassium 3.6 mmol/L (3.5-5.1)
--- NOTE | 2021-07-26 23:59 | NURSING ---
Pt is refusing bed alarm, despite being fall risk yells angrily at staff if put in use, states he needs to sit up to urinate. Has been taking o2 off and on as needed. Refuses to leave in place. Pt unconnected line to saline lock and took heart monitor off and sitting on the toilet. Encouraged pt to call for assistance when up. Pt remains noncompliant. Educated patient on the importance on leaving the IV line alone and the heart monitor.
[2021-07-27] VITALS (33 sets, daily range): BP systolic 59–146; BP diastolic 35–116; PULSE 84–137; RESP 16–26; TEMP 36.3–36.8; O2SAT 0–100
--- NOTE | 2021-07-27 06:12 | NURSING ---
Patient given golytely last night per doctor order for colonoscopy patient only had 1260. Patient was none complaint with drinking golytely was educated on the procedure and the importance of drinking it. Patient states he wasn't having clear bowel movements. This nurse didn't observe patient bowel movement has been none complaint during this shift.
[2021-07-27 07:14] LABS: Absolute Lymphocyte Count 3.37 X10^3/uL (0.83-4.51); Absolute Neutrophil Count 4.9 X10^3/uL (2.0-7.7); Basophil# 0.03 X10^3/uL; Basophil% 0.3 % (0-1); Eosinophil# 0.01 X10^3/uL; Eosinophils% 0.1 % (0-5); Hematocrit 32.5 % (40-54); Hemoglobin 10.5 g/dL (13.0-16.5); Lymphocyte # 3.37 X10^3/ul (0.83-4.51); Lymphocyte % 37.1 % (19-41); Mean Corp Hgb Conc 32.3 g/dL (32-36); Mean Corpuscular Hgb 29.5 pg (27.0-32.0); Mean Corpuscular Volume 91.3 fL (80-94); Mean Platelet Vol. 9.2 fl (6.2-12.0); Monocyte# 0.76 X10^3/uL; Monocyte% 8.4 % (0-10); NRBC Flagged by Analyzer 0 % (0-5); Neutrophil # 4.87 X10^3/uL (2.7-7.7); Neutrophil % 53.7 % (47-70); Platelet Count 267 K/mm3 (150-450); RBC Distribution Width CV 15.9 % (11.6-14.6); RBC Distribution Width SD 53.3 fl (35.1-43.9); Red Blood Count 3.56 M/mm3 (4.6-6.2); White Blood Count 9.1 K/mm3 (4.4-11.0)
[2021-07-27 07:16] LABS: International Normalized Ratio 2.6
[2021-07-27 07:41] LABS: AST(SGOT) 37 U/L (15-37); Alanine Aminotransfer ALT/SGPT 162 U/L (16-61); Albumin, Serum 2.6 g/dL (3.2-5.0); Alkaline Phosphatase 108 U/L (45-117); Anion Gap 11 (5-15); BUN 60 mg/dL (7-18); BUN/Creat Ratio 39.2 RATIO (10-20); Bilirubin, Direct 1.17 mg/dL (0.00-0.30); Calcium,Total 8.4 mg/dL (8.5-10.1); Chloride 95 mmol/L (98-107); Creatinine, Serum 1.53 mg/dL (0.70-1.30); EST Glomerular Filtration Rate 50 mL/min (>60); Est Glom Filt Rate - Afr Amer 61 mL/min (>60); Estimated Creatinine Clearance 51.54 ml/min; Globulin 4.4 g/dL (2.2-4.2); Glucose 92 mg/dL (74-106); Potassium 3.4 mmol/L (3.5-5.1); Sodium Level 134 mmol/L (136-145)
--- NOTE | 2021-07-27 11:00 | SUR.PREOP ---
PATIENT SITTING AT END OF BED ON EDGE, PATIENT STATED HE WOULD ONLY BE PUT ON A NASAL CANNULA, THIS RN PLACED PATIENT ON 5LPM OF OXYGEN VIA NASAL CANNULA. PATIENT REFUSED TO SIT IN BED. PATIENT HAD SHORTS ON AND REFUSED TO TAKE THEM OFF FOR PROCEDURE. PATIENT HAD NO FLUIDS HOOKED UP TO HIM, ONLY A HEP LOCK. PATIENT REFUSED FOR THIS RN TO ALLOW FOR A FLUSH TO ENSURE IV PATENCY. RN INQUIRED ABOUT BOWEL PREP. PATIENT STATED YES I DRANK THE STUFF LAST NIGHT, OKAY? RN INQUIRED ABOUT COLOR AND APPEARANCE OF STOOL, PATIENT STATED ITS A BUNCH OF BLACK STUFF RN MADE JOINER AWARE PATIENT AND ENDO RN CONTACTED. PATIENT HAD NO FURTHER ISSUES AT THIS TIME. PATIENT STATES TO LEAVE HIM ALONE. PATIENT ADVISED TO USE CALL LIGHT IF HE NEEDS ANYTHING.
--- NOTE | 2021-07-27 13:57 | OP.CCLET_ITS ---
06/22/2022 Tosha Russell Re : Upper GI endoscopy procedure for Jose Merlosr Drew This procedure was performed on Tuesday, July 27, 2021. My impressions and recommendations are as follows: Impressions : - Normal esophagus. - Red blood in the stomach. - Multiple bleeding angioectasias in the stomach. Treated with a heater probe. - Non-bleeding erosive gastropathy. - Grade II duodenal varices. - No specimens collected. Recommendations : - Return patient to ICU for ongoing care. - NPO today. - Continue present medications. My findings are described in the full procedure note, which is enclosed. If I can be of further assistance, please feel free to contact me at . Sincerely, Roby Pierce, 07/27/2021 1:57:03 PM This report has been signed electronically.
--- NOTE | 2021-07-27 13:57 | OP.EGD_ITS ---
Patient Name: Jose Pham Procedure Date: 07/27/2021 1:00 PM Date of : 1965 Age: 56 Procedure: Upper GI endoscopy Indications: Hematemesis Providers: Roby Pierce DO Patient Profile: This is a 56 year old male. Refer to note in patient chart for documentation of history and physical. Patient has symptoms. He is status post non-endoscopic tube procedure. Complications: No immediate complications. Procedure: Pre-Anesthesia Assessment: - Prior to the procedure, a History and Physical was performed, and patient medications and allergies were reviewed. The patient is competent. The risks and benefits of the procedure and the sedation options and risks were discussed with the patient. All questions were answered and informed consent was obtained. Patient identification and proposed procedure were verified by the physician in the pre-procedure area. Mental Status Examination: alert and oriented. Airway Examination: normal oropharyngeal airway and neck mobility. Respiratory Examination: clear to auscultation. CV Examination: normal. Prophylactic Antibiotics: The patient does not require prophylactic antibiotics. Prior Anticoagulants: The patient has taken no previous anticoagulant or antiplatelet agents. ASA Grade Assessment: II - A patient with mild systemic disease. After reviewing the risks and benefits, the patient was deemed in satisfactory condition to undergo the procedure. The anesthesia plan was to use moderate sedation / analgesia (conscious sedation). Immediately prior to administration of medications, the patient was re-assessed for adequacy to receive sedatives. The heart rate, respiratory rate, oxygen saturations, blood pressure, adequacy of pulmonary ventilation, and response to care were monitored throughout the procedure. The physical status of the patient was re-assessed after the procedure. After obtaining informed consent, the endoscope was passed under direct vision. Throughout the procedure, the patient's blood pressure, pulse, and oxygen saturations were monitored continuously. The Endoscope was introduced through the mouth, and advanced to the second part of duodenum. The upper GI endoscopy was accomplished without difficulty. The patient tolerated the procedure well. Moderate Sedation: Moderate (conscious) sedation was administered by the endoscopy nurse and supervised by the endoscopist. The patient's oxygen saturation, heart rate, blood pressure and response to care were monitored. Scope In: 1:18:56 PM Scope Out: 1:25:04 PM Total Procedure Duration Time 0 hours 6 minutes 8 seconds Findings: The examined esophagus was normal. Red blood was found in the stomach. Multiple bleeding angioectasias were found on the anterior wall of the stomach. Coagulation for hemostasis using heater probe was successful. Estimated blood loss was minimal. Multiple localized, non-bleeding erosions were found in the stomach. There were no stigmata of recent bleeding. Estimated blood loss: none. Grade II varices were found in the duodenal bulb. Estimated blood loss: none. Impression: - Normal esophagus. - Red blood in the stomach. - Multiple bleeding angioectasias in the stomach. Treated with a heater probe. - Non-bleeding erosive gastropathy. - Grade II duodenal varices. - No specimens collected. Recommendation: - Return patient to ICU for ongoing care. - NPO today. - Continue present medications. Procedure Code(s): --- Professional --- 68154, Esophagogastroduodenoscopy, flexible, transoral; with control of bleeding, any method CPT copyright 2017 [employer]. All rights reserved. The codes documented in this report are preliminary and upon transit vehicle inspector review may be revised to meet current compliance requirements. Roby Pierce DO 07/27/2021 1:57:03 PM This report has been signed electronically. Number of Addenda: 1 Note Initiated On: 07/27/2021 1:00 PM Addendum Number: 1 Addendum Date: 06/22/2022 4:21:55 PM MAC was used instead of moderate sedation for this patient. Roby Pierce DO 06/22/2022 4:22:06 PM This report has been signed electronically.
--- NOTE | 2021-07-27 14:07 | EKG12_ITS ---
Test Reason : POST OP Blood Pressure : / mmHG Vent. Rate : 129 BPM Atrial Rate : 129 BPM P-R Int : 192 ms QRS Dur : 116 ms QT Int : 282 ms P-R-T Axes : 044 109 180 degrees QTc Int : 413 ms Poor data quality, interpretation may be adversely affected Sinus tachycardia Inferior-posterior infarct Abnormal ECG Confirmed by JARAD ROBISON, JOSE ([id number]), editor managing newspaper CURLY GRIMES ([id number]) on 08/02/2021 10:28:34 AM Referred By: LISS Confirmed By:JOSE ABRAHAM MD
--- NOTE | 2021-07-27 14:15 | EKG12_ITS ---
Test Reason : AM EKG Blood Pressure : / mmHG Vent. Rate : 103 BPM Atrial Rate : 129 BPM P-R Int : 000 ms QRS Dur : 110 ms QT Int : 288 ms P-R-T Axes : 000 109 233 degrees QTc Int : 377 ms Atrial fibrillation with premature ventricular or aberrantly conducted complexes Low voltage QRS Nonspecific ST and T wave abnormality Abnormal ECG When compared with ECG of 27-JUL-2021 14:08, MANUAL COMPARISON REQUIRED, DATA IS UNCONFIRMED Confirmed by JARAD ROBISON, JOSE ([id number]), acquisitions editor CURLY GRIMES ([id number]) on 08/02/2021 9:55:50 AM Referred By: REYNA Confirmed By:JOSE ABRAHAM MD
[2021-07-27 14:42] LABS: Hematocrit 31.8 % (40-54); Hemoglobin 10.3 g/dL (13.0-16.5); Mean Corp Hgb Conc 32.4 g/dL (32-36); Mean Corpuscular Hgb 29.9 pg (27.0-32.0); Mean Corpuscular Volume 92.4 fL (80-94); Mean Platelet Vol. 9.4 fl (6.2-12.0); Platelet Count 251 K/mm3 (150-450); RBC Distribution Width CV 16.5 % (11.6-14.6); RBC Distribution Width SD 54.9 fl (35.1-43.9); Red Blood Count 3.44 M/mm3 (4.6-6.2); White Blood Count 9.7 K/mm3 (4.4-11.0)
[2021-07-27 15:04] LABS: ALB/GLOB Ratio 0.6 RATIO (0.9-2.4); AST(SGOT) 33 U/L (15-37); Alanine Aminotransfer ALT/SGPT 143 U/L (16-61); Albumin, Serum 2.4 g/dL (3.2-5.0); Alkaline Phosphatase 98 U/L (45-117); Anion Gap 10 (5-15); BUN 63 mg/dL (7-18); BUN/Creat Ratio 39.4 RATIO (10-20); Calcium,Total 8.3 mg/dL (8.5-10.1); Chloride 98 mmol/L (98-107); EST Glomerular Filtration Rate 48 mL/min (>60); Est Glom Filt Rate - Afr Amer 58 mL/min (>60); Estimated Creatinine Clearance 49.28 ml/min; Globulin 4.1 g/dL (2.2-4.2); Glucose 97 mg/dL (74-106); Potassium 3.9 mmol/L (3.5-5.1); Protein, Total 6.5 g/dL (6.4-8.2); Sodium Level 135 mmol/L (136-145)
--- NOTE | 2021-07-27 15:21 | NURSING ---
Report called to nurse Anjana for pt to go to ICU after scope.
[2021-07-27 15:28] LABS: Troponin-I HS 65 pg/mL (3.0-78.0)
--- NOTE | 2021-07-27 15:41 | PN.HOSP_ITS ---
Subjective Subjective Patient seen and examined. He was seen earlier this morning and had no active complaints then. He had EGD and in PACU, he was noted to be hypoxic, with sats going down to 30%, requirinig use of LMA and ambubag. He was subsequently put on 8L of oxygen by nasal canula. He also required phenylephrine due to hypotensi on. He was also thought to have some inferior t wave changes concerning for ischemia. Objective Data Objective Data Vital Signs: Vital Signs Temp Pulse Resp BP Pulse Ox 97.3 F L 121 H 24 H 97/68 90 07/27/21 14:00 07/27/21 15:20 07/27/21 15:20 07/27/21 15:20 07/27/21 15:20 Oxygen Flow Rate (L/min) 8 Oxygen Delivery Method Nasal Cannula Weight: 253 lb 15.56 oz Body Mass Index (BMI) 38.6 Intake & Output: Intake and Output for Last 24 Hours 07/25/21 07/26/21 07/27/21 23:59 23:59 23:59 Intake Total 620.72 / 620.72 1260 / 1260 Output Total 1250 / 1250 600 / 600 Balance -629.28 / -629.28 660 / 660 Lab / Micro Data Result Diagrams: 07/27/21 14:28 07/27/21 14:28 Labs: Laboratory Results - last 24 hr 07/26/21 06:00: Potassium 3.6, Phosphorus 3.5, Magnesium 2.1 07/27/21 06:40: PT 27.0 H, INR 2.6 07/27/21 06:40: WBC 9.1, RBC 3.56 L, Hgb 10.5 L, Hct 32.5 L, MCV 91.3, MCH 29.5, MCHC 32.3, RDW Std Deviation 53.3 H, RDW Coeff of Jayna 15.9 H, Plt Count 267, MPV 9.2, Immature Gran % (Auto) 0.400, Neut % (Auto) 53.7, Lymph % (Auto) 37.1, [place] % (Auto) 8.4, Eos % (Auto) 0.1, Baso % (Auto) 0.3, Absolute Neuts (auto) 4.9, Absolute Lymphs (auto) 3.37, Nucleated RBC % 0 07/27/21 06:40: Sodium 134 L, Potassium 3.4 L, Chloride 95 L, Carbon Dioxide 28.0, Anion Gap 11, BUN 60 H, Creatinine 1.53 H, Estim Creat Clear Calc 51.54, Est GFR (MDRD) Af Amer 61, Est GFR (MDRD) Non-Af 50 L, BUN/Creatinine Ratio 39.2 H, Glucose 92, Calcium 8.4 L, Total Bilirubin 2.00 H, Direct Bilirubin 1.17 H, AST 37, ALT 162 H, Alkaline Phosphatase 108, Total Protein 7.0, Albumin 2.6 L, Globulin 4.4 H 07/27/21 14:28: Sodium 135 L, Potassium 3.9, Chloride 98, Carbon Dioxide 27.0, Anion Gap 10, BUN 63 H, Creatinine 1.60 H, Estim Creat Clear Calc 49.28, Est GFR (MDRD) Af Amer 58 L, Est GFR (MDRD) Non-Af 48 L, BUN/Creatinine Ratio 39.4 H, Gl ucose 97, Calcium 8.3 L, Total Bilirubin 1.80 H, AST 33, ALT 143 H, Alkaline Phosphatase 98, Total Protein 6.5, Albumin 2.4 L, Globulin 4.1, Albumin/Globulin Ratio 0.6 L 07/27/21 14:28: WBC 9.7, RBC 3.44 L, Hgb 10.3 L, Hct 31.8 L, MCV 92.4, MCH 29.9, MCHC 32.4, RDW Std Deviation 54.9 H, RDW Coeff of Jayna 16.5 H, Plt Count 251, MPV 9.4 07/27/21 14:28: Troponin I High Sens 65 Micro: Microbiology 07/26/21 10:19 Stool Stool Occult Blood (JIMBO) - Final Occult Blood Positive 07/24/21 00:25 Interface Orders SARS-CoV-2 Antigen (Rapid) - Final Rhythm Strip Rhythm Strip: Sinus Rhythm Rate: 100 Ectopy: PVC(s) Physical Exam Const alert, oriented x3 and no apparent distress Exam Limitations: no limitations HEENT head/scalp atraumatic and moist oral mucous membranes Head and Scalp: normocephalic Eyes PERRL and EOMs intact bilaterally Neck no lymphadenopathy Resp normal respiratory effort, no retractions and no use of accessory muscles Cardio regular rate, regular rhythm, S1 normal heart sound, S2 normal heart sound and no murmurs GI normal to inspection, nondistended, normoactive bowel sounds, soft to palpation, non-tender and non-distended Extremity normal to inspection Peripheral Pulses: Yes pulses 2+ throughout Skin no rashes or lesions noted Neuro oriented x3 and CN's II-XII intact bilaterally Sensorium / Orientation: awake and alert Psych affect normal Assessment & Plan Assessment/Plan (1) Respiratory failure with hypoxia: QUALIFIERS: Chronicity: acute Qualified Code(s): J96.01 - Acute respiratory failure with hypoxia PLAN: #Acute hypoxic respiratory failure due to acute on chronic HFrEF * has known EF of 35-40%. * hold lasix due to hypotension * needed to be ambubagged in the PACU and was nearly intubated due to hypoxia. Went as low as 30% sats. * titrate oxygen to maintain sats >90% * breathing treatment with bronchodilators * * #Shock * etiology is unclear; possibly related to anesthesia. Became hypotensive in PACU, requiring initiation of levophed. * currenty on 15mcg of levophed * transfer to ICU. Titrate levophed to maintain MAP >65 * consult critical care * patient also tachycardic; appears to be sinus tachycardia. Unable to give metoprolol or rate limiting meds due to shock. Initial high sensitivity troponin was not elevated; will trend. * #melena * had some episodes of dark tarry stool yesterday, and stool for occult blood was positive. * xarelto on hold * had EGD today which showed normal esophagus, and red blood in the stomach, with multiple bleeding angioectasias in the stomach, treated with heater probe, non bleeding erosive gastropathy and grade II duodenal varices. * gastronterology on board. * Hb today is 10/3 * #Atrial fibrillation: on metoprolol; will hold due to shock. #BRIEN:Cr today is 1.6. Likely increased slightly due to shock. on levophed. Will trend CrIf it worsens, consult nephrology. #Elevated INR: was still mildly elevated at 2.6 today.. Will trend #Hyponatremia: Na is 134. Will trend. DVT prophylaxis; SCDs Charges/Coding Visit Charges Inpatient E&M: 62443 Subs Hosp L3
[2021-07-27] MEDS: 0.9% Normal Saline 1,000 ML 15 ML IV (16:02)
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
--- NOTE | 2021-07-27 19:00 | NURSING ---
When this RN arrived in PACU to bring pt to ICU, pt's first words were I will have no issues hitting you. disc keeping monitor/bpcuff/spo2/O2 on till reach ICU. pt indicates agreement. once arrived in the ICU. pt refused to speak to this RN, trying to take off monitor etc. disc leaving everything on till Levo could be weaned and dc'd. While he didn't say anything, he stopped trying to take things off. pt refused to allow any kind of physical assessment. once levo dc'd. pt removed all monitoring equipment and again refused to answer any questions or allow any kind of assessment. He will now only speak to staff if he want's something, ie urinal/ice chips. Dr. Castro made aware.
--- NOTE | 2021-07-27 19:30 | NURSING ---
On initial round to room patient states I feel like I am being held prisoner, this RN discusses with patient why he is admitted to ICU and also discusses AMA option. Patient states he just wants to be left alone but wants to stay right now. Patient refuses any vital sign checks or being hooked up to anything on monitor. This RN discusses with patient need for monitoring in ICU and he states I don't give a shit just leave me alone.
--- NOTE | 2021-07-27 20:35 | PCM.HOSP.N ---
Hospitalist Note Patient refusing to allow nursing staff to properly care for patient, including wearing heart monitor, taking vital signs, administer medications. Patient refuses to speak to staff unless he is requesting something or threatening them with violence. Patient's vital signs now stable, patient has been off Levophed drip for 2 hours. Will transfer to PCU, discussed with Dr. Kilpatrick and she is agreeable with plan.
--- NOTE | 2021-07-27 22:15 | NURSING ---
Pt transferred to PCU. Upon arrival, pt agreed to wear surveillance monitor and 5L NC but has been non compliant previously. VS obtained. Pt stated he wants to be left alone now. Refused medications and bed alarm. This RN advised pt on using call light but pt non compliant.
--- NOTE | 2021-07-27 23:00 | CPS ---
Pt continues to refuse BIPAP.
--- NOTE | 2021-07-27 23:39 | NURSING ---
This Nurse coming on and taking over for pt at this time. This nurse is aware that Shift Assessment performed by James Jules.
[2021-07-28] VITALS (12 sets, daily range): BP systolic 92–101; BP diastolic 58–84; PULSE 64–132; RESP 18–22; TEMP 36.3–36.7; O2SAT 79–96
--- NOTE | 2021-07-28 01:14 | NURSING ---
This nurse in to see pt and take vitals. Pt had oxygen off and spo2 was 73-77% on RA. This nurse reapplied. In the 20 min this nurse stayed in the room, pt took off oxygen 3 more times. Pt complained it was making his nose dry. This nurse put some humdification on him and he seemed to go back to sleep and left oxygen alone. Will continue to monitor to make sure he keeps oxygen on.
--- NOTE | 2021-07-28 02:11 | NURSING ---
oxygen still on pt at 5L Nc at this time.
--- NOTE | 2021-07-28 05:55 | EKG12_ITS ---
Test Reason : PACU Blood Pressure : / mmHG Vent. Rate : 129 BPM Atrial Rate : 129 BPM P-R Int : 152 ms QRS Dur : 118 ms QT Int : 322 ms P-R-T Axes : 000 109 175 degrees QTc Int : 471 ms Poor data quality, interpretation may be adversely affected Sinus tachycardia Inferior-posterior infarct , possibly acute Consider right ventricular involvement in acute inferior infarct Abnormal ECG When compared with ECG of 27-JUL-2021 14:07, MANUAL COMPARISON REQUIRED, DATA IS UNCONFIRMED Confirmed by JARAD ROBISON, JOSE ([id number]), legal editor CURLY GRIMES ([id number]) on 08/02/2021 10:23:25 AM Referred By: LISS Confirmed By:JOSE ABRAHAM MD
[2021-07-28] MEDS: guaiFENesin 1,200 MG Tablet 1200 MG PO ×2 (11:18→21:29)
--- NOTE | 2021-07-28 13:11 | PN.HOSP_ITS ---
Documented by User: Seble Martinez NP, CAR INSTALLATIONS SUPERVISOR-C 07/28/21 13:24 Subjective Subjective Patient seen and examined. Verbally upset during assessment stating he has been kept here for 2 days and is not allowed to go home. Denies shortness of breath. Patient has been refusing heart monitor, vital signs, medications, etc. Previous code ruby. Upon further discussion with patient, he is now amendable to recommended treatment. Objective Data Objective Data Vital Signs: Vital Signs Temp Pulse Resp BP Pulse Ox 98.0 F 130 H 18 99/68 92 07/28/21 07:48 07/28/21 10:00 07/28/21 07:48 07/28/21 07:48 07/28/21 09:55 Oxygen Flow Rate (L/min) [At 5 REST with Oxygen] Oxygen Flow Rate (L/min) 5 Oxygen Delivery Method Nasal Cannula Weight: 253 lb 15.56 oz Body Mass Index (BMI) 38.6 Intake & Output: Intake and Output for Last 24 Hours 07/26/21 07/27/21 07/28/21 23:59 23:59 23:59 Intake Total 1260 / 1260 1191.16 / 1191.16 Output Total 600 / 600 600 / 600 Balance 660 / 660 591.16 / 591.16 Lab / Micro Data Result Diagrams: 07/27/21 14:28 07/27/21 14:28 Labs: Laboratory Results - last 24 hr 07/27/21 14:28: Sodium 135 L, Potassium 3.9, Chloride 98, Carbon Dioxide 27.0, Anion Gap 10, BUN 63 H, Creatinine 1.60 H, Estim Creat Clear Calc 49.28, Est GFR (MDRD) Af Amer 58 L, Est GFR (MDRD) Non-Af 48 L, BUN/Creatinine Ratio 39.4 H, Glucose 97, Calcium 8.3 L, Total Bilirubin 1.80 H, AST 33, ALT 143 H, Alkaline Phosphatase 98, Total Protein 6.5, Albumin 2.4 L, Globulin 4.1, Albumin/Globulin Ratio 0.6 L 07/27/21 14:28: WBC 9.7, RBC 3.44 L, Hgb 10.3 L, Hct 31.8 L, MCV 92.4, MCH 29.9, MCHC 32.4, RDW Std Deviation 54.9 H, RDW Coeff of Jayna 16.5 H, Plt Count 251, MPV 9.4 07/27/21 14:28: Troponin I High Sens 65 Micro: Microbiology 07/26/21 10:19 Stool Stool Occult Blood (JIMBO) - Final Occult Blood Positive 07/24/21 00:25 Interface Orders SARS-CoV-2 Antigen (Rapid) - Final Radiography Diagnostic Testing: Radiology Impression Echocardiogram 07/24/21 04:05 Interpretation Summary Normal LV size. The estimated ejection fraction is 15 %. There is severe global hypokinesis of the left ventricle. Compared to previous study, the left ventricular systolic function has worsened.. Contrast injection was performed. Ordering Physician: Ángel Abreu Referring Physician: Tosha Russell Performed By: Carly Edward RDCS Rhythm Strip Rhythm Strip: Sinus Rhythm Rate: 100 Ectopy: PVC(s) Physical Exam Const alert, oriented x3 and no apparent distress Orientation / Consciousness: awake, oriented to person, oriented to place and oriented to time HEENT normocephalic and moist oral mucous membranes Eyes PERRL, EOMs intact bilaterally and conjunctivae normal Neck no lymphadenopathy Resp normal respiratory effort and clear to auscultation bilaterally Cardio Cardio Narrative: Atrial fibrillation, tachycardic Peripheral Pulses: pulses 2+ throughout GI normal to inspection, nondistended, normoactive bowel sounds, non-tender and n on-distended Extremity normal to inspection Skin no rashes or lesions noted Lesions: no lesions Rashes: no rashes Trauma: no lacerations or abrasions Neuro CN's II-XII intact bilaterally, no focal motor deficits, no sensory deficits noted and deep tendon reflexes 2+ bilaterally Psych mental status grossly normal and affect normal Assessment & Plan Assessment/Plan (1) Respiratory failure with hypoxia: QUALIFIERS: Chronicity: acute Qualified Code(s): J96.01 - Acute respiratory failure with hypoxia (2) CHF (congestive heart failure): QUALIFIERS: Heart failure chronicity: acute on chronic Heart failure type: systolic Qualified Code(s): I50.23 - Acute on chronic systolic (congestive) heart failure PLAN: 1. Acute hypoxic respiratory failure secondary to acute on chronic heart failure with reduced ejection fraction-echocardiogram July 25, 2021 with EF 15%. Lasix held due to hypotension, will resume Lasix IV daily with hold parameters. Patient intermittently refusing oxygen. Continue supplement oxygen to maintain O2 at above 90%. Strict I&O. Daily weight. 2. Shock-occurred postoperatively. Patient required Levophed due to hypotension. Improved and patient transferred to PCU. 3. Upper GI bleed-GI consulted. Underwent upper endoscopy July 27, 2021 which showed red blood in stomach, normal esophagus, multiple bleeding angiectasia's in the stomach, treated with heater probe. Nonbleeding erosive gastropathy. Grade 2 duodenal varices. Initiate PPI. Advance diet per surgery recommendations. Hemoglobin stable. Anticoagulation on hold. 4. Atrial fibrillation with RVR-previously refusing telemetry/medication. Now amendable. Continue metoprolol. Anticoagulation on hold. 5. Acute kidney injury-likely cardiorenal. Will attempt diuresis when blood pressure improves. Trend BMP. 6. CAD with history of PCI May 10, 2021-on aspirin, Plavix, statin, beta- zakia. 7. Hypertension-blood pressure regimen on hold due to hypotension. 8. Hyperlipidemia-continue statin. 9. Tobacco dependence-encouraged cessation. DVT prophylaxis- SCDs This patient was seen by ELVIRA Recinos under the supervision of Dr. Castro. Documented by User: Dr. Akiko Castro MD 07/28/21 16:11 Objective Data Lab / Micro Data Result Diagrams: 07/27/21 14:28 07/27/21 14:28 Charges/Coding Addendum Addendum: Patient seen by Seble FELIX under my supervision Nader seen and examined. He had no complaints this morning. He wasnt very cooperative though. HE was transferred to the ICU yesterday after he became hypoxic while having an EGD. He also became hypotensive and was started on Levophed. He was subsequently weaned off of Levophed and was transferred down to the progressive care unit. Code valid was called because of patient's aggression. He is not being cooperative and is refusing all care. He was on 5 L of oxygen at time of review. O/E: Const alert, oriented x3 and no apparent distress Orientation / Consciousness: awake, oriented to person, oriented to place and oriented to time HEENT normocephalic and moist oral mucous membranes Eyes PERRL, EOMs intact bilaterally and conjunctivae normal Neck no lymphadenopathy Resp normal respiratory effort and clear to auscultation bilaterally Cardio Cardio Narrative: Atrial fibrillation, tachycardic Peripheral Pulses: pulses 2+ throughout GI normal to inspection, nondistended, normoactive bowel sounds, non-tender and non-distended Extremity normal to inspection Skin no rashes or lesions noted Lesions: no lesions Rashes: no rashes Trauma: no lacerations or abrasions Neuro CN's II-XII intact bilaterally, no focal motor deficits, no sensory deficits noted and deep tendon reflexes 2+ bilaterally Psych mental status grossly normal and affect normal Of note, pateint had a repat 2D echo on 07/24/2021 which showed EF of 15%, wtith severe global hypokinesis of the LV, with worsening of his EF compared to previous. EF from April 2021 was 40%. He had cardiac cath in April 2021 for nonstemi and had a stent placed in the circumflex artery and subsequent balloon dilatation of the left circumflex stent. Patient was counseled about LifeVest during previous admission but refused. With a significant reduction in his EF I think it is prudent to get cardiology on board to funeral prearrangement counselor him about getting the LifeVest again. His EGD yesterday showed red blood in the stomach and multiple bleeding angiectasia's in the anterior wall of the stomach which were coagulated. He also had multiple localized nonbleeding erosions and grade 2 duodenal varices. Titrate oxygen to maintain saturation above 90%. Continue holding xarelto. Continue metoprolol. Will speak to cardiology about the life vest though it is highly doubtful if patient will cooperate. Rest as per Seble Martinez CAR INSTALLATIONS SUPERVISOR-C's note, which I have reviewed and endorsed. Visit Charges Inpatient E&M: 04636 Subs Hosp L3
[2021-07-28] MEDS: Furosemide 40 MG/4 ML Vial IV (14:00)
--- NOTE | 2021-07-28 14:36 | NURSING ---
After multiple reports that patient is refusing meds, heart monitor, oxygen, oxygen testing etc. this RN spoke with patient at length about signing himself out AMA or participating in plan of care. At this time patient agrees to participate in care.
[2021-07-28] MEDS: BENZOCAINE/MENTHOL 1 LOZENGE 2 LOZENGE MUCOUS MEM (17:47)
--- NOTE | 2021-07-28 18:35 | PN.GI_ITS ---
Subjective Subjective Patient underwent EGD with treatment of AVMs as a cause of bleeding from his upper GI tract. He has a history of alcohol abuse and end-stage COPD. Along with history of alcoholic hepatitis. Patient was very combative but has calmed down. He is eating without a problem. Objective Data Objective Data Vital Signs: Vital Signs Temp Pulse Resp BP Pulse Ox 98.0 F 132 H 18 99/68 92 07/28/21 07:48 07/28/21 16:29 07/28/21 07:48 07/28/21 07:48 07/28/21 09:55 Oxygen Flow Rate (L/min) [At 5 REST with Oxygen] Oxygen Flow Rate (L/min) 5 Oxygen Delivery Method Nasal Cannula Weight: 253 lb 15.56 oz Body Mass Index (BMI) 38.6 Intake & Output: Intake and Output for Last 24 Hours 07/26/21 07/27/21 07/28/21 23:59 23:59 23:59 Intake Total 1260 / 1260 1191.16 / 1191.16 150 / 150 Output Total 600 / 600 600 / 600 Balance 660 / 660 591.16 / 591.16 150 / 150 Lab / Micro Data Result Diagrams: 07/27/21 14:28 07/27/21 14:28 Micro: Microbiology 07/26/21 10:19 Stool Stool Occult Blood (JIMBO) - Final Occult Blood Positive 07/24/21 00:25 Interface Orders SARS-CoV-2 Antigen (Rapid) - Final Radiography Diagnostic Testing: Radiology Impression Echocardiogram 07/24/21 04:05 Interpretation Summary Normal LV size. The estimated ejection fraction is 15 %. There is severe global hypokinesis of the left ventricle. Compared to previous study, the left ventricular systolic function has worsened.. Contrast injection was performed. Ordering Physician: Ángel Abreu Referring Physician: Tosha Russell Performed By: Carly Edward RDCS Rhythm Strip Rhythm Strip: Sinus Rhythm Rate: 100 Ectopy: PVC(s) Physical Exam Const alert General Appearance: cooperative Orientation / Consciousness: oriented to person HEENT hearing grossly normal bilaterally Head and Scalp: normal to inspection Face and Sinus: face symmetric Nose: external nose normal Mouth: oral and palatal mucosa normal Eyes conjunctivae normal General Eye: normal appearance of both eyes Neck full ROM General: normal visual inspection Lymph Lymphatic: no lymphadenopathy noted Chest inspection of chest normal and palpation of chest normal Chest: symmetrical chest wall rise Resp normal respiratory effort Effort and Inspection: able to speak in complete sentences Cardio regular rate GI non-distended Percussion: normal to percussion Rectal Exam: deferred Neuro Speech: speech normal Gait (Neuro): normal gait Assessment & Plan Assessment/Plan (1) GI bleed: PLAN: Patient is status post treatment AVMs in the stomach. He is on PPI therapy. Recommend to continue 40 mg of pantoprazole twice a day. Patient should have a colonoscopy has never had a colonoscopy in his life. At this time he is not want to take a prep. I will continue to follow. Charges/Coding Visit Charges Inpatient E&M: 42278 Subs Hosp L2
[2021-07-28] MEDS: Atorvastatin Calcium 80 MG Tablet PO (21:29)
[2021-07-28] MEDS: Pantoprazole Sodium 40 MG Tablet PO (21:29)
[2021-07-28] MEDS: LORazepam 0.5 MG Tablet PO (21:32)
[2021-07-29] VITALS (15 sets, daily range): BP systolic 85–102; BP diastolic 52–75; PULSE 66–130; RESP 12–29; TEMP 36.2–36.6; O2SAT 90–100
[2021-07-29 06:15] LABS: Absolute Lymphocyte Count 3.64 X10^3/uL (0.83-4.51); Absolute Neutrophil Count 6.5 X10^3/uL (2.0-7.7); Basophil# 0.05 X10^3/uL; Basophil% 0.4 % (0-1); Eosinophil# 0.07 X10^3/uL; Eosinophils% 0.6 % (0-5); Hematocrit 28.9 % (40-54); Hemoglobin 9.5 g/dL (13.0-16.5); Lymphocyte # 3.64 X10^3/ul (0.83-4.51); Lymphocyte % 31.9 % (19-41); Mean Corp Hgb Conc 32.9 g/dL (32-36); Mean Corpuscular Volume 91.2 fL (80-94); Mean Platelet Vol. 9.2 fl (6.2-12.0); Monocyte# 1.01 X10^3/uL; Monocyte% 8.9 % (0-10); NRBC Flagged by Analyzer 0.3 % (0-5); Neutrophil # 6.54 X10^3/uL (2.7-7.7); Neutrophil % 57.4 % (47-70); Platelet Count 258 K/mm3 (150-450); RBC Distribution Width CV 16.3 % (11.6-14.6); RBC Distribution Width SD 52.3 fl (35.1-43.9); Red Blood Count 3.17 M/mm3 (4.6-6.2); White Blood Count 11.4 K/mm3 (4.4-11.0)
[2021-07-29 06:27] LABS: International Normalized Ratio 1.8; Prothrombin Time (Protime)PT. 20.1 SECONDS (11.7-14.9)
[2021-07-29 06:49] LABS: Anion Gap 9 (5-15); BUN 71 mg/dL (7-18); BUN/Creat Ratio 42.3 RATIO (10-20); Chloride 93 mmol/L (98-107); Creatinine, Serum 1.68 mg/dL (0.70-1.30); EST Glomerular Filtration Rate 45 mL/min (>60); Est Glom Filt Rate - Afr Amer 54 mL/min (>60); Estimated Creatinine Clearance 46.93 ml/min; Glucose 95 mg/dL (74-106); Potassium 3.6 mmol/L (3.5-5.1); Sodium Level 129 mmol/L (136-145)
[2021-07-29] MEDS: guaiFENesin 1,200 MG Tablet 1200 MG PO ×2 (10:21→21:54)
[2021-07-29] MEDS: Metoprolol Tartrate 25 MG Tablet PO (10:21)
[2021-07-29] MEDS: Pantoprazole Sodium 40 MG Tablet PO ×2 (10:21→21:54)
[2021-07-29] MEDS: 0.9% Saline Lock 10 ML Syringe IV ×2 (10:22→18:49)
[2021-07-29] MEDS: Furosemide 40 MG/4 ML Vial IV (10:22)
--- NOTE | 2021-07-29 13:31 | EKG12_ITS ---
Test Reason : CP Blood Pressure : / mmHG Vent. Rate : 100 BPM Atrial Rate : 100 BPM P-R Int : 160 ms QRS Dur : 120 ms QT Int : 374 ms P-R-T Axes : 269 097 -48 degrees QTc Int : [address] & T wave abnormality, consider lateral ischemia Abnormal ECG When compared with ECG of 29-JUL-2021 13:35, MANUAL COMPARISON REQUIRED, DATA IS UNCONFIRMED Confirmed by JARAD ROBISON, JOSE ([id number]), editorial specialist CURLY GRIMES ([id number]) on 08/02/2021 9:49:41 AM Referred By: KENIA Confirmed By:JOSE ABRAHAM MD
--- NOTE | 2021-07-29 13:59 | CON.PCM.RE_ITS ---
Assessment & Plan Assessment/Plan (1) Hyponatremia: (2) BRIEN (acute kidney injury): (3) CHF (congestive heart failure): QUALIFIERS: Heart failure type: systolic Heart failure chronicity: acute on chronic Qualified Code(s): I50.23 - Acute on chronic systolic (congestive) heart failure PLAN: -The patient does not have any worrisome symptoms of severe hyponatremia such as confusion, headache or nausea. There is no need for 3% saline at this point. -I suspect that the hyponatremia is secondary to heart failure. I will check urine osmolality and urine sodium. -The patient also has acute kidney injury which is likely due to cardiorenal syndrome. He appears to be hypervolemic. The patient also has ejection fraction of 15%. -I will check urinalysis and urine indices. -I agree with the current treatment with diuresis using loop diuretic. Loop diuretic should not exacerbate hyponatremia and may help with controlling volume. -We will continue to monitor renal function while the patient is being diuresed. He may need a higher dose of furosemide or more frequent dosing of furosemide if he is not losing at least 1 to 2 kg/day with the current regimen. -There is no need for kidney replacement therapy at this point. Overall prognosis is not good given the presence of hyponatremia which usually portends a poor prognosis in the setting of heart failure. -Current medication is reviewed and are appropriately dosed for his creatinine clearance. HPI Consult Data Date of Consult: 07/29/21 HPI Narrative Reason for Consultation: Hyponatremia and BRIEN. HPI Narrative: The patient is a 56-year-old man with past history of coronary artery disease status post PCI, heart failure with reduced ejection fraction (EF 15%), atrial fibrillation, and polysubstance abuse including ethanol and methamphetamine. The patient was admitted to the hospital on 07/24/2021 with heart failure exacerbation. The patient was just admitted to the hospital between 07/20/2021 until 07/22/2021 with heart failure along with atrial fibrillation/RVR. The patient gained over 10 pounds of weight between the 2 admissions despite leaving the hospital for only 3 days. During this admission, the patient was also seen by GI for upper GI bleed which is from AVM in his stomach. Nephrology is asked to see the patient because of worsening hyponatremia. His serum sodium has decreased from 135 mmol/L yesterday down to 129 mmol/L today. The patient also has acute kidney injury with serum creatinine of 1.68 mg/dL. Baseline serum creatinine in April was 0.8 mg/dL. More recent serum creatinine since the last admission and June 2021 has been around 1.4 mg/dL. The patient denies current headache or nausea. He does complain of chest pain and shortness of breath at rest. He has significant lower extremity edema which is subjectively worse than yesterday despite restart of furosemide. The patient denies lower urinary tract symptoms such as urinary frequency, urgency or incontinence. He denies gross hematuria. He has not been exposed to IV contrast or NSAIDs in the last week. [facility] Medical History (Updated 07/29/21 @ 14:[address] Fauzia Mccormick MD) Acute heart failure BRIEN (acute kidney injury) Alcohol abuse Alcohol abuse Atherosclerotic heart disease of [place] coronary artery without angina pectoris Atrial fibrillation Atrial fibrillation with RVR CHF (congestive heart failure) Chronic pain Congestive heart failure (CHF) Coronary artery disease GI bleed HTN (hypertension) Hypertension Illicit drug use Myocardial infarct Smoker Smoker Substance abuse Substance abuse Transaminitis Home Medications aspirin 81 mg tablet,delayed release 81 mg PO DAILY #90 tab 07/15/21 [Rx Last Taken Unknown] Xarelto 20 mg PO DAILY 07/21/21 [History Last Taken Unknown] clopidogrel 75 mg PO DAILY 07/21/21 [History Last Taken Unknown] lisinopril 5 mg PO DAILY 07/21/21 [History Last Taken Unknown] rosuvastatin 40 mg PO DAILY 07/21/21 [History Last Taken Unknown] furosemide [Lasix] 40 mg PO BID #60 tab 07/22/21 [Rx Last Taken Unknown] metoprolol succinate [Toprol XL] 50 mg PO BID #60 tab 07/22/21 [Rx Last Taken Unknown] spironolactone 25 mg PO DAILY #30 tab 07/22/21 [Rx Last Taken Unknown] Allergy/AdvReac Type Severity Reaction Status Date / Time No Known Allergies Allergy Verified 07/20/21 20:05 Family History Father COPD (chronic obstructive pulmonary disease) Mother Heart disease Hypertension Surgical History Presence of coronary angioplasty implant and graft Presence of stent in coronary artery (~05/11/21) Social History household members: none Smoking Status: Heavy Smoker (>10/day) alcohol intake: current alcohol intake frequency: 3 or more drinks per day Alcohol type: beer details: 12 pack/day- beer substance use type: methamphetamine ROS ROS Narrative 07/31 ROS was completed and are otherwise negative. Physical Exam Narrative General: Anxious appearing man who appears to be older than stated age. He was in a tripod position when I examined him. HEENT: Normocephalic, atraumatic. Mucous membrane moist without mucosal erythema. PERRLA, EOMI. Neck: Supple. Heart: Normal S1, S2, no gallops or murmurs audible. Lungs: Decreased breath sound at bases bilaterally. No appreciable crackles in the upper lung huizar. Abdomen: Normal active bowel sounds, soft, nontender, no guarding or rebound. Extremity: 4+ lower extremity and pedal edema. No clubbing or cyanosis. Neurologic: No focal neurologic deficits. Lab / Micro Data Result Diagrams: 07/29/21 05:40 07/29/21 05:40 Labs: Laboratory Results - last 24 hr 07/29/21 05:40: WBC 11.4 H, RBC 3.17 L, Hgb 9.5 L, Hct 28.9 L, MCV 91.2, MCH 30.0, MCHC 32.9, RDW Std Deviation 52.3 H, RDW Coeff of Jayna 16.3 H, Plt Count 258, MPV 9.2, Immature Gran % (Auto) 0.800, Neut % (Auto) 57.4, Lymph % (Auto) 31.9, [place] % (Auto) 8.9, Eos % (Auto) 0.6, Baso % (Auto) 0.4, Absolute Neuts (auto) 6.5, Absolute Lymphs (auto) 3.64, Nucleated RBC % 0.3 07/29/21 05:40: PT 20.1 H, INR 1.8 07/29/21 05:40: Sodium 129 L, Potassium 3.6, Chloride 93 L, Carbon Dioxide 27.0, Anion Gap 9, BUN 71 H, Creatinine 1.68 H, Estim Creat Clear Calc 46.93, Est GFR (MDRD) Af Amer 54 L, Est GFR (MDRD) Non-Af 45 L, BUN/Creatinine Ratio 42.3 H, Glucose 95, Calcium 8.0 L Rhythm Strip Rhythm Strip: Sinus Rhythm Rate: 100 Ectopy: PVC(s)
--- NOTE | 2021-07-29 14:11 | PCM.PN.HOSP ---
Documented by User: Seble Martinez RESOURCING ADVISOR, RESOURCING ADVISOR-C 07/29/21 14:17 Subjective Subjective Patient seen and examined. States he slept on the floor overnight due to bed being uncomfortable. Reports intermittent shortness of breath. Discussed plan of care including nephrology consult. Patient amenable to plan. Objective Data Objective Data Vital Signs: Vital Signs Temp Pulse Resp BP Pulse Ox 97.9 F 126 H 16 94/63 91 07/29/21 09:25 07/29/21 11:00 07/29/21 09:25 07/29/21 10:21 07/29/21 09:25 Oxygen Flow Rate (L/min) [At 5 REST with Oxygen] Oxygen Flow Rate (L/min) 8 Oxygen Delivery Method Venturi Mask Weight: 254 lb 13.67 oz Body Mass Index (BMI) 38.6 Intake & Output: Intake and Output for Last 24 Hours 07/27/21 07/28/21 07/29/21 23:59 23:59 23:59 Intake Total 1191.16 / 1191.16 390 / 390 Output Total 600 / 600 600 / 600 500 / 500 Balance 591.16 / 591.16 -210 / -210 -500 / -500 Lab / Micro Data Result Diagrams: 07/29/21 05:40 07/29/21 05:40 Labs: Laboratory Results - last 24 hr 07/29/21 05:40: WBC 11.4 H, RBC 3.17 L, Hgb 9.5 L, Hct 28.9 L, MCV 91.2, MCH 30.0, MCHC 32.9, RDW Std Deviation 52.3 H, RDW Coeff of Jayna 16.3 H, Plt Count 258, MPV 9.2, Immature Gran % (Auto) 0.800, Neut % (Auto) 57.4, Lymph % (Auto) 31.9, [place] % (Auto) 8.9, Eos % (Auto) 0.6, Baso % (Auto) 0.4, Absolute Neuts (auto) 6.5, Absolute Lymphs (auto) 3.64, Nucleated RBC % 0.3 07/29/21 05:40: PT 20.1 H, INR 1.8 07/29/21 05:40: Sodium 129 L, Potassium 3.6, Chloride 93 L, Carbon Dioxide 27.0, Anion Gap 9, BUN 71 H, Creatinine 1.68 H, Estim Creat Clear Calc 46.93, Est GFR (MDRD) Af Amer 54 L, Est GFR (MDRD) Non-Af 45 L, BUN/Creatinine Ratio 42.3 H, Glucose 95, Calcium 8.0 L Micro: Microbiology 07/26/21 10:19 Stool Stool Occult Blood (JIMBO) - Final Occult Blood Positive 07/24/21 00:25 Interface Orders SARS-CoV-2 Antigen (Rapid) - Final Rhythm Strip Rhythm Strip: Sinus Rhythm Rate: 100 Ectopy: PVC(s) Physical Exam Const alert, oriented x3 and no apparent distress Orientation / Consciousness: awake, oriented to person, oriented to place and oriented to time HEENT normocephalic and moist oral mucous membranes Eyes PERRL, EOMs intact bilaterally and conjunctivae normal Neck no lymphadenopathy Resp Auscultation: crackles bilateral base and diminished lung sounds Cardio regular rate, regular rhythm and no murmurs Peripheral Pulses: pulses 2+ throughout GI normal to inspection, nondistended, normoactive bowel sounds, non-tender and non-distended Extremity normal to inspection General Extremity: edema bilateral lower extremity Skin no rashes or lesions noted Lesions: no lesions Rashes: no rashes Trauma: no lacerations or abrasions Neuro CN's II-XII intact bilaterally, no focal motor deficits, no sensory deficits noted and deep tendon reflexes 2+ bilaterally Psych Attitude: other Intermittently irritable Mood & Affect: flat affect Assessment & Plan Assessment/Plan (1) Respiratory failure with hypoxia: QUALIFIERS: Chronicity: acute Qualified Code(s): J96.01 - Acute respiratory failure with hypoxia PLAN: 1. Acute hypoxic respiratory failure secondary to acute on chronic heart failure with reduced ejection fraction-echocardiogram July 25, 2021 with EF 15%. Continue IV Lasix with hold parameters, blood pressure remains borderline. Patient intermittently refusing oxygen. Continue supplement oxygen to maintain O2 at above 90%. Strict I&O. Daily weight. 2. Shock-occurred postoperatively. Patient required Levophed due to hypotension. Improved and patient transferred to PCU. 3. Upper GI bleed-GI consulted. Underwent upper endoscopy July 27, 2021 which showed red blood in stomach, normal esophagus, multiple bleeding angiectasia's in the stomach, treated with heater probe. Nonbleeding erosive gastropathy. Grade 2 duodenal varices. Initiate PPI. Advance diet per surgery recommendations. Hemoglobin stable. Anticoagulation/antiplatelet on hold. 4. Atrial fibrillation with RVR- Continue metoprolol. Anticoagulation on hold. 5. Acute kidney injury-likely cardiorenal. Continue IV lasix. Increased per nephrology. Trend BMP. Nephrology consulted. Urine studies ordered. 6. CAD with history of PCI May 10, 2021-on aspirin, Plavix, statin, beta-zakia. Antiplatelets currently on hold. Resume when okay per GI. 7. Hypertension-blood pressure regimen on hold due to hypotension. 8. Hyperlipidemia-continue statin. 9. Tobacco dependence-encouraged cessation. DVT prophylaxis- SCDs This patient was seen by ELVIRA Recinos under the supervision of Dr. Castro. Documented by User: Dr. Akiko Castro MD 07/29/21 16:32 Objective Data Lab / Micro Data Result Diagrams: 07/29/21 05:40 07/29/21 05:40 Charges/Coding Addendum Addendum: Patient seen and examined. He was resting calmly at time I reviewed him. He had no active complaints and review of systems otherwise negative. Patient was not wearing his oxygen but appeared to be saturating well in the mid 90s. He has otherwise remained hemodynamically stable. O/E: onst alert, oriented x3 and no apparent distress Orientation / Consciousness: awake, oriented to person, oriented to place and oriented to time HEENT normocephalic and moist oral mucous membranes Eyes PERRL, EOMs intact bilaterally and conjunctivae normal Neck no lymphadenopathy Resp normal respiratory effort and clear to auscultation bilaterally Cardio Cardio Narrative: Atrial fibrillation, tachycardic Peripheral Pulses: pulses 2+ throughout GI normal to inspection, nondistended, normoactive bowel sounds, non-tender and non-distended Extremity normal to inspection Skin no rashes or lesions noted Lesions: no lesions Rashes: no rashes Trauma: no lacerations or abrasions Neuro CN's II-XII intact bilaterally, no focal motor deficits, no sensory deficits noted and deep tendon reflexes 2+ bilaterally Psych mental status grossly normal and affect normal Plan is to consult nephrology today on account of patient's kidney impairment and the need for diuresis. Levophed has been weaned off and he feels better now. Anticoagulation remains on hold. On metoprolol for A. fib. Aspirin and Plavix remain on hold on account of EGD findings. Patient has been refusing to wear oxygen and is oxygen saturation has been fairly stable though he does desaturate sometimes. He is also hyponatremic this morning which is thought to be due to heart failure and fluid overload. Per nephrology, the BRIEN is likely due to cardiorenal syndrome. Continue diuresis and may need to have a higher dose of Lasix. Rest as per Seble Martinez NP-Dinorah's note which I reviewed and endorsed. Visit Charges Inpatient E&M: 06466 Subs Hosp L2
[2021-07-29 14:48] LABS: Troponin-I HS 310 pg/mL (3.0-78.0)
--- NOTE | 2021-07-29 14:52 | NURSING ---
1330 nurse at lunch and notified that pt called out and c/o chest pain and sob. toggle press folder and feeder and gas charger in to see pt. pt up in chair and threw oxygen across the room saying fucking thing didnt work anyhow ekg ordered and text sent to dr. sow. stat trop ordered.
--- NOTE | 2021-07-29 14:55 | NURSING ---
1430 bp 85/52 while sitting. pt back to bed now and resting on side. pt with ventimask off to side on pillow now. when asked to replace stated, just give me a minute. back off! cps called for ear prob. pt appears comfortable in bed and no real sign of distress obs. lithopone charger aware of trop elevation and mary caal text.
[2021-07-29 16:01] LABS: Troponin-I HS 297 pg/mL (3.0-78.0)
[2021-07-29 16:24] LABS: Bacteria 0 SEEN /hpf (None Seen); Mucous, Urine 0 SEEN /hpf (<or=2+); Red Blood Cells-Urine 0 SEEN /hpf (0-5); White Blood Cells 0 SEEN /hpf (0-5)
[2021-07-29 16:28] LABS: Color, Urine Yellow (Yellow); Glucose, Dipstick Normal (Normal); Ketone-Dipstick Negative (Negative); Leukocyte Esterase-Dipstick Negative /ul (Negative); Nitrite-Dipstick Negative (Negative); Occult Blood-Urine Negative /ul (Negative); Protein-Dipstick 15 mg/dl (Negative); Urine Bilirubin Dipstick Negative (Negative); Urine Clarity Clear (Clear); Urine Urobilinogen 1 mg/dl (Normal)
[2021-07-29 16:35] LABS: Squamous Epithelial Cells - UA 0-5 SEEN /hpf (0-5)
[2021-07-29 16:36] LABS: Urine Sodium 7 mmol/L (Not Establ.)
[2021-07-29 16:50] LABS: Urea Nitrogen, Urine 906 mg/dL (NO RANGE EST.)
[2021-07-29] MEDS: Clopidogrel Bisulfate 75 MG Tablet PO (16:55)
[2021-07-29] MEDS: Heparin Injection (Vial) 5,000 UNIT/ML VIAL 9500 UNIT IV (16:55)
[2021-07-29] MEDS: HEPARIN/D5w 25,000 UNITS 25,000 UNITS/250 ML IV.SOLN. 16 UNITS IV (17:01)
[2021-07-29 17:09] LABS: Osmolality, Urine 438 mOsm/KG
[2021-07-29 17:34] LABS: Partial Thromboplast Time 31.4 Seconds (24.1-36.2)
[2021-07-29] MEDS: Furosemide 100 MG/10 ML Vial 60 MG IV (18:48)
--- NOTE | 2021-07-29 19:32 | NURSING ---
pt in room and reporting that had chest tightness 45min ago again pt in bed holding venti mask tube with no mask up to mouth. pt resting and reports that tightness better pt agrees to try bipap tonight. cps aware.
[2021-07-29 20:38] LABS: Troponin-I HS 319 pg/mL (3.0-78.0)
[2021-07-29] MEDS: Metoprolol Tartrate 50 MG Tablet PO (21:53)
[2021-07-29] MEDS: LORazepam 0.5 MG Tablet PO (21:54)
[2021-07-29] MEDS: Atorvastatin Calcium 80 MG Tablet PO (21:54)
[2021-07-29] MEDS: MELATONIN 3 MG TABLET PO (21:54)
--- NOTE | 2021-07-29 22:17 | EKG12_ITS ---
Test Reason : Blood Pressure : / mmHG Vent. Rate : 088 BPM Atrial Rate : 312 BPM P-R Int : 000 ms QRS Dur : 110 ms QT Int : 374 ms P-R-T Axes : 000 071 -33 degrees QTc Int : 452 ms Atrial fibrillation Nonspecific ST and T wave abnormality Abnormal ECG When compared with ECG of 28-JUL-2021 05:36, MANUAL COMPARISON REQUIRED, DATA IS UNCONFIRMED Confirmed by JARAD ROBISON, JOSE ([id number]), assignment editor CURLY GRIMES ([id number]) on 08/02/2021 9:50:40 AM Referred By: KENIA Confirmed By:JOSE ABRAHAM MD
--- NOTE | 2021-07-29 22:26 | PCM.HOSP.N ---
Hospitalist Note I was called secondary to troponin elevation that is relatively stable with slight upward trend and ongoing chest pain. The patient is currently on a heparin drip, Plavix, and metoprolol. Aspirin is being held given his recent GI bleed. He had multiple AVMs in his stomach that were addressed by gastroenterology. His EKG from earlier today show some mild ST segment depression in the anterior lateral leads predominantly V2 through V6. A repeat EKG is pending to assess for any changes. I discussed the case with Dr. Peters and given his blood pressures we cannot initiate nitroglycerin so he suggested we start Ranexa 1000 mg twice daily. The first dose will be given this evening. If this does not help with his pain we will start morphine 1 to 2 mg every 4 hours as needed for chest pain. He will evaluate the patient in the morning. There is no urgent need for cardiac catheterization at this time per discussion with cardiology. It is likely that he needs his ongoing tachycardia to maintain cardiac output with an EF of 15%.
--- NOTE | 2021-07-29 22:42 | CPS ---
Patient placed on Sleep Lab BiPAP with 4L O2 bled in
[2021-07-29] MEDS: Ranolazine 500 MG Tablet 1000 MG PO (22:56)
[2021-07-30] VITALS (8 sets, daily range): BP systolic 75–140; BP diastolic 56–92; PULSE 69–84; RESP 16–18; TEMP 36.4–36.6; O2SAT 94–96
[2021-07-30 00:06] LABS: Partial Thromboplast Time > 250.0 Seconds (24.1-36.2)
[2021-07-30] MEDS: Midodrine HCl 5 MG Tablet 10 MG PO (02:32)
--- NOTE | 2021-07-30 03:48 | NURSING ---
PATIENT HAS TOLD RN TO LEAVE HIM THE HELL ALONE, THIS RN WILL MONITOR WHEN PATIENT IS AWAKE. PATIENT IS EXTREMELY AGITATED BY FREQUENT VITALS EVEN AFTER EDUCATED ABOUT BP BEING lOW. PATIENT STATES, HE DOES NOT CARE AND LET HIM SLEEP, YOU HAVE BEEN IN MY FACE ALL NIGHT!!!!
--- NOTE | 2021-07-30 04:22 | NURSING ---
PATIENT TOOK OFF TELEMETRY BOX AND REFUSING TO PUT IT BACK ON
--- NOTE | 2021-07-30 08:26 | NURSING ---
This RN in to see and assess patient. This RN discovered patient has purposefully disconnected his IV line from his IV that was infusing the heparin gtt. Patient claims it was only disconnected for a few minutes. This RN reconnected the line and educated patient on purpose of heparin infusion and the importance of keeping connected and running.
[2021-07-30 08:46] LABS: Absolute Lymphocyte Count 3.01 X10^3/uL (0.83-4.51); Absolute Neutrophil Count 6.9 X10^3/uL (2.0-7.7); Basophil# 0.05 X10^3/uL; Basophil% 0.4 % (0-1); Eosinophil# 0.03 X10^3/uL; Eosinophils% 0.3 % (0-5); Hematocrit 27.9 % (40-54); Lymphocyte # 3.01 X10^3/ul (0.83-4.51); Lymphocyte % 26.9 % (19-41); Mean Corp Hgb Conc 32.3 g/dL (32-36); Mean Corpuscular Hgb 29.9 pg (27.0-32.0); Mean Corpuscular Volume 92.7 fL (80-94); Mean Platelet Vol. 9.4 fl (6.2-12.0); Monocyte# 1.08 X10^3/uL; Monocyte% 9.7 % (0-10); NRBC Flagged by Analyzer 0 % (0-5); Neutrophil % 61.8 % (47-70); Platelet Count 263 K/mm3 (150-450); RBC Distribution Width CV 17.2 % (11.6-14.6); RBC Distribution Width SD 52.1 fl (35.1-43.9); Red Blood Count 3.01 M/mm3 (4.6-6.2); White Blood Count 11.2 K/mm3 (4.4-11.0)
[2021-07-30 09:00] LABS: Partial Thromboplast Time 98.7 Seconds (24.1-36.2)
[2021-07-30] MEDS: Clopidogrel Bisulfate 75 MG Tablet PO (10:42)
[2021-07-30] MEDS: Pantoprazole Sodium 40 MG Tablet PO (10:42)
[2021-07-30] MEDS: guaiFENesin 1,200 MG Tablet 1200 MG PO (10:42)
[2021-07-30] MEDS: Furosemide 100 MG/10 ML Vial 60 MG IV (10:43)
[2021-07-30] MEDS: Ranolazine 500 MG Tablet 1000 MG PO (10:47)
--- NOTE | 2021-07-30 11:29 | PCM.CONS.C ---
Assessment & Plan Assessment/Plan (1) Non-ST elevation [place] (NSTEMI): PLAN: Patient does have a 70 to 80% stenosis in a diagonal branch that was noted in the last angiography. His troponin elevation this time could be multifactorial due to the underlying stenosis, drop in hemoglobin, hypotension, CHF. His situation is also complicated by his GI issues with acute GI bleed this admission. While it will be ideal to keep him on triple therapy with aspirin, Plavix, Eliquis because of his GI issues I think it will be reasonable to keep him on Plavix alone at this time. Explained the risks and benefits to the patient and he does understand. When okay with GI, he could potentially be started on Eliquis in addition to Plavix. At this time there is no evidence of stent thrombosis. It will be reasonable to treat the patient medically instead of proceeding with coronary angiography as it is unlikely to change the management in this patient. (2) CHF (congestive heart failure): QUALIFIERS: Heart failure type: systolic Heart failure chronicity: acute on chronic Qualified Code(s): I50.23 - Acute on chronic systolic (congestive) heart failure PLAN: It appears that his MARY inhibitor is held because of acute kidney injury. At the time of discharge his metoprolol tartrate can be switched to succinate. Agree with continuing the Lasix at this time. At last visit patient had refused LifeVest. He was seen by palliative care and they felt he would be a candidate but it looks like the patient was not interested at this time. (3) Presence of stent in coronary artery: HPI Consult Data Date of Consult: 07/30/21 HPI Narrative Reason for Consultation: Coronary artery disease, elevated troponin, chest pain HPI Narrative: KOURTNEY ELIZABETH, is a 56 M who presents increased swelling in his legs. Patient was initially admitted and treated for CHF. He was then found to have melena and hematochezia. He underwent EGD which revealed red blood in the stomach with multiple bleeding angiectasias. This was treated with heater probe. Patient has complicated medical/cardiac history. He recently had STEMI that was treated with drug-eluting stent to the circumflex. Patient had signed out AMA after that admission. He then had cardiac arrest due to ventricular tachycardia and was brought to the hospital 1 to 2 days after discharge. He underwent coronary angiography which revealed patent stent. IVUS was performed and he had PTCA alone within the stent. During the initial admission he was also found to have an EF of 15%. Due to the GI bleed this admission patient's aspirin, Plavix were held. Patient also has history of atrial fibrillation. Yesterday patient complained of chest pain. His troponin went up to around 300s. He was started on Plavix and IV heparin. He was also started on Ranexa as his blood pressure was too low to start on nitro drip. Currently patient is chest pain-free. His EKG did not show any ST elevation that would suggest stent thrombosis. Review of systems: All systems reviewed all else is negative except that in [facility] Medical History (Updated 07/29/21 @ 14:[address] Fauzia Mccormick MD) Acute heart failure BRIEN (acute kidney injury) Alcohol abuse Alcohol abuse Atherosclerotic heart disease of [place] coronary artery without angina pectoris Atrial fibrillation Atrial fibrillation with RVR CHF (congestive heart failure) Chronic pain Congestive heart failure (CHF) Coronary artery disease GI bleed HTN (hypertension) Hypertension Illicit drug use Myocardial infarct Smoker Smoker Substance abuse Substance abuse Transaminitis Home Medications aspirin 81 mg tablet,delayed release 81 mg PO DAILY #90 tab 07/15/21 [Rx Last Taken Unknown] Xarelto 20 mg PO DAILY 07/21/21 [History Last Taken Unknown] clopidogrel 75 mg PO DAILY 07/21/21 [History Last Taken Unknown] lisinopril 5 mg PO DAILY 07/21/21 [History Last Taken Unknown] rosuvastatin 40 mg PO DAILY 07/21/21 [History Last Taken Unknown] furosemide [Lasix] 40 mg PO BID #60 tab 07/22/21 [Rx Last Taken Unknown] metoprolol succinate [Toprol XL] 50 mg PO BID #60 tab 07/22/21 [Rx Last Taken Unknown] spironolactone 25 mg PO DAILY #30 tab 07/22/21 [Rx Last Taken Unknown] Allergy/AdvReac Type Severity Reaction Status Date / Time No Known Allergies Allergy Verified 07/20/21 20:05 Family History Father COPD (chronic obstructive pulmonary disease) Mother Heart disease Hypertension Surgical History Presence of coronary angioplasty implant and graft Presence of stent in coronary artery (~05/11/21) Social History household members: none Smoking Status: Heavy Smoker (>10/day) alcohol intake: current alcohol intake frequency: 3 or more drinks per day Alcohol type: beer details: 12 pack/day- beer substance use type: methamphetamine Physical Exam Const alert and oriented x3 Orientation / Consciousness: awake HEENT normocephalic Eyes no scleral icterus Resp normal respiratory effort Cardio Cardio Narrative: Irregular rhythm Extremity General Extremity: edema bilateral lower extremity Details: moderate Skin no rashes or lesions noted Neuro oriented x3 Psych mental status grossly normal Charges/Coding Visit Charges Inpatient E&M: 44250 Init Hosp L3 Objective Data Vital Signs: Vital Signs Temp Pulse Resp BP Pulse Ox 97.5 F L 69 16 140/92 H 95 07/30/21 10:41 07/30/21 10:41 07/30/21 10:41 07/30/21 10:41 07/30/21 10:41 Oxygen Flow Rate (L/min) [At 5 REST with Oxygen] Oxygen Flow Rate (L/min) 8 Oxygen Delivery Method Room Air Weight: 255 lb 8.252 oz Body Mass Index (BMI) 38.6 Intake & Output: Intake and Output for Last 24 Hours 07/28/21 07/29/21 07/30/21 23:59 23:59 23:59 Intake Total 390 / 390 647.04 / 647.04 Output Total 600 / 600 500 / 1880 1380 / 1380 Balance -210 / -210 -500 / -1440 -732.96 / -732.96 Lab / Micro Data Result Diagrams: 07/30/21 08:08 07/29/21 05:40 Labs: Laboratory Results - last 24 hr 07/29/21 14:08: Troponin I High Sens 310 H* 07/29/21 15:25: Troponin I High Sens 297 H* 07/29/21 16:10: Urine Osmolality 438 07/29/21 16:10: Urine Creatinine 87.60 07/29/21 16:10: Urine Urea Nitrogen 906 07/29/21 16:10: Urine Color Yellow, Urine Clarity Clear, Urine pH 6.0, Ur Specific [place] 1.010, Urine Protein 15 H, Urine Glucose (UA) Normal, Urine Ketones Negative, Urine Occult Blood Negative, Urine Nitrite Negative, Urine Bilirubin Negative, Urine Urobilinogen 1 H, Ur Leukocyte Esterase Negative, Urine RBC 0 SEEN, Urine WBC 0 SEEN, Ur Squamous Epith Cells 0-5 SEEN, Urine Bacteria 0 SEEN, Urine Mucus 0 SEEN 07/29/21 16:10: Ur Random Sodium 7 07/29/21 17:00: APTT 31.4 07/29/21 19:50: Troponin I High Sens 319 H* 07/29/21 23:16: APTT > 250.0 H* 07/30/21 08:08: WBC 11.2 H, RBC 3.01 L, Hgb 9.0 L, Hct 27.9 L, MCV 92.7, MCH 29.9, MCHC 32.3, RDW Std Deviation 52.1 H, RDW Coeff of [place] 17.2 H, Plt Count 263, MPV 9.4, Immature Gran % (Auto) 0.900, Neut % (Auto) 61.8, Lymph % (Auto) 26.9, [place] % (Auto) 9.7, Eos % (Auto) 0.3, Baso % (Auto) 0.4, Absolute Neuts (auto) 6.9, Absolute Lymphs (auto) 3.01, Nucleated RBC % 0 07/30/21 08:08: APTT 98.7 H* Rhythm Strip Rhythm Strip: Sinus Rhythm Rate: 100 Ectopy: PVC(s) Cardiology Labs/Tests 07/29/21 16:10: Urine Color Yellow, Urine Clarity Clear, Urine pH 6.0, Ur Specific [place] 1.010, Urine Protein 15 H, Urine Glucose (UA) Normal, Urine Ketones Negative, Urine Occult Blood Negative, Urine Nitrite Negative, Urine Bilirubin Negative, Urine Urobilinogen 1 H, Ur Leukocyte Esterase Negative, Urine RBC 0 SEEN, Urine WBC 0 SEEN 07/29/21 17:00: APTT 31.4 07/29/21 23:16: APTT > 250.0 H* 07/30/21 08:08: WBC 11.2 H, RBC 3.01 L, Hgb 9.0 L, Hct 27.9 L, MCV 92.7, MCH 29.9, MCHC 32.3, Plt Count 263, MPV 9.4, Immature Gran % (Auto) 0.900, Neut % (Auto) 61.8, Lymph % (Auto) 26.9, [place] % (Auto) 9.7, Eos % (Auto) 0.3, Baso % (Auto) 0.4, Absolute Neuts (auto) 6.9, Nucleated RBC % 0 07/30/21 08:08: APTT 98.7 H* Rhythm: EKG: ECHO: Stress Test: Cardiac Cath: PCI: CT Surgery: Holter monitor: EPS: PPM: CXR: Chest CT Scan:
[2021-07-30 11:43] LABS: Albumin, Serum 2.5 g/dL (3.2-5.0); BUN 65 mg/dL (7-18); BUN/Creat Ratio 41.1 RATIO (10-20); Calcium,Total 8.1 mg/dL (8.5-10.1); Chloride 95 mmol/L (98-107); Creatinine, Serum 1.58 mg/dL (0.70-1.30); EST Glomerular Filtration Rate 48 mL/min (>60); Est Glom Filt Rate - Afr Amer 58 mL/min (>60); Estimated Creatinine Clearance 49.91 ml/min; Glucose 95 mg/dL (74-106); Magnesium 2.5 mg/dL (1.6-2.6); Phosphorus 3.2 mg/dL (2.5-4.9); Potassium 3.5 mmol/L (3.5-5.1); Sodium Level 131 mmol/L (136-145)
--- NOTE | 2021-07-30 12:06 | PN.HOSP_ITS ---
Documented by User: Seble Martinez NP, [employer] 07/30/21 12:22 Subjective Subjective Patient seen and examined. Denies further chest pain. Reports improvement in shortness of breath. Denies other symptoms or complaints. Objective Data Objective Data Vital Signs: Vital Signs Temp Pulse Resp BP Pulse Ox 97.5 F L 69 16 140/92 H 95 07/30/21 10:41 07/30/21 10:41 07/30/21 10:41 07/30/21 10:41 07/30/21 10:41 Oxygen Flow Rate (L/min) [At 5 REST with Oxygen] Oxygen Flow Rate (L/min) 8 Oxygen Delivery Method Room Air Weight: 255 lb 8.252 oz Body Mass Index (BMI) 38.6 Intake & Output: Intake and Output for Last 24 Hours 07/28/21 07/29/21 07/30/21 23:59 23:59 23:59 Intake Total 390 / 390 647.04 / 647.04 Output Total 600 / 600 500 / 1880 1380 / 1380 Balance -210 / -210 -500 / -1440 -732.96 / -732.96 Lab / Micro Data Result Diagrams: 07/30/21 08:08 07/30/21 08:05 Labs: Laboratory Results - last 24 hr 07/29/21 14:08: Troponin I High Sens 310 H* 07/29/21 15:25: Troponin I High Sens 297 H* 07/29/21 16:10: Urine Osmolality 438 07/29/21 16:10: Urine Creatinine 87.60 07/29/21 16:10: Urine Urea Nitrogen 906 07/29/21 16:10: Urine Color Yellow, Urine Clarity Clear, Urine pH 6.0, Ur Specific [place] 1.010, Urine Protein 15 H, Urine Glucose (UA) Normal, Urine Ketones Negative, Urine Occult Blood Negative, Urine Nitrite Negative, Urine Bilirubin Negative, Urine Urobilinogen 1 H, Ur Leukocyte Esterase Negative, Urine RBC 0 SEEN, Urine WBC 0 SEEN, Ur Squamous Epith Cells 0-5 SEEN, Urine Bacteria 0 SEEN, Urine Mucus 0 SEEN 07/29/21 16:10: Ur Random Sodium 7 07/29/21 17:00: APTT 31.4 07/29/21 19:50: Troponin I High Sens 319 H* 07/29/21 23:16: APTT > 250.0 H* 07/30/21 08:05: Sodium 131 L, Potassium 3.5, Chloride 95 L, Carbon Dioxide 30.0, BUN 65 H, Creatinine 1.58 H, Estim Creat Clear Calc 49.91, Est GFR (MDRD) Af Amer 58 L, Est GFR (MDRD) Non-Af 48 L, BUN/Creatinine Ratio 41.1 H, Glucose 95, Calcium 8.1 L, Phosphorus 3.2, Magnesium 2.5, Albumin 2.5 L 07/30/21 08:08: WBC 11.2 H, RBC 3.01 L, Hgb 9.0 L, Hct 27.9 L, MCV 92.7, MCH 29.9, MCHC 32.3, RDW Std Deviation 52.1 H, RDW Coeff of [place] 17.2 H, Plt Count 263, MPV 9.4, Immature Gran % (Auto) 0.900, Neut % (Auto) 61.8, Lymph % (Auto) 26.9, [place] % (Auto) 9.7, Eos % (Auto) 0.3, Baso % (Auto) 0.4, Absolute Neuts (auto) 6.9, Absolute Lymphs (auto) 3.01, Nucleated RBC % 0 07/30/21 08:08: APTT 98.7 H* Micro: Microbiology 07/26/21 10:19 Stool Stool Occult Blood (JIMBO) - Final Occult Blood Positive 07/24/21 00:25 Interface Orders SARS-CoV-2 Antigen (Rapid) - Final Rhythm Strip Rhythm Strip: Sinus Rhythm Rate: 100 Ectopy: PVC(s) Physical Exam Const alert, oriented x3 and no apparent distress Orientation / Consciousness: awake, oriented to person, oriented to place and oriented to time HEENT normocephalic and moist oral mucous membranes Eyes PERRL, EOMs intact bilaterally and conjunctivae normal Neck no lymphadenopathy Resp clear to auscultation bilaterally Auscultation: diminished lung sounds Cardio regular rate, regular rhythm and no murmurs Peripheral Pulses: pulses 2+ throughout GI normal to inspection, nondistended, normoactive bowel sounds, non-tender and non-distended Extremity normal to inspection General Extremity: edema bilateral lower extremity Details: moderate Skin no rashes or lesions noted Lesions: no lesions Rashes: no rashes Trauma: no lacerations or abrasions Neuro CN's II-XII intact bilaterally, no focal motor deficits, no sensory deficits noted and deep tendon reflexes 2+ bilaterally Psych mental status grossly normal Mood & Affect: flat affect Assessment & Plan Assessment/Plan (1) Respiratory failure with hypoxia: QUALIFIERS: Chronicity: acute Qualified Code(s): J96.01 - Acute respiratory failure with hypoxia (2) BRIEN (acute kidney injury): PLAN: 1. Acute hypoxic respiratory failure secondary to acute on chronic heart failure with reduced ejection fraction-echocardiogram July 25, 2021 with EF 15%. Continue IV Lasix. Patient intermittently refusing oxygen. Continue supplement oxygen to maintain O2 at above 90%. Strict I&O. Daily weight. Of note, patient was recently offered LifeVest and has refused. 2. Upper GI bleed-GI consulted. Underwent upper endoscopy July 27, 2021 which showed red blood in stomach, normal esophagus, multiple bleeding angiectasia's in the stomach, treated with heater probe. Nonbleeding erosive gastropathy. Grade 2 duodenal varices. Continue twice daily PPI. Hemoglobin stable. On heparin drip, Plavix. Trend CBC. 3. NSTEMI-cardiology consulted. Patient has known 70 to 80% stenosis of diagonal branch per last heart cath. Ideally, patient would be on triple therapy with aspirin, Plavix and Eliquis however due to recent GI bleed, will continue Plavix and heparin drip with transition to Xarelto at discharge. Plan to continue medical management at this time. Discussed with GI resuming Plavix/Xarelto, okay with proceeding. Initiated on Ranexa per cardiology. 4. Shock-occurred postoperatively. Patient required Levophed due to hypotension. Improved and patient transferred to PCU. 5. Atrial fibrillation with RVR- Continue metoprolol. Xarelto on hold, on he irving drip. Plan to resume Xarelto at discharge if hemoglobin remains stable. 6. Acute kidney injury-likely cardiorenal. Nephrology consulted. Continue IV lasix. Increased per nephrology. Trend BMP. Slightly improved. 7. CAD with history of PCI May 10, 2021-previous on aspirin, Plavix, statin, beta-zakia. Aspirin on hold. 8. Hypertension-blood pressure regimen on hold due to hypotension. 8. Hyperlipidemia-continue statin. 10. Tobacco dependence-encouraged cessation. DVT prophylaxis- SCDs, heparin drip Discharge planning: Anticipate discharge 07/31/2021 if renal function and hemo globin remained stable. This patient was seen by ELVIRA Recinos under the supervision of Dr. Castro. Documented by User: Dr. Akiko Castro MD 07/30/21 13:11 Objective Data Lab / Micro Data Result Diagrams: 07/30/21 08:08 07/30/21 08:05 Charges/Coding Addendum Addendum: Patient seen by Seble FELIX under my supervision Patient seen and examined. He was resting. His troponins checked yesterday after he complained of chest pain were elevated, so he was started on heparin drip. Per his nurse, patient disconnected his heparin drip overnight, but was co nvinced to reconnect it. Cardiology on board. O/E: alert, oriented x3 and no apparent distress Orientation / Consciousness: awake, oriented to person, oriented to place and oriented to time HEENT normocephalic and moist oral mucous membranes Eyes PERRL, EOMs intact bilaterally and conjunctivae normal Neck no lymphadenopathy Resp normal respiratory effort and clear to auscultation bilaterally Cardio Cardio Narrative: Atrial fibrillation, tachycardic Peripheral Pulses: pulses 2+ throughout GI normal to inspection, nondistended, normoactive bowel sounds, non-tender and non-distended Extremity normal to inspection Skin no rashes or lesions noted Lesions: no lesions Rashes: no rashes Trauma: no lacerations or abrasions Neuro CN's II-XII intact bilaterally, no focal motor deficits, no sensory deficits noted and deep tendon reflexes 2+ bilaterally Psych mental status grossly normal and affect normal Paitent is now also being managed for nonstemi. He is on heparin drip. he was started on ranexa yesterday per cardiology. Nephrology also on board o/a of impaired kidney function. He did have a cath a few months ago which showed 70- 80% stenosis of the diagonal branch. GI ok with patient resuming plavix and xarelto eventually. on IV lasix. Per cardiology, to treat nonstemi medically. Visit Charges Inpatient E&M: 97966 Subs Hosp L3
--- NOTE | 2021-07-30 12:55 | NURSING ---
patient refusing to wear lunchroom monitor
--- NOTE | 2021-07-30 14:09 | DS.PCM_ITS ---
Documented by User: Seble Martinez NP, [employer]ADER-C 07/30/21 14:26 Providers Date of Admission: 07/24/21 Date of Discharge: 07/30/21 Primary Care Physician: ELVIRA Allen Consultations 07/26/21 12:56 Consult: General Surgery Routine Consulting Provider: Roby Pierce Reason for Consult: hematochezia EMERGENT Consult: No MD Notified: Yes Date Notified: 07/26/21 Time Notified: 12:57 Method of Notification: Text 07/26/21 13:16 Consult: Gastroenterology Routine Consulting Provider: Roby Pierce Reason for Consult: hematochezia EMERGENT Consult: No MD Notified: Yes Date Notified: 07/26/21 Time Notified: 13:16 Method of Notification: Text 07/27/21 19:57 Consult: Financial Services Sales Representative / Pulmonary Medicine Routine Consulting Provider: Pulmonary Medicine [facility] Reason for Consult: icu admission EMERGENT Consult: No MD Notified: Yes Date Notified: 07/27/21 Time Notified: 19:00 Method of Notification: Text Method of Consult:: In-Person 07/29/21 08:36 Consult: Nephrology Routine Consulting Provider: [facility] [place] [facility] Reason for Consult: BRIEN, hyponatremia EMERGENT Consult: No MD Notified: Yes Date Notified: 07/29/21 Time Notified: 08:37 Method of Notification: Answering Service 07/29/21 14:55 Consult: Cardiology Routine Consulting Provider: Isma Peters Reason for Consult: Elevated trop, ischemic cardiomyopathy EMERGENT Consult: No MD Notified: Yes Date Notified: 07/29/21 Time Notified: 14:59 Method of Notification: Text Reason For Visit: ACUTE EXACERBATION OF CHF Diagnosis Discharge Diagnosis (1) Respiratory failure with hypoxia: Status: Acute Code(s): J96.91 - Respiratory failure, unspecified with hypoxia Qualifiers: Chronicity: acute Qualified Code(s): J96.01 - Acute respiratory failure with hypoxia (2) BRIEN (acute kidney injury): Status: Acute Code(s): N17.9 - Acute kidney failure, unspecified Medications at Discharge Home Medications Xarelto 20 mg PO DAILY 07/21/21 clopidogrel 75 mg PO DAILY 07/21/21 rosuvastatin 40 mg PO DAILY 07/21/21 furosemide [Lasix] 40 mg PO BID #60 tab 07/22/21 metoprolol succinate [Toprol XL] 50 mg PO BID #60 tab 07/22/21 spironolactone 25 mg PO DAILY #30 tab 07/22/21 pantoprazole 40 mg PO BID 30 Days #60 tab 07/30/21 ranolazine 1,000 mg PO BID 30 Days #120 tab 07/30/21 Hospital Course Operations None Procedures EGD Summary of Care Provided Minutes Spent on Discharge: 40 Hospital Course: Patient is a 56-year-old male admitted 07/24/2021 due to shortness of breath. 1. Acute hypoxic respiratory failure secondary to acute on chronic heart failure with reduced ejection fraction-echocardiogram July 25, 2021 with EF 15%. Continue IV Lasix. Oxygen stable on room air at discharge however no ambulatory pulse ox completed due to patient refusal. Of note, patient was recently offered LifeVest and has refused. Plan for further IV diuresis with Lasix and monitoring CBC on heparin/Plavix however patient signed out AGAINST MEDICAL ADVICE. 2. Upper GI bleed-GI consulted. Underwent upper endoscopy July 27, 2021 which showed red blood in stomach, normal esophagus, multiple bleeding angiectasia's in the stomach, treated with heater probe. Nonbleeding erosive gastropathy. Grade 2 duodenal varices. Continue twice daily PPI. Hemoglobin stable. On heparin drip, Plavix. Trend CBC. 3. NSTEMI-cardiology consulted during admission. Patient has known 70 to 80% stenosis of diagonal branch per last heart cath. Ideally, patient would be on triple therapy with aspirin, Plavix and Eliquis however due to recent GI bleed, will continue Plavix and heparin drip with transition to Xarelto at discharge. Plan to continue medical management at this time. Discussed with GI resuming Plavix/Xarelto, okay with proceeding. Initiated on Ranexa per cardiology. 4. Shock-occurred postoperatively. Patient required Levophed due to h ypotension. Resolved. 5. Atrial fibrillation with RVR- Continue metoprolol, Xarelto. 6. Acute kidney injury-likely cardiorenal. Nephrology consulted during admission, IV Lasix increased. Creatinine trending down. 7. CAD with history of PCI May 10, 2021-previous on aspirin, Plavix, statin, b eta-zakia. Aspirin on hold. 8. Hypertension-blood pressure regimen on hold due to hypotension. 8. Hyperlipidemia-continue statin. 10. Tobacco dependence-encouraged cessation. Physical Exam Const alert, oriented x3 and no apparent distress Orientation / Consciousness: awake, oriented to person, oriented to place and oriented to time HEENT normocephalic and moist oral mucous membranes Eyes PERRL, EOMs intact bilaterally and conjunctivae normal Neck no lymphadenopathy Resp Auscultation: clear to auscultation and diminished lung sounds Cardio regular rate, regular rhythm and no murmurs Peripheral Pulses: pulses 2+ throughout GI normal to inspection, nondistended, normoactive bowel sounds, non-tender and non-distended Extremity normal to inspection General Extremity: edema bilateral lower extremity Skin no rashes or lesions noted Lesions: no lesions Rashes: no rashes Trauma: no lacerations or abrasions Neuro CN's II-XII intact bilaterally, no focal motor deficits, no sensory deficits noted and deep tendon reflexes 2+ bilaterally Psych Attitude: other Intermittently irritable Mood & Affect: flat affect Patient seen and examined prior to discharge. Physical assessment as noted ab ove. Patient signed out AGAINST MEDICAL ADVICE. This patient was seen by ELVIRA Recinos under the supervision of Dr. Castro. Weight / BMI Weight Weight: 255 lb 8.252 oz Body Mass Index (BMI) 38.6 ABG / Lab / Microbiology Data Result Diagrams: 07/30/21 08:08 07/30/21 08:05 Laboratory: Laboratory Results - last 24 hr 07/29/21 14:08: Troponin I High Sens 310 H* 07/29/21 15:25: Troponin I High Sens 297 H* 07/29/21 16:10: Urine Osmolality 438 07/29/21 16:10: Urine Creatinine 87.60 07/29/21 16:10: Urine Urea Nitrogen 906 07/29/21 16:10: Urine Color Yellow, Urine Clarity Clear, Urine pH 6.0, Ur Specific [place] 1.010, Urine Protein 15 H, Urine Glucose (UA) Normal, Urine Ketones Negative, Urine Occult Blood Negative, Urine Nitrite Negative, Urine Bilirubin Negative, Urine Urobilinogen 1 H, Ur Leukocyte Esterase Negative, Urine RBC 0 SEEN, Urine WBC 0 SEEN, Ur Squamous Epith Cells 0-5 SEEN, Urine Bacteria 0 SEEN, Urine Mucus 0 SEEN 07/29/21 16:10: Ur Random Sodium 7 07/29/21 17:00: APTT 31.4 07/29/21 19:50: Troponin I High Sens 319 H* 07/29/21 23:16: APTT > 250.0 H* 07/30/21 08:05: Sodium 131 L, Potassium 3.5, Chloride 95 L, Carbon Dioxide 30.0, BUN 65 H, Creatinine 1.58 H, Estim Creat Clear Calc 49.91, Est GFR (MDRD) Af Amer 58 L, Est GFR (MDRD) Non-Af 48 L, BUN/Creatinine Ratio 41.1 H, Glucose 95, Calcium 8.1 L, Phosphorus 3.2, Magnesium 2.5, Albumin 2.5 L 07/30/21 08:08: WBC 11.2 H, RBC 3.01 L, Hgb 9.0 L, Hct 27.9 L, MCV 92.7, MCH 29.9, MCHC 32.3, RDW Std Deviation 52.1 H, RDW Coeff of Jayna 17.2 H, Plt Count 263, MPV 9.4, Immature Gran % (Auto) 0.900, Neut % (Auto) 61.8, Lymph % (Auto) 26.9, [place] % (Auto) 9.7, Eos % (Auto) 0.3, Baso % (Auto) 0.4, Absolute Neuts (auto) 6.9, Absolute Lymphs (auto) 3.01, Nucleated RBC % 0 07/30/21 08:08: APTT 98.7 H* Microbiology: Microbiology 07/26/21 10:19 Stool Stool Occult Blood (JIMBO) - Final Occult Blood Positive 07/24/21 00:25 Interface Orders SARS-CoV-2 Antigen (Rapid) - Final Meaningful Use Info Meaningful Use Diagnoses (Choose all that apply): CHF CHF MARY/ARB ordered at discharge?: No Reason MARY/ARB not ordered?: Worsening renal function Documented LVEF (%): 15 Discharge Plan Admission Admit Date/Time: 07/24/21 03:16 Primary Reason for Your Visit: CHF, NSTEMI Attending Provider: Akiko Castro Primary Care Provider: Tosha Russell NP Consulting Providers: Roby Pierce ; Yony Lamar ; Brian Stephens ; Mena De Jesus [employer] LOADER ; Ary Kohler ; Krishan Gu ; Yaya Marsh ; Fauzia Mccormick ; Michelle Ayala ; Lenny Genao ; Jack Ludny ; Janina Vergara ; Isma Peters Discharge Orders/Prescriptions Prescriptions: New pantoprazole 40 mg Tablet,Delayed Release (Dr/Ec) 40 mg PO BID 30 Days Qty: 60 RF: 0 ranolazine 500 mg Tablet Extended Release 12 Hr 1,000 mg PO BID 30 Days Qty: 120 RF: 0 Continued clopidogrel 75 mg tablet 75 mg PO DAILY RF: 0 rosuvastatin 40 mg tablet 40 mg PO DAILY RF: 0 Xarelto 20 mg tablet 20 mg PO DAILY RF: 0 metoprolol succinate [Toprol XL] 50 mg tablet extended release 24 hr 50 mg PO BID Qty: 60 RF: 0 furosemide [Lasix] 40 mg tablet 40 mg PO BID Qty: 60 RF: 0 spironolactone 25 mg tablet 25 mg PO DAILY Qty: 30 RF: 0 Discontinued aspirin [Adult Low Dose Aspirin] 81 mg tablet,delayed release (DR/EC) 81 mg PO DAILY Qty: 90 RF: 3 lisinopril 5 mg tablet 5 mg PO DAILY RF: 0 Referrals / Follow Up: Tosha Russell NP, [employer]ER-C [Primary Care Provider] - In 1 Week Abbie Johnson PA, PA [PHYSICIAN HAND ROUTER OPERATOR] - In 1 Week Disposition Disposition (needs filled in before D/C Order can be placed): Against Medical Advice Documented by User: Dr. Akiko Castro MD 07/31/21 13:58 Providers Date of Admission: 07/24/21 Reason For Visit: ACUTE EXACERBATION OF CHF Medications at Discharge Home Medications Xarelto 20 mg PO DAILY 07/21/21 clopidogrel 75 mg PO DAILY 07/21/21 rosuvastatin 40 mg PO DAILY 07/21/21 furosemide [Lasix] 40 mg PO BID #60 tab 07/22/21 metoprolol succinate [Toprol XL] 50 mg PO BID #60 tab 07/22/21 spironolactone 25 mg PO DAILY #30 tab 07/22/21 pantoprazole 40 mg PO BID 30 Days #60 tab 07/30/21 ranolazine 1,000 mg PO BID 30 Days #120 tab 07/30/21 ABG / Lab / Microbiology Data Result Diagrams: 07/30/21 08:08 07/30/21 08:05 Discharge Plan Admission Admit Date/Time: 07/24/21 03:16 Primary Reason for Your Visit: CHF, NSTEMI Attending Provider: Akiko Castro Primary Care Provider: Tosha Russell NP Consulting Providers: Roby Pierce ; Yony Lamar ; Brian Stephens ; Mena De Jesus NP ; Ary Kohler ; Krishan Gu ; Yaya Marsh ; Fauzia Mccormick ; Michelle Ayala ; Lenny Genao ; Jack Lundy ; Janina Vergara ; Isma Peters Discharge Orders/Prescriptions Prescriptions: New pantoprazole 40 mg Tablet,Delayed Release (Dr/Ec) 40 mg PO BID 30 Days Qty: 60 RF: 0 ranolazine 500 mg Tablet Extended Release 12 Hr 1,000 mg PO BID 30 Days Qty: 120 RF: 0 Continued clopidogrel 75 mg tablet 75 mg PO DAILY RF: 0 rosuvastatin 40 mg tablet 40 mg PO DAILY RF: 0 Xarelto 20 mg tablet 20 mg PO DAILY RF: 0 metoprolol succinate [Toprol XL] 50 mg tablet extended release 24 hr 50 mg PO BID Qty: 60 RF: 0 furosemide [Lasix] 40 mg tablet 40 mg PO BID Qty: 60 RF: 0 spironolactone 25 mg tablet 25 mg PO DAILY Qty: 30 RF: 0 Discontinued aspirin [Adult Low Dose Aspirin] 81 mg tablet,delayed release (DR/EC) 81 mg PO DAILY Qty: 90 RF: 3 lisinopril 5 mg tablet 5 mg PO DAILY RF: 0 Referrals / Follow Up: Tosha Russell NP, [employer]ADER-C [Primary Care Provider] - In 1 Week Abbie Johnson, PA [PHYSICIAN HAND ROUTER OPERATOR] - In 1 Week Disposition Disposition (needs filled in before D/C Order can be placed): Against Medical Advice Charges/Coding Addendum Addendum: Patient seen by Seble FELIX under my supervision Patient is a 56-year-old male with a past medical history as outlined was ad mitted through the ED on 07/24/2021 with a complaint of progressively worsening shortness of breath with associated fatigue and weakness, orthopnea and PND. He also had a 30 pound weight gain in about 3 days. He was admitted and managed for acute hypoxic respiratory failure due to acute on chronic systolic heart failure. Patient had had a cath in April 2021 with PCI and drug-eluting stent to the proximal circumflex artery. He left the hospital AGAINST MEDICAL ADVICE at that time. At that time, he had EF of 35% and 2D echo done during this admission showed EF of 15%. Patient was diuresed with IV Lasix. Hospital course was complicated by dark stools which was concerning as he was on Xarelto. Gastroenterology was therefore consulted and patient had EGD which showed blood in the stomach and a normal esophagus as well as multiple bleeding angiectasia is in the stomach which was treated with a heater probe. He also had grade 2 to duodenal varices. Post endoscopic course was complicated by hypoxia in PACU as well as hypotension which required vasopressors. Patient was Ambu bag crossing PACU and was requiring increasing amounts of oxygen. Plan was to transfer patient to the ICU but he was weaned off of Levophed and weaned down to 2 to 3 L of oxygen. However on arrival on the floor, oxygen requirements gradually trended up. Patient was no cooperative with his care. He subsequently complained of chest pain and troponins done showed evidence of non-STEMI so cardiology was consulted and he was started on heparin drip. Patient was also again not compliant with his medication and compliant with medical staff. Patient signed out AGAINST MEDICAL ADVICE on 07/30/2021. Patient was seen and examined on the day of discharge. Please see progress note dated 07/30/2021 for physical examination and assessment and plan. Rest as per ELVIRA Recinos's notes which I reviewed and endorsed. Visit Charges Inpatient E&M: [id number] Disch Hosp
--- NOTE | 2021-07-30 14:10 | NURSING ---
Patient requested to leave AMA, was educated on current POC and risks for leaving AMA. AMA papers signed, IVs removed and patient left with all of his belongings. notified.
== END 2021-07-30 14:15 | disposition left against medical advice (07) | DRG 194 ==
LOC: ED 07-24 02:56 → PCU 07-24 03:31 → ICU 07-27 14:53 → PCU 07-28 14:24
PROVIDERS: Anesthesiology; Internal Medicine Gastroenterology; Internal Medicine Nephrology; Nurse Practitioner Family; Physician Assistant; Specialist; Admitting Provider Hospitalist; Emergency Provider Emergency Medicine; PCP Nurse Practitioner Adult Health; Visit Provider Student in an Organized Health Care Education/Training Program
PROC: 0DJD8ZZ Inspection of Lower Intestinal Tract, Via Natural or Artificial Opening Endoscopic (ICD-10-PCS; CPT 45378; principal; 2021-07-27 11:25)
DX: I13.0 Hypertensive heart and chronic kidney disease with heart failure and stage 1 through stage 4 chronic kidney disease, or unspecified chronic kidney disease (principal); I50.23 Acute on chronic systolic (congestive) heart failure; I21.4 Non-ST elevation (NSTEMI) myocardial infarction; J96.01 Acute respiratory failure with hypoxia; N17.9 Acute kidney failure, unspecified; E87.1 Hypo-osmolality and hyponatremia; J44.1 Chronic obstructive pulmonary disease with (acute) exacerbation; K31.811 Angiodysplasia of stomach and duodenum with bleeding; T81.10XA Postprocedural shock unspecified, initial encounter; K92.1 Melena; I25.10 Atherosclerotic heart disease of native coronary artery without angina pectoris; I48.91 Unspecified atrial fibrillation; F10.20 Alcohol dependence, uncomplicated; F15.10 Other stimulant abuse, uncomplicated; F17.200 Nicotine dependence, unspecified, uncomplicated; E87.6 Hypokalemia; Y83.8 Other surgical procedures as the cause of abnormal reaction of the patient, or of later complication, without mention of misadventure at the time of the procedure; Y92.238 Other place in hospital as the place of occurrence of the external cause; I86.8 Varicose veins of other specified sites; E78.5 Hyperlipidemia, unspecified; K70.10 Alcoholic hepatitis without ascites; R79.1 Abnormal coagulation profile; I25.2 Old myocardial infarction; Z79.899 Other long term (current) drug therapy; Z79.02 Long term (current) use of antithrombotics/antiplatelets; Z79.01 Long term (current) use of anticoagulants; Z79.82 Long term (current) use of aspirin; Z91.14 Patient's other noncompliance with medication regimen; Z95.5 Presence of coronary angioplasty implant and graft; Z91.19 Patient's noncompliance with other medical treatment and regimen; Z86.74 Personal history of sudden cardiac arrest; I25.5 Ischemic cardiomyopathy
CPT/HCPCS: 36415; 71045; 80048; 80053; 80069; 80076; 81001; 82274; 82570; 83540; 83550; 83735; 83880; 83935; 84100; 84132; 84300; 84484; 84540; 85025; 85027; 85610; 85730; 87426; 93005; 93308; 94002; 94003; 94640; 97162; 97166; 97802; 99285; J7030; J7040; J7050; J7120; Q9957; A4216; C8924; J1940; J2405; J3490